=== PATIENT | female | born 1940 | race Caucasian/White ===

== ENCOUNTER 2016-08-20 12:11 | Outpatient (CLI) | payer MEDICARE, OTHER | END 2016-08-20 23:59 | DX: I48.2 Chronic atrial fibrillation (principal); E87.6 Hypokalemia ==

== ENCOUNTER 2016-10-07 12:48 | Outpatient (CLI) | payer MEDICARE, OTHER | END 2016-10-07 12:49 | disposition home or self-care (01) | DX: I48.0 Paroxysmal atrial fibrillation (principal); R35.0 Frequency of micturition ==

== ENCOUNTER 2016-10-08 08:00 | Outpatient (CLI) | payer MEDICARE, OTHER | END 2016-10-08 08:01 | DX: R35.0 Frequency of micturition (principal) ==

== ENCOUNTER 2016-11-17 09:58 | Outpatient (CLI) | payer MEDICARE, OTHER | END 2016-11-17 09:59 | disposition home or self-care (01) | LOC: LAB.F 09:58 | PROVIDERS: ATTEND Internal Medicine Cardiovascular Disease | DX: I48.2 Chronic atrial fibrillation (principal) | CPT/HCPCS: 85610 ==

== ENCOUNTER 2016-11-27 10:13 | Outpatient (CLI) | payer MEDICARE, OTHER ==
[2016-11-27 18:07] LABS: INR 1.8 (0.8-1.2); PT - PROTHROMBIN TIME 20.9 secs (9.9-12.6)
== END 2016-11-27 10:14 | disposition home or self-care (01) ==
LOC: LAB.F 10:13
PROVIDERS: ATTEND Internal Medicine Cardiovascular Disease
DX: I48.2 Chronic atrial fibrillation (principal)
CPT/HCPCS: 36415; 85025; 85610

== ENCOUNTER 2017-05-20 08:00 | Outpatient (CLI) | payer MEDICARE, OTHER | END 2017-05-20 23:59 | LOC: LAB.F 08:00 | PROVIDERS: ATTEND Internal Medicine Cardiovascular Disease | DX: I48.2 Chronic atrial fibrillation (principal) | CPT/HCPCS: 85610 ==

== ENCOUNTER 2017-06-18 13:02 | Outpatient (CLI) | payer MEDICARE, OTHER ==
[2017-06-18 17:52] LABS: ALBUMIN 3.6 g/dL (3.2-5.5); ALBUMIN/GLOBULIN RATIO 1.1 (1.0-2.2); ALKALINE PHOSPHATASE 83 IU/L (42-121); ALT ALANINE AMINOTRANSFERASE 15 IU/L (10-60); AST ASPARTATE AMINOTRANSFERASE 19 IU/L (10-42); BILIRUBIN,TOTAL 0.5 mg/dL (0.2-1.0); BUN - BLOOD UREA NITROGEN 29 mg/dL (6-20); CALCIUM 8.3 mg/dL (8.5-10.3); CARBON DIOXIDE - CO2 29 mmol/L (21-32); CHLORIDE 99 mmol/L (101-111); CHOL/HDL RATIO 4.9 (<4.4); CHOLESTEROL 230 mg/dL; CREATININE 1.2 mg/dL (0.4-1.0); GFR - MDRD 43 (>89); GLUCOSE 102 mg/dL (70-100); HDL CHOLESTEROL 47 mg/dL; LDL CHOLESTEROL,CALCULATED 120 mg/dL; LDL/HDL RATIO 2.6 (<4.4); SODIUM 137 mmol/L (135-145); TOTAL PROTEIN 6.9 g/dL (6.7-8.2); VLDL CHOLESTEROL 63 mg/dL
[2017-06-18 17:54] LABS: BASOPHILS % (AUTO) 0.6 %; EOSINOPHILS # (AUTO) 0.1 10^3/uL (0.0-0.7); EOSINOPHILS % (AUTO) 1.9 %; HGB - HEMOGLOBIN 12.5 g/dL (12.0-16.0); LYMPHOCYTES # (AUTO) 1.5 10^3/uL (1.5-3.5); LYMPHOCYTES % (AUTO) 20.5 %; MEAN CORPUSCULAR HEMOGLOBIN 26.6 pg (27.0-31.0); MEAN CORPUSCULAR HGB CONC 31.8 g/dL (32.0-36.0); MEAN CORPUSCULAR VOLUME 83.8 fL (81.0-99.0); MEAN PLATELET VOLUME 8.3 fL (7.9-10.8); MONOCYTES # (AUTO) 0.7 10^3/uL (0.0-1.0); MONOCYTES % (AUTO) 8.7 %; NEUTROPHILS # (AUTO) 5.1 10^3/uL (1.5-6.6); NEUTROPHILS % (AUTO) 68.3 %; PLT - PLATELET COUNT 330 10^3/uL (130-450); RED BLOOD COUNT 4.68 10^6/uL (4.20-5.40); WHITE BLOOD COUNT 7.5 x10^3/uL (4.8-10.8)
[2017-06-18 18:09] LABS: HB2 TOTAL 13.1 g/dL; HEMOGLOBIN A1C 0.56 g/dL; HEMOGLOBIN A1C % 6.1 % (4.6-6.2)
== END 2017-06-18 13:03 | disposition home or self-care (01) ==
LOC: LAB.F 13:02
PROVIDERS: ATTEND Internal Medicine Cardiovascular Disease
DX: E11.9 Type 2 diabetes mellitus without complications (principal); Z79.01 Long term (current) use of anticoagulants; I48.91 Unspecified atrial fibrillation; I10 Essential (primary) hypertension; I48.2 Chronic atrial fibrillation
CPT/HCPCS: 36415; 80053; 80061; 83036; 84443; 85025; 85610

== ENCOUNTER 2017-08-28 19:18 | Outpatient (CLI) | payer MEDICARE, OTHER | END 2017-08-28 19:19 | disposition critical access hospital (66) | LOC: EMS 19:18 | PROVIDERS: ATTEND Surgery | DX: Z03.89 Encounter for observation for other suspected diseases and conditions ruled out (principal); W18.39XA Other fall on same level, initial encounter; Y92.039 Unspecified place in apartment as the place of occurrence of the external cause | CPT/HCPCS: A0425; A0429 ==

== ENCOUNTER 2017-08-28 19:42 | Emergency (ER) | payer MEDICARE, OTHER ==
--- NOTE | 2017-08-28 21:00 | ED Physician Documentation ---
PD HPI FOCAL NEURO - Stated complaint Stated Complaint: WEAKNESS - Chief complaint Chief Complaint: Neuro - History obtained from History obtained from: Patient, Family () - History of Present Illness Timing - onset: Other (This is a modestly demented 76-year-old woman with history of diabetes who the noticed after sitting down after lunch today she was having difficulty with the right side was unable to walk normally. 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 - Present Medications Home Medications: Ambulatory Orders Medication Instructions Recorded Confirmed Cephalexin [Keflex] 500 mg PO QID PRN 08/28/17 Ciprofloxacin [Cipro] 250 mg PO Q12H #5 tablet 08/28/17 Diltiazem HCl [Diltiazem 24Hr Cd] 360 mg PO DAILY 08/28/17 Donepezil HCl [Donepezil HCl Odt] 10 mg PO DAILY 08/28/17 Furosemide [Lasix] 40 mg PO DAILY 08/28/17 Losartan Potassium 100 mg PO DAILY 08/28/17 Metformin HCl [Metformin HCl ER] 500 mg PO 08/28/17 Metoprolol Succinate 50 mg PO DAILY 08/28/17 Nystatin [Nystop] 1 applic TOP TID 14 Days #2 bottle 08/28/17 Sertraline HCl 100 mg PO DAILY 08/28/17 Triamcinolone 0.1% Cream [Kenalog 1 appful PRN 08/28/17 0.1% Cream] Warfarin [Coumadin] 5 - 7.5 mg PO DAILY 08/28/17 - Allergies Allergies/Adverse Reactions: Allergies Allergy/AdvReac Type Severity Reaction Status Date / Time No Known Drug Allergies Allergy Verified 08/28/17 19:49 - Social History Does the pt smoke?: No Smoking Status: Never smoker Does the pt drink ETOH?: No Does the pt have substance abuse?: No - Immunizations Immunizations are current?: Yes PD ED PE NORMAL - Vitals Vital signs reviewed: Yes - General General: Other (She does know the month and the year and is cooperative but a poor historian for short-term events and defers to her for answers on those.) - HEENT HEENT: PERRL, EOMI, Pharynx benign - Neck Neck: Supple, no meningeal sign, No bony TTP - Cardiac Cardiac: No murmur, Other (Frequent extrasystoles) - Respiratory Respiratory: No respiratory distress, Clear bilaterally - Abdomen Abdomen: Non tender, Non distended - Derm Derm: Normal color, Warm and dry, Other (Per Nurse, bad yeast infection under the breasts) - Extremities Extremities: No edema, No calf tenderness / cord - Neuro Neuro: Alert and oriented X 3 Eye Opening: Spontaneous Motor: Obeys Commands Verbal: Oriented GCS Score: 15 - Psych Psych: Normal mood, Normal affect NIHSS - Time Time: 20:50 - Level of Consciousness Level of consciousness: (0) Alert, Keenly responsive LOC Questions: (0) Answers both Q's correct LOC Commands: (0) Performs both correctly - Gaze Best Gaze: (0) Normal - Visual Visual: (0) No loss - Facial Palsy Facial Palsy: (0) Normal, symmetrical movement - Motor Arms (both separate) Motor Arm (right): (0) No drift Motor Arm (left): (0) No drift - Motor Legs (both separate) Motor Leg (right): (0) No drift Motor Leg (left): (0) No drift - Limb Ataxia Limb Ataxia: (0) Absent - Sensory Sensory: (0) Normal - Best Language Best Language: (0) No aphasia - Dysarthria Dysarthria: (0) Normal - Extinction and Inattention (formally neg Extinction and inattention: (0) No abnormality - Total Score/Results Total Score/Result: 0 Results - Vitals Vitals: Vital Signs - 24 hr 08/28/17 08/28/17 19:44 20:53 Temperature 36.9 C Heart Rate 99 78 Respiratory 18 20 Rate Blood Pressure 123/108 H 118/74 O2 Saturation 95 95 Oxygen O2 Source Room air - EKG (time done) 2107 Rate: Rate (enter#) (77) Rhythm: Atrial fibrillation [place]: Normal QRS: Normal Ischemia: Normal ST segments Computer interpretation: Agree with computer - Labs Labs: Laboratory Tests 08/28/17 08/28/17 08/28/17 21:36 21:36 21:36 WBC 11.9 H RBC 4.70 Hgb 12.4 Hct 39.2 MCV 83.4 MCH 26.5 L MCHC 31.7 L RDW 15.6 H Plt Count 371 MPV 7.1 L Neut # 9.3 H Lymph # 1.4 L [place] # 0.9 Eos # 0.2 Baso # 0.1 Absolute Nucleated RBC 0.00 Nucleated RBC % 0.0 PT 28.0 H INR 2.6 H Sodium 137 Potassium 3.8 Chloride 97 L Carbon Dioxide 31 Anion Gap 9.0 BUN 30 H Creatinine 1.1 H Estimated GFR (MDRD) 48 L Glucose 115 H Calcium 8.5 Total Bilirubin 0.4 AST 23 ALT 17 Alkaline Phosphatase 93 Total Protein 7.6 Albumin 3.9 Globulin 3.7 Albumin/Globulin Ratio 1.1 Lipase 31 Urine Color Urine Clarity Urine pH Ur Specific [place] Urine Protein Urine Glucose (UA) Urine Ketones Urine Occult Blood Urine Nitrite Urine Bilirubin Urine Urobilinogen Ur Leukocyte Esterase Urine RBC Urine WBC Ur Squamous Epith Cells Urine Bacteria Urine Casts Urine Mucus Ur Microscopic Review Urine Culture Comments 08/28/17 21:53 WBC RBC Hgb Hct MCV MCH MCHC RDW Plt Count MPV Neut # Lymph # [place] # Eos # Baso # Absolute Nucleated RBC Nucleated RBC % PT INR Sodium Potassium Chloride Carbon Dioxide Anion Gap BUN Creatinine Estimated GFR (MDRD) Glucose Calcium Total Bilirubin AST ALT Alkaline Phosphatase Total Protein Albumin Globulin Albumin/Globulin Ratio Lipase Urine Color YELLOW Urine Clarity CLEAR Urine pH 5.5 Ur Specific [place] 1.020 Urine Protein NEGATIVE Urine Glucose (UA) NEGATIVE Urine Ketones NEGATIVE Urine Occult Blood NEGATIVE Urine Nitrite POSITIVE H Urine Bilirubin NEGATIVE Urine Urobilinogen 0.2 (NORMAL) Ur Leukocyte Esterase SMALL H Urine RBC 0-5 Urine WBC 11-25 H Ur Squamous Epith Cells FEW Squamous Urine Bacteria Moderate H Urine Casts 6-10 Hyaline Casts Urine Mucus Few Strands Ur Microscopic Review INDICATED Urine Culture Comments INDICATED - Rads (name of study) CT Head Radiology: EMP read contemporaneously (NAD) PD MEDICAL DECISION MAKING - ED course ED course: 76-year-old woman with dementia presents after a fall with a head injury. Head CT was negative, workup notable for therapeutic INR with positive urinalysis. She was able to walk fine here with the did vision of a walker and is placed on Cipro for the UTI and her felt comfortable taking her home. Departure - Departure Disposition: 01 Home, Self Care Clinical Impression: Urinary tract infection Qualifiers: Urinary tract infection type: acute cystitis Hematuria presence: without hematuria Qualified Code(s): N30.00 - Acute cystitis without hematuria Fall Qualifiers: Encounter type: initial encounter Qualified Code(s): W19.XXXA - Unspecified fall, initial encounter Head injury Qualifiers: Encounter type: initial encounter Qualified Code(s): S09.90XA - Unspecified injury of head, initial encounter Condition: Good Record reviewed to determine appropriate education?: Yes Instructions: ED UTI Cystitis Female Prescriptions: Ciprofloxacin [Cipro] 250 mg PO Q12H #5 tablet Nystatin [Nystop] 1 applic TOP TID 14 Days #2 bottle Comments: Often times when you start antibiotics while you are taking anticoagulants such as Coumadin or warfarin, your INR will go up. You need to have your INR checked frequently while on the antibiotics. Have it checked in 3 days, again in 6 days, and at least weekly while you are on antibiotics. Dose adjustments of your anticoagulants may be necessary. SKIP YOUR WARFARIN DOSE TOMORROW Call your doctor to arrange a follow-up appointment, make the next available appointment. In the interim, return anytime if worse or if new symptoms develop. We will culture your urine, the results should be done in 48-72 hours. If an antibiotic change is necessary we will call you. Return if worse in the meantime, especially if you develop increasing flank pain, fevers, or cannot keep down the medication.
--- NOTE | 2017-08-28 21:33 | CT Report ---
EXAM: CT HEAD EXAM DATE: 08/28/2017 09:20 PM. CLINICAL HISTORY: Weakness COMPARISON: None. TECHNIQUE: Multiaxial CT images were obtained from the foramen magnum to the vertex. Reformats: Coron al. IV contrast: None. In accordance with CT protocol optimization, one or more of the following dose reduction techniques w ere utilized for this exam: automated exposure control, adjustment of mA and/or KV based on patient s ize, or use of iterative reconstructive technique. FINDINGS: Parenchyma: No intraparenchymal hemorrhage. No evidence of mass, midline shift, or CT findings of acu te infarction. There is scattered periventricular white matter hypodensity which may represent small vessel schema disease. Extraaxial Spaces: Normal for age. No subdural or epidural collections identified. Ventricles: Normal in size and position. Sinuses and Orbits: Imaged paranasal sinuses, orbits, and mastoids show no significant abnormality. Bones: No evidence of fracture or calvarial defect. Other: None. IMPRESSION: No acute intracranial CT abnormality. [facility] Referring Provider Line: [phone] SITE ID: [id number]
[2017-08-28 21:42] LABS: BASOPHILS # (AUTO) 0.1 10^3/uL (0.0-0.1); BASOPHILS % (AUTO) 0.8 %; EOSINOPHILS # (AUTO) 0.2 10^3/uL (0.0-0.7); EOSINOPHILS % (AUTO) 1.5 %; HGB - HEMOGLOBIN 12.4 g/dL (12.0-16.0); LYMPHOCYTES # (AUTO) 1.4 10^3/uL (1.5-3.5); LYMPHOCYTES % (AUTO) 11.8 %; MEAN CORPUSCULAR HEMOGLOBIN 26.5 pg (27.0-31.0); MEAN CORPUSCULAR HGB CONC 31.7 g/dL (32.0-36.0); MEAN CORPUSCULAR VOLUME 83.4 fL (81.0-99.0); MEAN PLATELET VOLUME 7.1 fL (7.9-10.8); MONOCYTES # (AUTO) 0.9 10^3/uL (0.0-1.0); MONOCYTES % (AUTO) 7.7 %; NEUTROPHILS # (AUTO) 9.3 10^3/uL (1.5-6.6); NEUTROPHILS % (AUTO) 78.2 %; PLT - PLATELET COUNT 371 10^3/uL (130-450); RED CELL DISTRIBUTION WIDTH 15.6 % (12.0-15.0); WHITE BLOOD COUNT 11.9 x10^3/uL (4.8-10.8)
[2017-08-28] MEDS ORDERED: NYSTATIN POWDER 15 GM TOP STA (21:47)
[2017-08-28 21:49] LABS: INR 2.6 (0.8-1.2)
[2017-08-28 21:56] LABS: ALBUMIN 3.9 g/dL (3.2-5.5); ALBUMIN/GLOBULIN RATIO 1.1 (1.0-2.2); BILIRUBIN,TOTAL 0.4 mg/dL (0.2-1.0); CALCIUM 8.5 mg/dL (8.5-10.3); CREATININE 1.1 mg/dL (0.4-1.0); TOTAL PROTEIN 7.6 g/dL (6.7-8.2)
[2017-08-28 22:07] LABS: BILIRUBIN,URINE NEGATIVE (NEGATIVE); GLUCOSE, URINE (UA) NEGATIVE (NEGATIVE); KETONES,URINE (UA) NEGATIVE (NEGATIVE); LEUKOCYTE ESTERASE, URINE SMALL (NEGATIVE); NITRITE,URINE POSITIVE (NEGATIVE); OCCULT BLOOD,URINE NEGATIVE (NEGATIVE); PH,URINE 5.5 PH (5.0-7.5); PROTEIN,URINE NEGATIVE (NEGATIVE); UROBILINOGEN,URINE 0.2 (NORMAL) E.U./dL (NORMAL)
[2017-08-28 22:10] LABS: CLARITY,URINE CLEAR (CLEAR)
[2017-08-28 22:20] LABS: BACTERIA,URINE Moderate /HPF (None Seen); RBC,URINE 0-5 /HPF (0-5); SQUAMOUS EPITHELIAL CELL,UR FEW Squamous (<= Few)
[2017-08-28 22:21] LABS: CASTS, URINE 6-10 Hyaline Casts /LPF; MUCUS,URINE Few Strands
[2017-08-28] MEDS ORDERED: CIPROFLOXACIN 250 MG TABLET PO STA (22:43)
[2017-08-28 23:31] VITALS: BP 120/72
== END 2017-08-28 23:00 | disposition home or self-care (01) ==
LOC: EDUNIT# → ED 19:42
DX: N30.00 Acute cystitis without hematuria (principal); S09.90XA Unspecified injury of head, initial encounter; W18.39XA Other fall on same level, initial encounter; Y93.01 Activity, walking, marching and hiking; E11.9 Type 2 diabetes mellitus without complications; I11.0 Hypertensive heart disease with heart failure; I50.9 Heart failure, unspecified; F03.90 Unspecified dementia, unspecified severity, without behavioral disturbance, psychotic disturbance, mood disturbance, and anxiety; F32.9 Major depressive disorder, single episode, unspecified; I48.91 Unspecified atrial fibrillation; Z79.84 Long term (current) use of oral hypoglycemic drugs; Z79.01 Long term (current) use of anticoagulants; Z79.899 Other long term (current) drug therapy
CPT/HCPCS: 36415; 51701; 70450; 80053; 81001; 83690; 85025; 85610; 87086; 87181; 93005; 99283; 99284; A9270; 81003

== ENCOUNTER 2017-09-28 10:39 | Outpatient (CLI) | payer MEDICARE, OTHER ==
[2017-09-28 19:09] LABS: ALBUMIN 3.7 g/dL (3.2-5.5); ALKALINE PHOSPHATASE 91 IU/L (42-121); ALT ALANINE AMINOTRANSFERASE 16 IU/L (10-60); AST ASPARTATE AMINOTRANSFERASE 17 IU/L (10-42); BILIRUBIN,TOTAL 0.6 mg/dL (0.2-1.0); BUN - BLOOD UREA NITROGEN 29 mg/dL (6-20); CALCIUM 8.5 mg/dL (8.5-10.3); CARBON DIOXIDE - CO2 29 mmol/L (21-32); CHLORIDE 98 mmol/L (101-111); CHOLESTEROL 205 mg/dL; CREATININE 1.1 mg/dL (0.4-1.0); GFR - MDRD 48 (>89); GLUCOSE 88 mg/dL (70-100); HDL CHOLESTEROL 41 mg/dL; LDL CHOLESTEROL,CALCULATED 114 mg/dL; LDL/HDL RATIO 2.8 (<4.4); SODIUM 136 mmol/L (135-145); TOTAL PROTEIN 7.3 g/dL (6.7-8.2); VLDL CHOLESTEROL 50 mg/dL
[2017-09-28 19:13] LABS: HB2 TOTAL 12.8 g/dL; HEMOGLOBIN A1C 0.51 g/dL; HEMOGLOBIN A1C % 5.8 % (4.6-6.2)
== END 2017-09-28 10:40 | disposition home or self-care (01) ==
LOC: LAB.F 10:39
PROVIDERS: ATTEND Internal Medicine
DX: E11.9 Type 2 diabetes mellitus without complications (principal)
CPT/HCPCS: 36415; 80053; 80061; 82043; 83036; 83721; 84443

== ENCOUNTER 2018-02-26 13:24 | Outpatient (CLI) | payer MEDICARE, OTHER ==
[2018-02-26 18:17] LABS: BASOPHILS % (AUTO) 0.7 %; EOSINOPHILS # (AUTO) 0.1 10^3/uL (0.0-0.7); EOSINOPHILS % (AUTO) 2.1 %; HGB - HEMOGLOBIN 11.4 g/dL (12.0-16.0); LYMPHOCYTES # (AUTO) 1.2 10^3/uL (1.5-3.5); LYMPHOCYTES % (AUTO) 18.3 %; MEAN CORPUSCULAR HEMOGLOBIN 25.7 pg (27.0-31.0); MEAN CORPUSCULAR HGB CONC 31.7 g/dL (32.0-36.0); MEAN CORPUSCULAR VOLUME 80.9 fL (81.0-99.0); MEAN PLATELET VOLUME 7.6 fL (7.9-10.8); MONOCYTES # (AUTO) 0.5 10^3/uL (0.0-1.0); MONOCYTES % (AUTO) 8.3 %; NEUTROPHILS # (AUTO) 4.5 10^3/uL (1.5-6.6); NEUTROPHILS % (AUTO) 70.6 %; PLT - PLATELET COUNT 402 10^3/uL (130-450); RED BLOOD COUNT 4.46 10^6/uL (4.20-5.40); RED CELL DISTRIBUTION WIDTH 15.9 % (12.0-15.0); WHITE BLOOD COUNT 6.4 x10^3/uL (4.8-10.8)
[2018-02-26 19:54] LABS: ALBUMIN 3.4 g/dL (3.2-5.5); ALBUMIN/GLOBULIN RATIO 0.9 (1.0-2.2); BILIRUBIN,TOTAL 0.3 mg/dL (0.2-1.0); CALCIUM 8.5 mg/dL (8.5-10.3); CREATININE 1.2 mg/dL (0.4-1.0); TOTAL PROTEIN 7.3 g/dL (6.7-8.2)
== END 2018-02-26 13:25 | disposition home or self-care (01) ==
LOC: LAB.F 13:24
DX: L29.9 Pruritus, unspecified (principal)
CPT/HCPCS: 36415; 80053; 83036; 83540; 84443; 84466; 85025

== ENCOUNTER 2018-03-27 11:11 | Outpatient (CLI) | payer MEDICARE, OTHER | END 2018-03-27 11:12 | disposition critical access hospital (66) | LOC: EMS 11:11 | PROVIDERS: ATTEND Surgery | DX: R53.1 Weakness (principal) | CPT/HCPCS: A0425; A0429 ==

== ENCOUNTER 2018-03-27 11:37 | Inpatient (IN) | payer MEDICARE, OTHER ==
[2018-03-27] MEDS ORDERED: SODIUM CHLORIDE 0.9% 1,000 ML IV ONE (11:46)
--- NOTE | 2018-03-27 11:49 | ED Physician Documentation ---
History of Present Illness - Stated complaint Stated Complaint: INCREASED WEAKNESS - Chief complaint Chief Complaint: General - History obtained from History obtained from: Patient, EMS - History of Present Illness Timing: Last night - Additonal information Additional information: 77-year-old female with dementia who is in her usual state of health until about 3 days ago when she began to slow down a bit. The patient herself is unaware of any increased weakness but the patient's has called 911 with a chief complaint of increased weakness and concern about a recurrence of urinary tract infection. Patient has been treated for urinary tract infection previously with similar presenting symptoms. The notes that she is an avid reader and she stopped reading and stopped eating about 3 days ago. She has been weak and required assistance to get in and out of bed. Review of Systems Constitutional: denies: Fever, Chills Eyes: denies: Decreased vision Ears: denies: Ear pain Nose: denies: Rhinorrhea / runny nose, Congestion Throat: denies: Sore throat Cardiac: denies: Chest pain / pressure, Palpitations Respiratory: denies: Dyspnea, Cough GI: denies: Abdominal Pain, Nausea, Vomiting : denies: Dysuria, Frequency Skin: denies: Rash Musculoskeletal: denies: Neck pain, Back pain, Extremity pain, Extremity swelling Neurologic: reports: Generalized weakness. 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 - Present Medications Home Medications: Ambulatory Orders Medication Instructions Recorded Confirmed Furosemide [Lasix] 40 mg PO DAILY 08/28/17 03/27/18 RX: Donepezil HCl [Donepezil HCl 10 mg PO QPM 08/28/17 03/27/18 Odt] RX: Losartan Potassium 100 mg PO DAILY 08/28/17 03/27/18 RX: Metoprolol Succinate 100 mg PO DAILY 08/28/17 03/27/18 RX: Sertraline HCl 100 mg PO QPM 08/28/17 03/27/18 RX: Warfarin [Coumadin] 5 mg PO SUTUTHSA@0900 08/28/17 03/27/18 RX: dilTIAZem HCl [Diltiazem 24Hr 360 mg PO DAILY 08/28/17 03/27/18 Cd] Duloxetine HCl 30 mg PO DAILY 03/27/18 03/27/18 Metformin HCl 500 mg PO BIDWM 03/27/18 03/27/18 RX: Warfarin Sodium 7.5 mg PO MOWEFR@0900 03/27/18 03/27/18 - Allergies Allergies/Adverse Reactions: Allergies Allergy/AdvReac Type Severity Reaction Status Date / Time No Known Drug Allergies Allergy Verified 08/28/17 19:49 - Social History Does the pt smoke?: No Smoking Status: Never smoker Does the pt drink ETOH?: No Does the pt have substance abuse?: No - Immunizations Immunizations are current?: Yes PD ED PE NORMAL - Vitals Vital signs reviewed: Yes (hypertensive ) - General General: No acute distress, Well developed/nourished - HEENT HEENT: Atraumatic, PERRL, EOMI - Neck Neck: Supple, no meningeal sign, No bony TTP - Cardiac Cardiac: No murmur, Other (irregularly irregular with 2/6 holosystolic murmer at LSB) - Respiratory Respiratory: No respiratory distress, Clear bilaterally - Abdomen Abdomen: Soft, Non tender - Back Back: No CVA TTP, No spinal TTP - Derm Derm: Normal color, Warm and dry, No rash - Extremities Extremities: No deformity, No edema - Neuro Neuro: audiovisual tech 2-12 intact, No motor deficit, No sensory deficit, Normal speech Eye Opening: Spontaneous Motor: Obeys Commands Verbal: Confused GCS Score: 14 - Psych Psych: Normal mood, Normal affect Results - Vitals Vitals: Vital Signs - 24 hr 03/27/18 03/27/18 11:39 13:18 Temperature 36.2 C L 36.1 C L Heart Rate 82 78 Respiratory 14 18 Rate Blood Pressure 136/81 H 148/75 H O2 Saturation 95 96 Oxygen O2 Source Room air - EKG (time done) 1440 Rate: Rate (enter#) (87) Rhythm: NSR QRS: LVH, Poor R wave progression Compare to prior EKG: Changed from prior EKG (SPT 08-28-2017 the rhythm has changed to sinus and LVH has developed. ) Computer interpretation: Agree with computer - Labs Labs: Laboratory Tests 03/27/18 03/27/18 03/27/18 12:30 12:30 12:30 WBC 28.1 H RBC 4.91 Hgb 12.4 Hct 38.5 MCV 78.4 L MCH 25.3 L MCHC 32.3 RDW 16.9 H Plt Count 329 MPV 8.2 Neut # (Auto) 26.2 H Lymph # (Auto) 0.7 L [place] # (Auto) 1.2 H Eos # (Auto) 0.0 Baso # (Auto) 0.0 Absolute Nucleated RBC 0.01 Band Neuts % (Manual) Not Reportable Abnorm Lymph % (Manual) Not Reportable Nucleated RBC % 0.0 Neutrophils # (Manual) Not Reportable Lymphocytes # (Manual) Not Reportable Monocytes # (Manual) Not Reportable Eosinophils # (Manual) Not Reportable Basophils # (Manual) Not Reportable Differential Comment MANUAL=AUTO DIFF Manual Slide Review Indicated Platelet Estimate NORMAL (130-450,000) Platelet Morphology NORMAL APPEARANCE RBC Morph Micro Appear NORMAL APPEARANCE PT INR Sodium 136 Potassium 4.1 Chloride 98 L Carbon Dioxide 23 Anion Gap 15.0 H BUN 74 H Creatinine 3.8 H Estimated GFR (MDRD) 11 L Glucose 133 H Lactic Acid Uric Acid Calcium 8.5 Magnesium Total Bilirubin 1.5 H AST 53 H ALT 59 Alkaline Phosphatase 94 Total Creatine Kinase Troponin I 0.23 B-Natriuretic Peptide Total Protein 7.4 Albumin 3.1 L Globulin 4.3 H Albumin/Globulin Ratio 0.7 L Lipase 20 L 03/27/18 03/27/18 03/27/18 12:30 12:30 12:30 WBC RBC Hgb Hct MCV MCH MCHC RDW Plt Count MPV Neut # (Auto) Lymph # (Auto) [place] # (Auto) Eos # (Auto) Baso # (Auto) Absolute Nucleated RBC Band Neuts % (Manual) Abnorm Lymph % (Manual) Nucleated RBC % Neutrophils # (Manual) Lymphocytes # (Manual) Monocytes # (Manual) Eosinophils # (Manual) Basophils # (Manual) Differential Comment Manual Slide Review Platelet Estimate Platelet Morphology RBC Morph Micro Appear PT 23.9 H INR 2.2 H Sodium Potassium Chloride Carbon Dioxide Anion Gap BUN Creatinine Estimated GFR (MDRD) Glucose Lactic Acid Uric Acid 9.9 H Calcium Magnesium 1.9 Total Bilirubin AST ALT Alkaline Phosphatase Total Creatine Kinase 342 H Troponin I B-Natriuretic Peptide Total Protein Albumin Globulin Albumin/Globulin Ratio Lipase 03/27/18 03/27/18 12:30 12:45 WBC RBC Hgb Hct MCV MCH MCHC RDW Plt Count MPV Neut # (Auto) Lymph # (Auto) [place] # (Auto) Eos # (Auto) Baso # (Auto) Absolute Nucleated RBC Band Neuts % (Manual) Abnorm Lymph % (Manual) Nucleated RBC % Neutrophils # (Manual) Lymphocytes # (Manual) Monocytes # (Manual) Eosinophils # (Manual) Basophils # (Manual) Differential Comment Manual Slide Review Platelet Estimate Platelet Morphology RBC Morph Micro Appear PT INR Sodium Potassium Chloride Carbon Dioxide Anion Gap BUN Creatinine Estimated GFR (MDRD) Glucose Lactic Acid 2.2 Uric Acid Calcium Magnesium Total Bilirubin AST ALT Alkaline Phosphatase Total Creatine Kinase Troponin I B-Natriuretic Peptide 4606 H Total Protein Albumin Globulin Albumin/Globulin Ratio Lipase - Rads (name of study) 2 veiw chest Radiology: Prelim report reviewed (Impression: 1. Bilateral basilar streaky atelectasis or infiltrate, right greater than left.2 Small bilateral pleural effusions, right greater than left. 3 Stable mild cardiomegaly.), EMP read indepedently, See rad report Procedures - IVC sono (time) 1145 Bedside IVC sono: IVC measures (cm) (1.22), IVC collapsed c insp (cm) (complete), Dehydration (est 1 liter deficit) PD MEDICAL DECISION MAKING - ED course Complexity details: reviewed results, re-evaluated patient, considered differential, d/w patient, d/w family ED course: 77-year-old female with decreased activity decreased appetite and weakness over the past 3 days appears to have acute kidney injury and evidence of pneumonia on chest x-ray. She is found to be dehydrated on interrogation the inferior vena cava and IV saline is started as well as IV Rocephin. Departure - Departure Disposition: 66 [facility] DC/Xfer Clinical Impression: Pneumonia Qualifiers: Pneumonia type: due to unspecified organism Laterality: bilateral Lung location: lower lobe of lung Qualified Code(s): J18.1 - Lobar pneumonia, unspecified organism Condition: Fair
[2018-03-27 12:46] LABS: INR 2.2 (0.8-1.2); PT - PROTHROMBIN TIME 23.9 secs (9.9-12.6)
[2018-03-27 12:51] LABS: ALBUMIN 3.1 g/dL (3.2-5.5); ALBUMIN/GLOBULIN RATIO 0.7 (1.0-2.2); BILIRUBIN,TOTAL 1.5 mg/dL (0.2-1.0); CALCIUM 8.5 mg/dL (8.5-10.3); CREATININE 3.8 mg/dL (0.4-1.0); TOTAL PROTEIN 7.4 g/dL (6.7-8.2)
[2018-03-27 12:55] LABS: EOSINOPHILS % (AUTO) 0.1 %; HGB - HEMOGLOBIN 12.4 g/dL (12.0-16.0); LYMPHOCYTES # (AUTO) 0.7 10^3/uL (1.5-3.5); LYMPHOCYTES % (AUTO) 2.5 %; MEAN CORPUSCULAR HEMOGLOBIN 25.3 pg (27.0-31.0); MEAN CORPUSCULAR HGB CONC 32.3 g/dL (32.0-36.0); MEAN CORPUSCULAR VOLUME 78.4 fL (81.0-99.0); MEAN PLATELET VOLUME 8.2 fL (7.9-10.8); MONOCYTES # (AUTO) 1.2 10^3/uL (0.0-1.0); MONOCYTES % (AUTO) 4.3 %; NEUTROPHILS # (AUTO) 26.2 10^3/uL (1.5-6.6); NEUTROPHILS % (AUTO) 93.1 %; PLT - PLATELET COUNT 329 10^3/uL (130-450); RED BLOOD COUNT 4.91 10^6/uL (4.20-5.40); RED CELL DISTRIBUTION WIDTH 16.9 % (12.0-15.0); WHITE BLOOD COUNT 28.1 x10^3/uL (4.8-10.8)
--- NOTE | 2018-03-27 12:57 | XRAY Report ---
Reason: weakness/diminished breath sounds. Procedure Date: 03/27/2018 Accession Number: [id number] / [id number] Procedure: XR - Chest 2 View X-Ray CPT Code: 98435 FULL RESULT: EXAM: CHEST RADIOGRAPHY EXAM DATE: 03/27/2018 12:17 PM. CLINICAL HISTORY: Weakness/diminished breath sounds. COMPARISON: XR CHEST PA AND LAT 09/10/2012 9:26 AM. TECHNIQUE: 2 views. FINDINGS: Lungs/Pleura: There are mild streaky bilateral basilar pulmonary opacities, right greater than left. Small bilateral pleural effusions are present, right greater than left. No pneumothorax. Mediastinum: There is stable mild enlargement of the cardiac silhouette. Other: No acute osseous normality. There are mild degenerative changes of the thoracic spine. IMPRESSION: 1. Bilateral basilar streaky atelectasis or infiltrate, right greater than left. 2. Small bilateral pleural effusions, right greater than left. 3. Stable mild cardiomegaly. [facility]
[2018-03-27 13:04] LABS: DIFFERENTIAL COMMENT MANUAL=AUTO DIFF; PLATELET ESTIMATE, MANUAL NORMAL (130-450,000) (NORMAL); PLATELET MORPHOLOGY NORMAL APPEARANCE (NORMAL); RBC MORPHOLOGY (MULTIPLE) NORMAL APPEARANCE (NORMAL)
[2018-03-27] MEDS ORDERED: cefTRIAXone 1 GM in SODIUM CHLORIDE 0.9% MINIBAG 100 ML IV STA (13:42)
[2018-03-27] MEDS ORDERED: ONDANSETRON ODT 4 MG TABLET TL PRN (13:56)
[2018-03-27] MEDS ORDERED: MORPHINE 2 MG/ML CARPUJECT IVP PRN (13:56)
[2018-03-27] MEDS ORDERED: ONDANSETRON 4 MG/2 ML VIAL IVP PRN (13:56)
[2018-03-27] MEDS ORDERED: PIPERACILLIN/TAZOBACTAM 2.25 GM in SODIUM CHLORIDE 0.9% MINIBAG 100 ML IV SCH (14:00)
[2018-03-27 14:09] LABS: URIC ACID 9.9 mg/dL (2.6-7.2)
--- NOTE | 2018-03-27 14:31 | ADVANCE CARE PLANNING NOTE ---
Advance Care Planning - Date/Time Date: 03/27/18 Time: 14:00 - Purpose of encounter Text: Goals of care - Parties in attendance Parties in attendance: [place]--Spouse - Decisional capacity Decisional capacity of: Patient lacks mental capacity to make decisions on her behalf - Subjective/Patient's story Subjective/Patient's story: 77 y/o demented patient with mod-severe alzheimers, dm-2, HTN, hyperlipidemia, prior UTI's, chronic afib being anticoagulant on coumadin presents to ED with failure to thrive, decreased oral intake, and severe weakness for which she was unable to get up. Patient typically ambulates via cane and spouse stated today shge was not ambulatory and essentially "stopped eating". In the ED patient was found to be in acute renal failure with a cr 3.8, trop was elevated 0.23 although she was not in RVR afib, but CXR did reveal bilateral pneumonia R>L worse with associated bilateral pleural effusions. Patient was not afebrile but WBC was at 28.1, with normal electrolytes, and plts as well as glucose were not abnormal. Patient was therapeutic with INR 2.2 and lactic acid was only 2.2, uric acid was elevated as well as Tbili to indicate dehydrate status. Patient is a DNR with limited interventions with IV meds, Bipap and reversal causes which was explained to spouse and POLST was signed by him as surrogate due to patient's mod-severe Alzheimer dementia with lack of decisional making capacity. - Objective/Medical story Objective/Medical Story: On exam patient had variable RVR afib and was non-hypoxemic and afebril, no UA or ECG were done. Patient receive IV rocephin, fluids in ED and orders placed for ICU placement due to her sepsis secondary to bilateral pneumonia which appears to be an early parapneumonic effusion sec to possible or suspected aspiration that would be related to her oropharyngeal dysphagia attributed to her alzheimers dementia with the lack of appetite and failure to thrive with anorexia, although on exam lacks evidence of cachexia. She was placed on zoloft by her PCP for depression, however spouse states she has no depression. Compulsive scratching noted by spouse as well and PCP had started her on 2 antibiotics for her bilateral leg excoriations with dried blood to anterior tibial regions. Patient was brought apple sauce at bedside and displayed poor oral intake. - Goals of Care Goals of care determinations: Patient's spuse who is the surrogate medical decision maker has expressed wishes on medical management for her "reversal" causes of illness whcih would include IVF's, IV abx's, parenteral nutrition (not artificial enteral feeds) with no desire for hemodialysis in the event her kidneys would shut down and a DNR with limited IV meds only. In addition, if medical management has been exhausted spouse would want a QOL and consider palliative and or comfort care measures if needed or recommended. - Plan Plan: Currently patient is verbal and can only verbalize a "yes" or "no" answer with no explanation or details to her symptomotology or presentation of illness making her a very poor historian due to her Alzheimer's dementia that appears to be advances at this point. We will attempt to treat her suspected bilateral pneumonia that has a strong component of aspiration as the Right middle and lower lobes bilaterally are involved with associated early parapneumic effusions in the setting of ZANA which will require aggressive IVF resuscitation. Would assess her swallowing capacity at bedside to determine food consistency for textures. ST and RT to be consulted for ancillary services. Duonebs, IV zosyn, pulm toileting, verito, ISS for her dm-2, glycemic control, o2 tx prn, IV lopressor for RVR afib with a CHADS>3, harry continue on coumadin and maintain therapeutic INR. If passes swallow eval would resume all home meds with the exception of Lasix/Losartan due to her ZANA. Pharmacy to consult for titration of coumadin with renal adjustments. Would apply SCD's and avoid heparin for now since already anticoagulated. - Code Status Code Status: Do Not Attempt Resuscitation - Time Spent on Advance Care Planning Time spent on advance care plannin min
--- NOTE | 2018-03-27 14:56 | HISTORY & PHYSICAL EXAMINATION ---
Chief Complaint - Chief Complaint Chief Complaint: Alzheimers demented patient with weakness, decreased PO intake, malaiase History of Present Illness - Admitted From Admitted From:: ED - History Obtained From Records Reviewed: yes History obtained from: Spouse and ED physician Exam Limitations: Patient with advanced alzheimers disease - History of Present Illness HPI Comment/Other: 77 y/o demented patient with mod-severe alzheimers, dm-2, HTN, hyperlipidemia, prior UTI's, chronic afib being anticoagulant on coumadin presents to ED with failure to thrive, decreased oral intake, and severe weakness for which she was unable to get up. Patient typically ambulates via cane and spouse stated today shge was not ambulatory and essentially "stopped eating". In the ED patient was found to be in acute renal failure with a cr 3.8, trop was elevated 0.23 although she was not in RVR afib, but CXR did reveal bilateral pneumonia R>L worse with associated bilateral pleural effusions. Patient was not afebrile but WBC was at 28.1, with normal electrolytes, and plts as well as glucose were not abnormal. Patient was therapeutic with INR 2.2 and lactic acid was only 2.2, uric acid was elevated as well as Tbili to indicate dehydrate status. Patient is a DNR with limited interventions with IV meds, Bipap and reversal causes which was explained to spouse and POLST was signed by him as surrogate due to patient's mod-severe Alzheimer dementia with lack of decisional making capacity. History - Past Medical History Cardiovascular: reports: Congestive heart failure, Hypertension Neuro: reports: Alzhiemer's, Dementia Endocrine/Autoimmune: reports: Type 2 diabetes [employer]: reports: Other (post-SARA) : reports: Renal insuffiency, Other HEENT: reports: None (Per hx on Zoloft ) Psych: reports: Depression, Other Musculoskeletal: reports: Fatigue, Other (weakness ) Derm: reports: Other (Dermatitis with pruritus and excoriations ) MRSA Hx?: No Other Past Medical History: Hyperlipidema, Prior hx e. coli UTI, afib, iron def anemia - Past Surgical History /[employer]: reports: Hysterectomy - Family & Social History Family History: Mother: Alzheimer's Disease () Living arrangement: At home (with spouse primary caregiver ) Living Situation: With spouse/s.o. - Substance History Use: Uses substance without health or social issues: NONE Abuse: Recurrent use of substance despite neg consequences: NONE Dependence: Experiences withdrawal or developed tolerances: NONE - POLST Patient has POLST: Yes POLST Status: DNR (with limited intervention. IV meds only.) Meds/Allgy - Home Medications Home Medications: Ambulatory Orders Medication Instructions Recorded Confirmed Donepezil HCl [Donepezil HCl Odt] 10 mg PO QPM 08/28/17 03/27/18 Furosemide [Lasix] 40 mg PO DAILY 08/28/17 03/27/18 Losartan Potassium 100 mg PO DAILY 08/28/17 03/27/18 Metoprolol Succinate 100 mg PO DAILY 08/28/17 03/27/18 Sertraline HCl 100 mg PO QPM 08/28/17 03/27/18 Warfarin [Coumadin] 5 mg PO SUTUTHSA@0900 08/28/17 03/27/18 dilTIAZem HCl [Diltiazem 24Hr Cd] 360 mg PO DAILY 08/28/17 03/27/18 Duloxetine HCl 30 mg PO DAILY 03/27/18 03/27/18 Metformin HCl 500 mg PO BIDWM 03/27/18 03/27/18 Warfarin Sodium 7.5 mg PO MOWEFR@0900 03/27/18 03/27/18 - Allergies Allergies/Adverse Reactions: Allergies Allergy/AdvReac Type Severity Reaction Status Date / Time No Known Drug Allergies Allergy Verified 08/28/17 19:49 Review of Systems - Constitutional Constitutional: reports: Fatigue, Malaise, Weakness, Poor appetite - Cardiovascular Cariovascular: reports: Irregular heart rate, Decr. exercise tolerance - Respiratory Respiratory: reports: SOB with exertion, Apnea - Musculoskeletal Musculoskeletal: reports: Muscle weakness - Integumentary Integumentary: reports: Rash, Pruritis - Neurological Neurological: reports: General weakness - Psychiatric Psychiatric: reports: Depression - All Other Systems All Other Systems: reports: Reviewed and negative Prior Level of Functionality: Per spouse was walking with cane Exam - Vital Signs Reviewed Vital Signs: Yes Vital Signs: Vital Signs x48h Temp Pulse Resp BP Pulse Ox 03/27/18 14:20 95 16 142/74 H 94 03/27/18 13:18 36.1 C L 78 18 148/75 H 96 03/27/18 11:39 36.2 C L 82 14 136/81 H 95 - Physical Exam General Appearance: positive: No acute distress, Other (pleasantly demented) Eyes Bilateral: positive: Normal inspection, PERRL, EOMI ENT: positive: ENT inspection nml Neck: positive: Nml inspection, Thyroid nml, No JVD, Trachea midline. negative: Thyromegaly, Carotid bruit, Swelling/bruising, Tracheal deviation Respiratory: positive: Chest non-tender, No respiratory distress, Rhonchi (to bases). negative: Wheezes, Rales Cardiovascular: positive: No murmur, No gallop, Irregularly irregular, Systolic murmur, Gallop/S3. negative: Gallop/S4 Peripheral Pulses: positive: 2+ Abdomen: positive: Non-tender, No organomegaly, Nml bowel sounds, No distention. negative: Tenderness, Hepatomegaly, Splenomegaly, Abnml bowel sounds Skin: positive: Warm, Skin rash, Other (excoriations to BLLE) Extremities: positive: Non-tender, Full ROM, Nml appearance, No pedal edema. negative: Calf tenderness, Joint swelling Neurologic/Psychiatric: positive: Motor nml, Sensation nml, Disoriented to place, Depressed mood/affect, Other (Demented) Babinski Reflex: Right: Absent, Left: Absent Conclusion/Plan - Problem List (1) Sepsis Conclusion/Plan: Will be admitted to ICU not requiring pressor support. WBC markedly elevated due to PNA with high suspicion for aspiration type since right lobes affected more than left lobes. LA only 2.2, would monitor wbc trends, initiate "early goal directed" medical tx. Qualifiers: Sepsis type: sepsis due to unspecified organism Qualified Code(s): A41.9 - Sepsis, unspecified organism (2) Pneumonia Conclusion/Plan: PORT/PI score of 139 points which places patient at a risk class 5 with a 27- 29.2% mortality. Would start on renal adjusted IV zosyn anaerobic coverage and broad spectrum coverage in the setting of suspested aspiration with possible OP- dysphagia from advanced Alzheimers dementia. Duonebs, pulmicort, verito, agg pulm toileting, o2tx. Early parapneumonic effusion seen with complicated PNA. In the event patient becomes more hypoxemic then would place on Bipap which spouse ok with NIPPV. Qualifiers: Pneumonia type: aspiration pneumonia Aspiration pneumonia type: unspecified Laterality: bilateral Lung location: lower lobe of lung Qualified Code(s): J69.0 - Pneumonitis due to inhalation of food and vomit (3) ZANA (acute kidney injury) Conclusion/Plan: Multifactorial cause as she was on Lasix/Losartan and was probably taking this with decreased PO fluid intake and a pre-renal azotemia present. Would continue with IVF's to perfuse kidneys, correcting lytes, avoiding nephrotoxic agents, obtaining MARY to eval for stones or hydronephrosis as well as seeing if she has intrinsic causes such as causes for ATN. Patient's baseline cr from [employer] recods are 0.8-1.1. 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 Uric acid elevated and would tx with allopurinol renal adjusted. (4) Failure to thrive in adult Conclusion/Plan: Likely sec to advanced Alzheimers dementia. Would start megace plus remeron and hold zoloft for now as this was being dispensed with a dx of depression per PCP, but spouse states she has NO depression. (5) Demand ischemia of myocardium Conclusion/Plan: Likely sec to RVR afib, Markedly elevated BNP to indicate renal insufficiency and afib with possible underlying left ventricular systolic dysfunction. Do not no patients EF. ECHO to follow. Currently AC with coumadin with a therapeutic INR. Increased circulating tropoinins due to decreased renal clearance which would explain Type 2 LA w/o typical angina symptoms however due to patient's advanced dementia this would be hard to ascertain. NTG prn for chest pain, start ASA, statin. (6) Alzheimer's dementia without behavioral disturbance Conclusion/Plan: Advanced dementia w/o behavioral d/o. Suspected OP-dysphagia and aspiration. ST to follow. Would augment cognitive med mgmt with the addition of namenda. Resume aricept. Qualifiers: Alzheimer's disease onset: unspecified onset Qualified Code(s): G30.9 - Alzheimer's disease, unspecified; F02.80 - Dementia in other diseases classified elsewhere without behavioral disturbance (7) Anorexia Conclusion/Plan: Optimize med mgmt and stimulate appetite with megace+remeron. Dietitian consult, Glucerna cans TID. (8) Oropharyngeal dysphagia Conclusion/Plan: Speech therapy consult to eval for aspiration and recommend food consistency diet. (9) Chronic a-fib Conclusion/Plan: Would continue with AC with coumadin as patient has a CHADVasc of 6 which is 9.7% stroke risk per year. The addition of ASA for antiplatelet benefit in the setting of possible CAD. Unkown EF, ECHO to follow. ECG shows SR @[address]-T wave abnormalities, poor R-wave progression, LVH with sec repol, shor R-R interval. Patient likely not a good candidate for long-term AC either with coumadin or a NOAC as the risk of GI/ICH would be high especially in the setting of an advanced dementia patient. (10) Dehydration, severe Conclusion/Plan: Aggressive IVF resuscitation, correct underlying electrolyte d/o. (11) Diabetes mellitus type 2 in nonobese Conclusion/Plan: HgbA1c to follow although prior was 5.8% on 09/28/17. Place on ISS for glycemic control and avoid IV oe systemic steroids for now. (12) Systolic dysfunction, left ventricle Conclusion/Plan: Patient with a hx of left sided CHF with unknown EF, although I suspect with afib this will be diminished and hard to quantify. Was taking lasix and losartan and now on hold due to severe dehydration and pre-renal azotemia and ZANA. ECHO to follow, BNP markedly elevated at >4K. Contraindication for aggressive diuresis due to acute renal insufficiency. - Lab Results Fish Bones: 03/27/18 12:30 03/27/18 12:30 - Diagnostic Imaging Results Diagnostic Imaging Results: positive: Final report reviewed (CXR) - Other Other Results/Comments: Total Critical care time: 30 minutes Core Measures - Anticipated LOS I expect patient to be DC'd or transferred within 96 hours.: No - Issues Hospital Issues and Management Plan: Patient will require palliative care consult and may have prolonged hospitalization due to ZANA, sepsis with early parapneumic effusion. - DVT/VTE - Prophylaxis VTE/DVT Device ordered at admit?: Yes VTE/DVT Prophylaxis med ordered at admit?: No Not Ordered - Medical Reason: Not indicated (Already on coumadin)
[2018-03-27] MEDS ORDERED: ASPIRIN CHEW 81 MG TABLET PO SCH (15:36)
[2018-03-27] MEDS ORDERED: METOPROLOL 5 MG/5 ML VIAL IVP PRN (15:37)
[2018-03-27] MEDS ORDERED: NITROGLYCERIN SL 0.4 MG TABLET SL PRN (15:38)
--- NOTE | 2018-03-27 16:09 | Ultrasound Report ---
Reason: ZANA eval for hydro/stones Procedure Date: 03/27/2018 Accession Number: [id number] / [id number] Procedure: US - Retroperitoneal CPT Code: FULL RESULT: EXAM: RENAL ULTRASOUND EXAM DATE: 03/27/2018 03:15 PM. CLINICAL HISTORY: ZANA eval for hydro/stones. COMPARISON: None. TECHNIQUE: Real-time scanning was performed with static images obtained. FINDINGS: Right Kidney: 9.5 cm. Normal echotexture with no stones, contour-deforming masses, or hydronephrosis. There is a simple appearing cyst in the inferior pole of the right kidney measuring up to 1.4 cm. Left Kidney: 9.8 cm. Normal echotexture with no stones, contour-deforming masses, or hydronephrosis. There is a simple appearing cyst in the inferior pole of left kidney measuring up to 3.9 cm. Bladder: The right bladder jet is not visualized. The left bladder jet is present. The prevoid bladder volume was 94 cc. Other: None. IMPRESSION: No hydronephrosis or renal calculus. RADIA
[2018-03-27 16:19] LABS: HB2 TOTAL 15.1 g/dL; HEMOGLOBIN A1C 0.68 g/dL; HEMOGLOBIN A1C % 6.3 % (4.6-6.2)
[2018-03-27] MEDS: DEXTROSE 5%-0.9% NACL 1,000 ML IV SCH (16:30)
[2018-03-27] MEDS: IPRATROPIUM/ALBUTEROL 3 ML NEB INH PRN ×2 (16:45→19:15)
[2018-03-27] MEDS: INSULIN ASPART 300 UNIT/3 ML PEN SUBQ SCH ×2 (17:00→20:30)
[2018-03-27] MEDS: SODIUM CHLORIDE FLUSH 0.9% 10 ML SYRINGE IVP SCH (17:10)
[2018-03-27] MEDS: NYSTATIN POWDER 15 GM TOP SCH ×2 (17:30→20:31)
[2018-03-27] MEDS: BUDESONIDE 0.5 MG/2 ML NEB INH SCH (19:15)
[2018-03-27] MEDS: ATORVASTATIN 40 MG TABLET PO SCH (20:30)
[2018-03-27] MEDS: MEMANTINE 5 MG TABLET PO SCH (20:30)
[2018-03-27] MEDS: DONEPEZIL 5 MG TABLET PO SCH (20:31)
[2018-03-27] MEDS: TRIAMCINOLONE 0.1% CREAM 15 GM TUBE TOP SCH (20:31)
[2018-03-27] MEDS ORDERED: HEPARIN 5,000 UNIT/ML VIAL SUBQ SCH (21:00)
[2018-03-27] MEDS: PIPERACILLIN/TAZOBACTAM 2.25 GM in SODIUM CHLORIDE 0.9% MINIBAG 100 ML IV SCH (21:36)
[2018-03-27] MEDS: MIRTAZAPINE 15 MG TABLET PO SCH (21:36)
[2018-03-28] MEDS: DEXTROSE 5%-0.9% NACL 1,000 ML IV SCH ×3 (00:10→10:00)
[2018-03-28] MEDS: ZINC OXIDE 20% OINT 28.35 GM TUBE TOP PRN (00:31)
[2018-03-28] MEDS: SODIUM CHLORIDE FLUSH 0.9% 10 ML SYRINGE IVP SCH ×3 (01:40→17:46)
[2018-03-28] MEDS: PIPERACILLIN/TAZOBACTAM 2.25 GM in SODIUM CHLORIDE 0.9% MINIBAG 100 ML IV SCH ×4 (03:33→21:49)
[2018-03-28 04:06] LABS: ALBUMIN 2.4 g/dL (3.2-5.5); ALBUMIN/GLOBULIN RATIO 0.7 (1.0-2.2); BILIRUBIN,TOTAL 0.9 mg/dL (0.2-1.0); CALCIUM 7.4 mg/dL (8.5-10.3); CREATININE 3.6 mg/dL (0.4-1.0); TOTAL PROTEIN 5.7 g/dL (6.7-8.2)
[2018-03-28] MEDS: PANTOPRAZOLE 40 MG VIAL IVP SCH (06:17)
[2018-03-28] MEDS: SODIUM CHLORIDE FLUSH 0.9% 10 ML SYRINGE IVP PRN (06:17)
[2018-03-28 07:01] LABS: BASOPHILS % (AUTO) 0.3 %; EOSINOPHILS % (AUTO) 0.1 %; HGB - HEMOGLOBIN 10.8 g/dL (12.0-16.0); LYMPHOCYTES # (AUTO) 0.7 10^3/uL (1.5-3.5); LYMPHOCYTES % (AUTO) 4.4 %; MEAN CORPUSCULAR HEMOGLOBIN 26.2 pg (27.0-31.0); MEAN CORPUSCULAR HGB CONC 33.2 g/dL (32.0-36.0); MEAN CORPUSCULAR VOLUME 78.9 fL (81.0-99.0); MEAN PLATELET VOLUME 8.7 fL (7.9-10.8); MONOCYTES # (AUTO) 0.9 10^3/uL (0.0-1.0); MONOCYTES % (AUTO) 5.7 %; NEUTROPHILS # (AUTO) 14.3 10^3/uL (1.5-6.6); NEUTROPHILS % (AUTO) 89.5 %; PLT - PLATELET COUNT 298 10^3/uL (130-450); RED BLOOD COUNT 4.12 10^6/uL (4.20-5.40); RED CELL DISTRIBUTION WIDTH 17.2 % (12.0-15.0)
[2018-03-28] MEDS: INSULIN ASPART 300 UNIT/3 ML PEN SUBQ SCH ×4 (07:45→21:04)
[2018-03-28] MEDS: TRIAMCINOLONE 0.1% CREAM 15 GM TUBE TOP SCH ×2 (08:09→21:22)
[2018-03-28] MEDS: NYSTATIN POWDER 15 GM TOP SCH ×2 (08:09→21:22)
[2018-03-28] MEDS: METOPROLOL SUCCINATE 50 MG TABLET PO SCH (08:30)
[2018-03-28] MEDS: diltiaZEM CD 120 MG CAPSULE PO SCH (08:33)
[2018-03-28] MEDS: MEMANTINE 5 MG TABLET PO SCH ×2 (08:35→21:03)
[2018-03-28] MEDS: POLYETHYLENE GLYCOL 3350 17 GM PACKET PO SCH (08:36)
[2018-03-28] MEDS: MEGESTROL 400 MG/10 ML UDC PO SCH (08:44)
[2018-03-28] MEDS ORDERED: ALLOPURINOL 100 MG TABLET PO SCH (09:00)
[2018-03-28] MEDS: WARFARIN 5 MG TABLET PO SCH (10:00)
[2018-03-28 11:10] LABS: BILIRUBIN,URINE NEGATIVE (NEGATIVE); GLUCOSE, URINE (UA) NEGATIVE (NEGATIVE); KETONES,URINE (UA) NEGATIVE (NEGATIVE); LEUKOCYTE ESTERASE, URINE MODERATE (NEGATIVE); NITRITE,URINE NEGATIVE (NEGATIVE); OCCULT BLOOD,URINE LARGE (NEGATIVE); PROTEIN,URINE NEGATIVE (NEGATIVE); UROBILINOGEN,URINE 0.2 (NORMAL) E.U./dL (NORMAL)
[2018-03-28 11:12] LABS: CLARITY,URINE SL. CLOUDY (CLEAR)
[2018-03-28 11:21] LABS: BACTERIA,URINE Few /HPF (None Seen); SQUAMOUS EPITHELIAL CELL,UR MOD Squamous (<= Few)
--- NOTE | 2018-03-28 11:32 | PROVIDER PROGRESS NOTE ---
Subjective - Prog Note Date Prog Note Date: 03/28/18 Prog Note Time: 11:30 - Subjective Pt reports feeling: Improved (Pt states she feels better. Appetite is improved. Denies pain, denies sob.) Current Medications - Current Medications Current Medications: Active Medications Albuterol/Ipratropium (Duoneb) 3 ml INH RTQ4H PRN PRN Reason: Wheezing Last Admin: 03/27/18 19:15 Dose: 3 ml Allopurinol (Zyloprim) 100 mg PO DAILY [facility] Last Admin: 03/28/18 08:33 Dose: 100 mg Atorvastatin Calcium (Lipitor) 20 mg PO QPM [facility] Last Admin: 03/27/18 20:30 Dose: 20 mg Budesonide (Pulmicort) 0.5 mg INH RTBID [facility] Last Admin: 03/27/18 19:15 Dose: 0.5 mg Diltiazem HCl (Cardizem Cd) 360 mg PO DAILY [facility] Last Admin: 03/28/18 08:33 Dose: 360 mg Donepezil HCl (Aricept) 10 mg PO QPM [facility] Last Admin: 03/27/18 20:31 Dose: 10 mg Dextrose/Sodium Chloride (D5ns) 1,000 mls @ 125 mls/hr IV .Q8H [facility] Last Infusion: 03/28/18 11:00 Dose: 0 mls/hr Piperacillin Sod/Tazobactam (Sod 2.25 gm/ Sodium Chloride) 100 mls @ 200 mls/hr IV Q6H [facility] Last Infusion: 03/28/18 10:45 Dose: Infused Insulin Aspart (Novolog) 1 - 5 unit SUBQ 0800,1200,1700,2100 [facility]; Protocol Last Admin: 03/28/18 07:45 Dose: Not Given Megestrol Acetate (Megace) 800 mg PO DAILY [facility] Last Admin: 03/28/18 08:44 Dose: 800 mg Memantine (Namenda) 5 mg PO BID [facility] Last Admin: 03/28/18 08:35 Dose: 5 mg Metoprolol Succinate (Toprol Xl) 100 mg PO DAILY [facility] Last Admin: 03/28/18 08:30 Dose: 100 mg Metoprolol Tartrate (Lopressor Inj) 5 mg IVP Q4HR PRN PRN Reason: HR>120 or SBP>160 Mirtazapine (Remeron) 7.5 mg PO QPM [facility] Last Admin: 03/27/18 21:36 Dose: 7.5 mg Morphine Sulfate (Morphine (Carpuject)) 1 mg IVP Q2HR PRN PRN Reason: Pain 8 to 10 Multi-Ingredient Ointment (Zinc Oxide) 1 applic TOP PRN PRN PRN Reason: Skin Care Last Admin: 03/28/18 00:31 Dose: 1 applic Nitroglycerin (Nitrostat) 0 mg SL PRN PRN PRN Reason: Chest Pain Nystatin (Nystop) 1 applic TOP BID [facility] Last Admin: 03/28/18 08:09 Dose: 1 applic Ondansetron HCl (Zofran Inj) 4 mg IVP Q6HR PRN PRN Reason: Nausea / Vomiting Ondansetron HCl (Zofran Odt) 4 mg TL Q6HR PRN PRN Reason: Nausea / Vomiting Pantoprazole Sodium (Protonix) 40 mg IVP QDAC [facility] Last Admin: 03/28/18 06:17 Dose: 40 mg Polyethylene Glycol (Miralax) 17 gm PO DAILY [facility] Last Admin: 03/28/18 08:36 Dose: Not Given Sodium Chloride (Normal Saline Flush 0.9%) 10 ml IVP PRN PRN PRN Reason: NEEDED PER PROVIDER ORDERS Last Admin: 03/28/18 06:17 Dose: 10 ml Sodium Chloride (Normal Saline Flush 0.9%) 10 ml IVP 0100,0900,1700 [facility] Last Admin: 03/28/18 08:37 Dose: 10 ml Triamcinolone Acetonide (Kenalog 0.1% Cream) 1 applic TOP BID [facility] Last Admin: 03/28/18 08:09 Dose: 1 applic Warfarin Sodium (Coumadin) 5 mg PO SUTUTHSA@0900 [facility] Last Admin: 03/28/18 10:00 Dose: 5 mg Warfarin Sodium (Coumadin) 7.5 mg PO MOWEFR@0900 [facility] Donepezil HCl [Donepezil HCl Odt] 10 mg PO QPM 08/28/17 Furosemide [Lasix] 40 mg PO DAILY 08/28/17 Losartan Potassium 100 mg PO DAILY 08/28/17 Metoprolol Succinate 100 mg PO DAILY 08/28/17 Sertraline HCl 100 mg PO QPM 08/28/17 Warfarin [Coumadin] 5 mg PO SUTUTHSA@0900 08/28/17 dilTIAZem HCl [Diltiazem 24Hr Cd] 360 mg PO DAILY 08/28/17 Duloxetine HCl 30 mg PO DAILY 03/27/18 Metformin HCl 500 mg PO BIDWM 03/27/18 Warfarin Sodium 7.5 mg PO MOWEFR@0900 03/27/18 Objective - Vital Signs/Intake & Output Reviewed Vital Signs: Yes Vital Signs: Vital Signs x48h Temp Pulse Pulse Resp BP Pulse Ox 03/28/18 11:00 79 21 125/68 96 03/28/18 10:40 88 24 03/28/18 07:46 36.7 C 91 25 H 162/74 H 96 03/28/18 07:00 91 22 142/79 H 95 03/28/18 06:00 94 24 154/83 H 94 03/28/18 05:00 92 20 164/75 H 95 03/28/18 04:00 37.1 C 88 23 150/83 H 97 Intake & Output: Intake & Output 03/25/18 03/26/18 03/27/18 03/28/18 23:59 23:59 23:59 23:59 Intake Total 2362.5 2800.000 Balance 2362.5 2800.000 - Objective General Appearance: positive: No acute distress, Alert Eyes Bilateral: positive: Normal inspection, EOMI, Conjunctivae nml ENT: positive: ENT inspection nml Neck: positive: Thyroid nml Respiratory: positive: No respiratory distress, Breath sounds nml (No wheezes, rhonhi or rales.) Cardiovascular: positive: Regular rate & rhythm, No murmur, No gallop Abdomen: positive: Non-tender, No organomegaly, Nml bowel sounds, No distention Skin: positive: Other (Bilateral LE with mild erythem and few exocoriations and ulcerations, c/w venous stasis and vascular insuffeciency changes) Extremities: positive: Non-tender, No pedal edema Neurologic/Psychiatric: positive: Motor nml, Sensation nml, Mood/affect nml, Disoriented to time - Lab Results Fish Bones: 03/28/18 03:45 03/28/18 03:45 Other Labs: Lab Results x24hrs 03/28/18 03/28/18 03/28/18 Range/Units 10:45 03:45 03:45 WBC 16.0 H (4.8-10.8) x10^3/uL RBC 4.12 L (4.20-5.40) 10^6/uL Hgb 10.8 L (12.0-16.0) g/dL Hct 32.5 L (37.0-47.0) % MCV 78.9 L (81.0-99.0) fL MCH 26.2 L (27.0-31.0) pg MCHC 33.2 (32.0-36.0) g/dL RDW 17.2 H (12.0-15.0) % Plt Count 298 (130-450) 10^3/uL MPV 8.7 (7.9-10.8) fL Neut # (Auto) 14.3 H (1.5-6.6) 10^3/uL Lymph # (Auto) 0.7 L (1.5-3.5) 10^3/uL [place] # (Auto) 0.9 (0.0-1.0) 10^3/uL Eos # (Auto) 0.0 (0.0-0.7) 10^3/uL Baso # (Auto) 0.0 (0.0-0.1) 10^3/uL Absolute Nucleated RBC 0.02 x10^3/uL Band Neuts % (Manual) Abnorm Lymph % (Manual) Nucleated RBC % 0.1 /100WBC Neutrophils # (Manual) Lymphocytes # (Manual) Monocytes # (Manual) Eosinophils # (Manual) Basophils # (Manual) Differential Comment Manual Slide Review Platelet Estimate (NORMAL) Platelet Morphology (NORMAL) RBC Morph Micro Appear (NORMAL) PT (9.9-12.6) secs INR (0.8-1.2) Sodium 137 (135-145) mmol/L Potassium 3.6 (3.5-5.0) mmol/L Chloride 103 (101-111) mmol/L Carbon Dioxide 21 (21-32) mmol/L Anion Gap 13.0 (6-13) BUN 70 H (6-20) mg/dL Creatinine 3.6 H (0.4-1.0) mg/dL Estimated GFR (MDRD) 12 L (>89) Glucose 117 H (70-100) mg/dL Glycated Hemoglobin (4.6-6.2) % Estim Average Glucose (70-100) Lactic Acid (0.5-2.2) mmol/L Uric Acid (2.6-7.2) mg/dL Calcium 7.4 L (8.5-10.3) mg/dL Magnesium (1.7-2.8) mg/dL Total Bilirubin 0.9 (0.2-1.0) mg/dL AST 43 H (10-42) IU/L ALT 44 (10-60) IU/L Alkaline Phosphatase 71 (42-121) IU/L Total Creatine Kinase (22-269) IU/L Troponin I (<0.49) ng/mL B-Natriuretic Peptide (5-100) pg/mL Total Protein 5.7 L (6.7-8.2) g/dL Albumin 2.4 L (3.2-5.5) g/dL Globulin 3.3 (2.1-4.2) g/dL Albumin/Globulin Ratio 0.7 L (1.0-2.2) Lipase (22-51) U/L Urine Color YELLOW Urine Clarity SL. CLOUDY (CLEAR) Urine pH 6.0 (5.0-7.5) PH Ur Specific [place] 1.015 (1.002-1.030) Urine Protein NEGATIVE (NEGATIVE) mg/dL Urine Glucose (UA) NEGATIVE (NEGATIVE) mg/dL Urine Ketones NEGATIVE (NEGATIVE) mg/dL Urine Occult Blood LARGE H (NEGATIVE) Urine Nitrite NEGATIVE (NEGATIVE) Urine Bilirubin NEGATIVE (NEGATIVE) Urine Urobilinogen 0.2 (NORMAL) (NORMAL) E.U./dL Ur Leukocyte Esterase MODERATE H (NEGATIVE) Urine RBC 6-10 H (0-5) /HPF Urine WBC 11-25 H (0-5) /HPF Ur Squamous Epith Cells MOD Squamous H (<= Few) Urine Bacteria Few (None Seen) /HPF Ur Microscopic Review INDICATED Urine Culture Comments NOT INDICATED 03/27/18 03/27/18 03/27/18 Range/Units 16:03 12:45 12:30 WBC (4.8-10.8) x10^3/uL RBC (4.20-5.40) 10^6/uL Hgb (12.0-16.0) g/dL Hct (37.0-47.0) % MCV (81.0-99.0) fL MCH (27.0-31.0) pg MCHC (32.0-36.0) g/dL RDW (12.0-15.0) % Plt Count (130-450) 10^3/uL MPV (7.9-10.8) fL Neut # (Auto) (1.5-6.6) 10^3/uL Lymph # (Auto) (1.5-3.5) 10^3/uL [place] # (Auto) (0.0-1.0) 10^3/uL Eos # (Auto) (0.0-0.7) 10^3/uL Baso # (Auto) (0.0-0.1) 10^3/uL Absolute Nucleated RBC x10^3/uL Band Neuts % (Manual) Abnorm Lymph % (Manual) Nucleated RBC % /100WBC Neutrophils # (Manual) Lymphocytes # (Manual) Monocytes # (Manual) Eosinophils # (Manual) Basophils # (Manual) Differential Comment Manual Slide Review Platelet Estimate (NORMAL) Platelet Morphology (NORMAL) RBC Morph Micro Appear (NORMAL) PT (9.9-12.6) secs INR (0.8-1.2) Sodium (135-145) mmol/L Potassium (3.5-5.0) mmol/L Chloride (101-111) mmol/L Carbon Dioxide (21-32) mmol/L Anion Gap (6-13) BUN (6-20) mg/dL Creatinine (0.4-1.0) mg/dL Estimated GFR (MDRD) (>89) Glucose (70-100) mg/dL Glycated Hemoglobin 6.3 H (4.6-6.2) % Estim Average Glucose 134 H (70-100) Lactic Acid 1.5 2.2 (0.5-2.2) mmol/L Uric Acid (2.6-7.2) mg/dL Calcium (8.5-10.3) mg/dL Magnesium (1.7-2.8) mg/dL Total Bilirubin (0.2-1.0) mg/dL AST (10-42) IU/L ALT (10-60) IU/L Alkaline Phosphatase (42-121) IU/L Total Creatine Kinase (22-269) IU/L Troponin I (<0.49) ng/mL B-Natriuretic Peptide (5-100) pg/mL Total Protein (6.7-8.2) g/dL Albumin (3.2-5.5) g/dL Globulin (2.1-4.2) g/dL Albumin/Globulin Ratio (1.0-2.2) Lipase (22-51) U/L Urine Color Urine Clarity (CLEAR) Urine pH (5.0-7.5) PH Ur Specific [place] (1.002-1.030) Urine Protein (NEGATIVE) mg/dL Urine Glucose (UA) (NEGATIVE) mg/dL Urine Ketones (NEGATIVE) mg/dL Urine Occult Blood (NEGATIVE) Urine Nitrite (NEGATIVE) Urine Bilirubin (NEGATIVE) Urine Urobilinogen (NORMAL) E.U./dL Ur Leukocyte Esterase (NEGATIVE) Urine RBC (0-5) /HPF Urine WBC (0-5) /HPF Ur Squamous Epith Cells (<= Few) Urine Bacteria (None Seen) /HPF Ur Microscopic Review Urine Culture Comments 03/27/18 03/27/18 03/27/18 Range/Units 12:30 12:30 12:30 WBC (4.8-10.8) x10^3/uL RBC (4.20-5.40) 10^6/uL Hgb (12.0-16.0) g/dL Hct (37.0-47.0) % MCV (81.0-99.0) fL MCH (27.0-31.0) pg MCHC (32.0-36.0) g/dL RDW (12.0-15.0) % Plt Count (130-450) 10^3/uL MPV (7.9-10.8) fL Neut # (Auto) (1.5-6.6) 10^3/uL Lymph # (Auto) (1.5-3.5) 10^3/uL [place] # (Auto) (0.0-1.0) 10^3/uL Eos # (Auto) (0.0-0.7) 10^3/uL Baso # (Auto) (0.0-0.1) 10^3/uL Absolute Nucleated RBC x10^3/uL Band Neuts % (Manual) Abnorm Lymph % (Manual) Nucleated RBC % /100WBC Neutrophils # (Manual) Lymphocytes # (Manual) Monocytes # (Manual) Eosinophils # (Manual) Basophils # (Manual) Differential Comment Manual Slide Review Platelet Estimate (NORMAL) Platelet Morphology (NORMAL) RBC Morph Micro Appear (NORMAL) PT (9.9-12.6) secs INR (0.8-1.2) Sodium (135-145) mmol/L Potassium (3.5-5.0) mmol/L Chloride (101-111) mmol/L Carbon Dioxide (21-32) mmol/L Anion Gap (6-13) BUN (6-20) mg/dL Creatinine (0.4-1.0) mg/dL Estimated GFR (MDRD) (>89) Glucose (70-100) mg/dL Glycated Hemoglobin (4.6-6.2) % Estim Average Glucose (70-100) Lactic Acid (0.5-2.2) mmol/L Uric Acid 9.9 H (2.6-7.2) mg/dL Calcium (8.5-10.3) mg/dL Magnesium 1.9 (1.7-2.8) mg/dL Total Bilirubin (0.2-1.0) mg/dL AST (10-42) IU/L ALT (10-60) IU/L Alkaline Phosphatase (42-121) IU/L Total Creatine Kinase 342 H (22-269) IU/L Troponin I (<0.49) ng/mL B-Natriuretic Peptide 4606 H (5-100) pg/mL Total Protein (6.7-8.2) g/dL Albumin (3.2-5.5) g/dL Globulin (2.1-4.2) g/dL Albumin/Globulin Ratio (1.0-2.2) Lipase (22-51) U/L Urine Color Urine Clarity (CLEAR) Urine pH (5.0-7.5) PH Ur Specific [place] (1.002-1.030) Urine Protein (NEGATIVE) mg/dL Urine Glucose (UA) (NEGATIVE) mg/dL Urine Ketones (NEGATIVE) mg/dL Urine Occult Blood (NEGATIVE) Urine Nitrite (NEGATIVE) Urine Bilirubin (NEGATIVE) Urine Urobilinogen (NORMAL) E.U./dL Ur Leukocyte Esterase (NEGATIVE) Urine RBC (0-5) /HPF Urine WBC (0-5) /HPF Ur Squamous Epith Cells (<= Few) Urine Bacteria (None Seen) /HPF Ur Microscopic Review Urine Culture Comments 03/27/18 03/27/18 03/27/18 Range/Units 12:30 12:30 12:30 WBC (4.8-10.8) x10^3/uL RBC (4.20-5.40) 10^6/uL Hgb (12.0-16.0) g/dL Hct (37.0-47.0) % MCV (81.0-99.0) fL MCH (27.0-31.0) pg MCHC (32.0-36.0) g/dL RDW (12.0-15.0) % Plt Count (130-450) 10^3/uL MPV (7.9-10.8) fL Neut # (Auto) (1.5-6.6) 10^3/uL Lymph # (Auto) (1.5-3.5) 10^3/uL [place] # (Auto) (0.0-1.0) 10^3/uL Eos # (Auto) (0.0-0.7) 10^3/uL Baso # (Auto) (0.0-0.1) 10^3/uL Absolute Nucleated RBC x10^3/uL Band Neuts % (Manual) Abnorm Lymph % (Manual) Nucleated RBC % /100WBC Neutrophils # (Manual) Lymphocytes # (Manual) Monocytes # (Manual) Eosinophils # (Manual) Basophils # (Manual) Differential Comment Manual Slide Review Platelet Estimate (NORMAL) Platelet Morphology (NORMAL) RBC Morph Micro Appear (NORMAL) PT 23.9 H (9.9-12.6) secs INR 2.2 H (0.8-1.2) Sodium 136 (135-145) mmol/L Potassium 4.1 (3.5-5.0) mmol/L Chloride 98 L (101-111) mmol/L Carbon Dioxide 23 (21-32) mmol/L Anion Gap 15.0 H (6-13) BUN 74 H (6-20) mg/dL Creatinine 3.8 H (0.4-1.0) mg/dL Estimated GFR (MDRD) 11 L (>89) Glucose 133 H (70-100) mg/dL Glycated Hemoglobin (4.6-6.2) % Estim Average Glucose (70-100) Lactic Acid (0.5-2.2) mmol/L Uric Acid (2.6-7.2) mg/dL Calcium 8.5 (8.5-10.3) mg/dL Magnesium (1.7-2.8) mg/dL Total Bilirubin 1.5 H (0.2-1.0) mg/dL AST 53 H (10-42) IU/L ALT 59 (10-60) IU/L Alkaline Phosphatase 94 (42-121) IU/L Total Creatine Kinase (22-269) IU/L Troponin I 0.23 (<0.49) ng/mL B-Natriuretic Peptide (5-100) pg/mL Total Protein 7.4 (6.7-8.2) g/dL Albumin 3.1 L (3.2-5.5) g/dL Globulin 4.3 H (2.1-4.2) g/dL Albumin/Globulin Ratio 0.7 L (1.0-2.2) Lipase 20 L (22-51) U/L Urine Color Urine Clarity (CLEAR) Urine pH (5.0-7.5) PH Ur Specific [place] (1.002-1.030) Urine Protein (NEGATIVE) mg/dL Urine Glucose (UA) (NEGATIVE) mg/dL Urine Ketones (NEGATIVE) mg/dL Urine Occult Blood (NEGATIVE) Urine Nitrite (NEGATIVE) Urine Bilirubin (NEGATIVE) Urine Urobilinogen (NORMAL) E.U./dL Ur Leukocyte Esterase (NEGATIVE) Urine RBC (0-5) /HPF Urine WBC (0-5) /HPF Ur Squamous Epith Cells (<= Few) Urine Bacteria (None Seen) /HPF Ur Microscopic Review Urine Culture Comments 03/27/18 Range/Units 12:30 WBC 28.1 H (4.8-10.8) x10^3/uL RBC 4.91 (4.20-5.40) 10^6/uL Hgb 12.4 (12.0-16.0) g/dL Hct 38.5 (37.0-47.0) % MCV 78.4 L (81.0-99.0) fL MCH 25.3 L (27.0-31.0) pg MCHC 32.3 (32.0-36.0) g/dL RDW 16.9 H (12.0-15.0) % Plt Count 329 (130-450) 10^3/uL MPV 8.2 (7.9-10.8) fL Neut # (Auto) 26.2 H (1.5-6.6) 10^3/uL Lymph # (Auto) 0.7 L (1.5-3.5) 10^3/uL [place] # (Auto) 1.2 H (0.0-1.0) 10^3/uL Eos # (Auto) 0.0 (0.0-0.7) 10^3/uL Baso # (Auto) 0.0 (0.0-0.1) 10^3/uL Absolute Nucleated RBC 0.01 x10^3/uL Band Neuts % (Manual) Not Reportable Abnorm Lymph % (Manual) Not Reportable Nucleated RBC % 0.0 /100WBC Neutrophils # (Manual) Not Reportable Lymphocytes # (Manual) Not Reportable Monocytes # (Manual) Not Reportable Eosinophils # (Manual) Not Reportable Basophils # (Manual) Not Reportable Differential Comment MANUAL=AUTO DIFF Manual Slide Review Indicated Platelet Estimate NORMAL (130-450,000) (NORMAL) Platelet Morphology NORMAL APPEARANCE (NORMAL) RBC Morph Micro Appear NORMAL APPEARANCE (NORMAL) PT (9.9-12.6) secs INR (0.8-1.2) Sodium (135-145) mmol/L Potassium (3.5-5.0) mmol/L Chloride (101-111) mmol/L Carbon Dioxide (21-32) mmol/L Anion Gap (6-13) BUN (6-20) mg/dL Creatinine (0.4-1.0) mg/dL Estimated GFR (MDRD) (>89) Glucose (70-100) mg/dL Glycated Hemoglobin (4.6-6.2) % Estim Average Glucose (70-100) Lactic Acid (0.5-2.2) mmol/L Uric Acid (2.6-7.2) mg/dL Calcium (8.5-10.3) mg/dL Magnesium (1.7-2.8) mg/dL Total Bilirubin (0.2-1.0) mg/dL AST (10-42) IU/L ALT (10-60) IU/L Alkaline Phosphatase (42-121) IU/L Total Creatine Kinase (22-269) IU/L Troponin I (<0.49) ng/mL B-Natriuretic Peptide (5-100) pg/mL Total Protein (6.7-8.2) g/dL Albumin (3.2-5.5) g/dL Globulin (2.1-4.2) g/dL Albumin/Globulin Ratio (1.0-2.2) Lipase (22-51) U/L Urine Color Urine Clarity (CLEAR) Urine pH (5.0-7.5) PH Ur Specific [place] (1.002-1.030) Urine Protein (NEGATIVE) mg/dL Urine Glucose (UA) (NEGATIVE) mg/dL Urine Ketones (NEGATIVE) mg/dL Urine Occult Blood (NEGATIVE) Urine Nitrite (NEGATIVE) Urine Bilirubin (NEGATIVE) Urine Urobilinogen (NORMAL) E.U./dL Ur Leukocyte Esterase (NEGATIVE) Urine RBC (0-5) /HPF Urine WBC (0-5) /HPF Ur Squamous Epith Cells (<= Few) Urine Bacteria (None Seen) /HPF Ur Microscopic Review Urine Culture Comments Abnormal Lab Results 03/27/18 03/27/18 03/27/18 12:30 12:30 12:30 WBC 28.1 x10^3/uL H x10^3/uL (4.8-10.8) RBC Hgb Hct MCV 78.4 fL L fL (81.0-99.0) MCH 25.3 pg L pg (27.0-31.0) RDW 16.9 % H % (12.0-15.0) Neut # (Auto) 26.2 10^3/uL H 10^3/uL (1.5-6.6) Lymph # (Auto) 0.7 10^3/uL L 10^3/uL (1.5-3.5) [place] # (Auto) 1.2 10^3/uL H 10^3/uL (0.0-1.0) PT 23.9 secs H secs (9.9-12.6) INR 2.2 H (0.8-1.2) Chloride 98 mmol/L L mmol/L (101-111) Anion Gap 15.0 H (6-13) BUN 74 mg/dL H mg/dL (6-20) Creatinine 3.8 mg/dL H mg/dL (0.4-1.0) Estimated GFR (MDRD) 11 L (>89) Glucose 133 mg/dL H mg/dL (70-100) Glycated Hemoglobin Estim Average Glucose Uric Acid Calcium Total Bilirubin 1.5 mg/dL H mg/dL (0.2-1.0) AST 53 IU/L H IU/L (10-42) Total Creatine Kinase B-Natriuretic Peptide Total Protein Albumin 3.1 g/dL L g/dL (3.2-5.5) Globulin 4.3 g/dL H g/dL (2.1-4.2) Albumin/Globulin Ratio 0.7 L (1.0-2.2) Lipase 20 U/L L U/L (22-51) Urine Occult Blood Ur Leukocyte Esterase Urine RBC Urine WBC Ur Squamous Epith Cells 03/27/18 03/27/18 03/27/18 12:30 12:30 12:30 WBC RBC Hgb Hct MCV MCH RDW Neut # (Auto) Lymph # (Auto) [place] # (Auto) PT INR Chloride Anion Gap BUN Creatinine Estimated GFR (MDRD) Glucose Glycated Hemoglobin 6.3 % H % (4.6-6.2) Estim Average Glucose 134 H (70-100) Uric Acid 9.9 mg/dL H mg/dL (2.6-7.2) Calcium Total Bilirubin AST Total Creatine Kinase 342 IU/L H IU/L (22-269) B-Natriuretic Peptide 4606 pg/mL H pg/mL (5-100) Total Protein Albumin Globulin Albumin/Globulin Ratio Lipase Urine Occult Blood Ur Leukocyte Esterase Urine RBC Urine WBC Ur Squamous Epith Cells 03/28/18 03/28/18 03/28/18 03:45 03:45 10:45 WBC 16.0 x10^3/uL H x10^3/uL (4.8-10.8) RBC 4.12 10^6/uL L 10^6/uL (4.20-5.40) Hgb 10.8 g/dL L g/dL (12.0-16.0) Hct 32.5 % L % (37.0-47.0) MCV 78.9 fL L fL (81.0-99.0) MCH 26.2 pg L pg (27.0-31.0) RDW 17.2 % H % (12.0-15.0) Neut # (Auto) 14.3 10^3/uL H 10^3/uL (1.5-6.6) Lymph # (Auto) 0.7 10^3/uL L 10^3/uL (1.5-3.5) [place] # (Auto) PT INR Chloride Anion Gap BUN 70 mg/dL H mg/dL (6-20) Creatinine 3.6 mg/dL H mg/dL (0.4-1.0) Estimated GFR (MDRD) 12 L (>89) Glucose 117 mg/dL H mg/dL (70-100) Glycated Hemoglobin Estim Average Glucose Uric Acid Calcium 7.4 mg/dL L mg/dL (8.5-10.3) Total Bilirubin AST 43 IU/L H IU/L (10-42) Total Creatine Kinase B-Natriuretic Peptide Total Protein 5.7 g/dL L g/dL (6.7-8.2) Albumin 2.4 g/dL L g/dL (3.2-5.5) Globulin Albumin/Globulin Ratio 0.7 L (1.0-2.2) Lipase Urine Occult Blood LARGE H (NEGATIVE) Ur Leukocyte Esterase MODERATE H (NEGATIVE) Urine RBC 6-10 /HPF H /HPF (0-5) Urine WBC 11-25 /HPF H /HPF (0-5) Ur Squamous Epith Cells MOD Squamous H (<= Few) - Diagnostic Imaging Diagnostic Imaging Results: positive: Prelim report reviewed (Echocardio gram suggesitve of diminshed EF, systolic CHF), Final report reviewed (Normal Renal U/S) ABX Reporting Has patient been on IV antibiotics over the past 48 hours?: Yes Assessment/Plan - Problem List (1) ZANA (acute kidney injury) Impression: ZANA Likely ATN 2/2 dehydration, 2/2 Alzheimer's causing decreased PO intake for past few days, as reported by reliable historian . Has been on IVF 125 ml/hr for nearly 24 hr since admit, but given CHF, and elevated BNP, with now improved PO intake, will try to d/c IVF and watch closely, as Cr still above 3. Urine output still minimal and will follow UA results - I suspect a UTI, and pt is on empiric Zosyn. Check Cr with labs daily, if not improved, consider gentle IVF hydration in setting of CHF. Hole nephrotoxic meds (2) Anorexia Impression: Improved Cont Remeron & Megace (3) Chronic a-fib Impression: Rate controlled. Cont coumadin, Diltiazem, Metoprolol (4) Pneumonia Impression: CXR equivocal Pt on RA now, w/ normal lungs on exam and no respiratory distress or increased work of breathing Cont emperic abx, but given but maintain on meds per UTI treatment pending C&S Qualifiers: Pneumonia type: aspiration pneumonia Aspiration pneumonia type: unspecified Laterality: bilateral Lung location: lower lobe of lung Qualified Code(s): J69.0 - Pneumonitis due to inhalation of food and vomit (5) Diabetes mellitus type 2 in nonobese Impression: Controlled Cont insulin sliding scale (6) Sepsis Impression: Resolved, likely 2/2 UTI, pending UA results. Qualifiers: Sepsis type: sepsis due to unspecified organism Qualified Code(s): A41.9 - Sepsis, unspecified organism
[2018-03-28] MEDS ORDERED: DEXTROSE 5%-0.9% NACL 1,000 ML IV SCH (12:00)
[2018-03-28] MEDS: BUDESONIDE 0.5 MG/2 ML NEB INH SCH ×2 (20:37→20:38)
[2018-03-28] MEDS: MIRTAZAPINE 15 MG TABLET PO SCH (21:03)
[2018-03-28] MEDS: DONEPEZIL 5 MG TABLET PO SCH (21:04)
[2018-03-28] MEDS: ATORVASTATIN 40 MG TABLET PO SCH (21:07)
[2018-03-29] MEDS: SODIUM CHLORIDE FLUSH 0.9% 10 ML SYRINGE IVP SCH ×3 (03:20→17:18)
[2018-03-29] MEDS: PIPERACILLIN/TAZOBACTAM 2.25 GM in SODIUM CHLORIDE 0.9% MINIBAG 100 ML IV SCH ×4 (03:50→22:30)
[2018-03-29] MEDS: ZINC OXIDE 20% OINT 28.35 GM TUBE TOP PRN (03:50)
[2018-03-29 04:42] LABS: BASOPHILS # (AUTO) 0.1 10^3/uL (0.0-0.1); BASOPHILS % (AUTO) 0.9 %; EOSINOPHILS # (AUTO) 0.1 10^3/uL (0.0-0.7); EOSINOPHILS % (AUTO) 1.1 %; HGB - HEMOGLOBIN 9.9 g/dL (12.0-16.0); LYMPHOCYTES % (AUTO) 7.9 %; MEAN CORPUSCULAR HEMOGLOBIN 26.6 pg (27.0-31.0); MEAN CORPUSCULAR HGB CONC 34.3 g/dL (32.0-36.0); MEAN CORPUSCULAR VOLUME 77.6 fL (81.0-99.0); MEAN PLATELET VOLUME 7.5 fL (7.9-10.8); MONOCYTES # (AUTO) 0.8 10^3/uL (0.0-1.0); MONOCYTES % (AUTO) 6.8 %; NEUTROPHILS # (AUTO) 10.3 10^3/uL (1.5-6.6); NEUTROPHILS % (AUTO) 83.3 %; PLT - PLATELET COUNT 292 10^3/uL (130-450); RED BLOOD COUNT 3.73 10^6/uL (4.20-5.40); RED CELL DISTRIBUTION WIDTH 16.6 % (12.0-15.0); WHITE BLOOD COUNT 12.4 x10^3/uL (4.8-10.8)
[2018-03-29 04:53] LABS: ALBUMIN 2.3 g/dL (3.2-5.5); ALBUMIN/GLOBULIN RATIO 0.7 (1.0-2.2); BILIRUBIN,TOTAL 0.4 mg/dL (0.2-1.0); CALCIUM 7.2 mg/dL (8.5-10.3); CREATININE 3.7 mg/dL (0.4-1.0); TOTAL PROTEIN 5.5 g/dL (6.7-8.2)
[2018-03-29] MEDS: PANTOPRAZOLE 40 MG VIAL IVP SCH (07:16)
[2018-03-29] MEDS: INSULIN ASPART 300 UNIT/3 ML PEN SUBQ SCH ×4 (07:55→21:00)
[2018-03-29] MEDS: METOPROLOL SUCCINATE 50 MG TABLET PO SCH (08:18)
[2018-03-29] MEDS: MEMANTINE 5 MG TABLET PO SCH ×2 (08:18→20:29)
[2018-03-29] MEDS: diltiaZEM CD 120 MG CAPSULE PO SCH (08:18)
[2018-03-29] MEDS: MEGESTROL 400 MG/10 ML UDC PO SCH (08:18)
[2018-03-29] MEDS: NYSTATIN POWDER 15 GM TOP SCH ×2 (08:18→20:30)
[2018-03-29] MEDS: TRIAMCINOLONE 0.1% CREAM 15 GM TUBE TOP SCH ×2 (08:19→20:29)
[2018-03-29] MEDS: POLYETHYLENE GLYCOL 3350 17 GM PACKET PO SCH (08:19)
[2018-03-29] MEDS: SODIUM CHLORIDE 0.9% 1,000 ML IV SCH ×2 (08:29→20:27)
[2018-03-29] MEDS ORDERED: WARFARIN 2.5 MG TABLET PO SCH (09:00)
[2018-03-29] MEDS: MULTIVITAMIN W/MINERALS TABLET PO SCH (11:41)
--- NOTE | 2018-03-29 12:05 | PROVIDER PROGRESS NOTE ---
Subjective - Prog Note Date Prog Note Date: 03/29/18 Prog Note Time: 12:02 - Subjective Pt reports feeling: Improved Subjective: Pt denies any complaints Current Medications - Current Medications Current Medications: Medications Summary Albuterol/Ipratropium (Duoneb) 3 ml INH RTQ4H PRN PRN Reason: Wheezing Last Admin: 03/27/18 19:15 Dose: 3 ml Atorvastatin Calcium (Lipitor) 20 mg PO QPM [facility] Last Admin: 03/28/18 21:07 Dose: 20 mg Diltiazem HCl (Cardizem Cd) 360 mg PO DAILY [facility] Last Admin: 03/29/18 08:18 Dose: 360 mg Donepezil HCl (Aricept) 10 mg PO QPM [facility] Last Admin: 03/28/18 21:04 Dose: 10 mg Piperacillin Sod/Tazobactam (Sod 2.25 gm/ Sodium Chloride) 100 mls @ 200 mls/hr IV Q6H [facility] Last Infusion: 03/29/18 10:01 Dose: 0 mls/hr Medication Titration Document 03/29/18 10:01 METOTG (Rec: 03/29/18 10:01 METOTG [id number]) Titration Intake Titration Intake 100 Cumulative Intake 100 Container Volume 0 Elapsed Time 3h 47m Titration Dosing IV Rate 0 Increase/Decrease Infused Cumulative Dose 0 Total Intake (Rx) 700 Volume Adjustment/Waste 0 Sodium Chloride (Normal Saline 0.9%) 1,000 mls @ 100 mls/hr IV .Q10H [facility] Last Admin: 03/29/18 08:29 Dose: 100 mls/hr Medication Titration Document 03/29/18 08:29 METOTG (Rec: 03/29/18 08:29 METOTG [id number]) Titration Intake Container Volume 1,000 Elapsed Time 0m Titration Dosing IV Rate 100 Increase/Decrease Started Cumulative Dose Not Applicable Volume Adjustment/Waste 0 Insulin Aspart (Novolog) 1 - 5 unit SUBQ 0800,1200,1700,2100 [facility]; Protocol Last Admin: 03/29/18 11:39 Dose: Not Given Non-Admin Reason: Physiologically Contraindicated Blood Glucose Document 03/29/18 11:39 METOTG (Rec: 03/29/18 11:39 METOTG [id number]) Blood Glucose Result (mg/dL) 111 Megestrol Acetate (Megace) 800 mg PO DAILY [facility] Last Admin: 10/29/18 08:18 Dose: 800 mg Memantine (Namenda) 5 mg PO BID [facility] Last Admin: 03/29/18 08:18 Dose: 5 mg Metoprolol Succinate (Toprol Xl) 100 mg PO DAILY [facility] Last Admin: 03/29/18 08:18 Dose: 100 mg Mirtazapine (Remeron) 7.5 mg PO QPM [facility] Last Admin: 03/28/18 21:03 Dose: 7.5 mg Multi-Ingredient Ointment (Zinc Oxide) 1 applic TOP PRN PRN PRN Reason: Skin Care Last Admin: 03/29/18 03:50 Dose: 1 applic Multivitamins/Minerals (Theragran M) 1 tab PO DAILYWM [facility] Last Admin: 03/29/18 11:41 Dose: 1 tab Nystatin (Nystop) 1 applic TOP BID [facility] Last Admin: 03/29/18 08:18 Dose: 1 applic Pantoprazole Sodium (Protonix) 40 mg IVP QDAC [facility] Last Admin: 03/29/18 07:16 Dose: 40 mg Polyethylene Glycol (Miralax) 17 gm PO DAILY [facility] Last Admin: 03/29/18 08:19 Dose: 17 gm Bowel - Constipation Care Document 03/29/18 08:19 METOTG (Rec: 03/29/18 08:19 METOTG [id number]) Constipation Defined As: Current Step Protocol: PCS.BPI Protocol Protocol A Last BM (If unknown, assume 3 days ago) 03/26/18 Sodium Chloride (Normal Saline Flush 0.9%) 10 ml IVP PRN PRN PRN Reason: NEEDED PER PROVIDER ORDERS Last Admin: 03/28/18 06:17 Dose: 10 ml Sodium Chloride (Normal Saline Flush 0.9%) 10 ml IVP 0100,0900,1700 [facility] Last Admin: 03/29/18 08:19 Dose: 10 ml Triamcinolone Acetonide (Kenalog 0.1% Cream) 1 applic TOP BID [facility] Last Admin: 03/29/18 08:19 Dose: 1 applic Warfarin Sodium (Coumadin) 5 mg PO SUTUTHSA@0900 [facility] Last Admin: 03/28/18 10:00 Dose: 5 mg Warfarin Sodium (Coumadin) 7.5 mg PO MOWEFR@0900 [facility] Last Admin: 03/29/18 08:19 Dose: 7.5 mg Discontinued Medications Allopurinol (Zyloprim) 100 mg PO DAILY [facility] Last Admin: 03/28/18 08:33 Dose: 100 mg Aspirin ([place] Aspirin) 81 mg PO ONCE ESTHER Stop: 03/27/18 16:48 Last Admin: 03/27/18 17:00 Dose: 81 mg Budesonide (Pulmicort) 0.5 mg INH RTBID [facility] Last Admin: 03/28/18 20:38 Dose: Not Given Non-Admin Reason: given at 2036 Sodium Chloride (Normal Saline 0.9%) 1,000 mls @ 0 mls/hr IV .Q0M ONE Stop: 03/27/18 11:47 Last Infusion: 03/27/18 13:44 Dose: 0 mls/hr Medication Titration Document 03/27/18 13:44 CP (Rec: 03/27/18 13:44 CP [id number]) Titration Intake Titration Intake 1,000 Cumulative Intake 1,000 Container Volume 0 Elapsed Time 1h 3m Titration Dosing IV Rate 0 Increase/Decrease Infused Cumulative Dose Not Applicable Total Intake (Rx) 1,000 Volume Adjustment/Waste 0 Ceftriaxone Sodium 1 gm/ (Sodium Chloride) 100 mls @ 200 mls/hr IV ONCE STA Stop: 03/27/18 14:11 Last Infusion: 03/27/18 14:37 Dose: 0 mls/hr Medication Titration Document 03/27/18 14:37 CP (Rec: 03/27/18 14:37 CP [id number]) Titration Intake Titration Intake 100 Cumulative Intake 100 Container Volume 0 Elapsed Time 38m Titration Dosing IV Rate 0 Increase/Decrease Infused Cumulative Dose 0 Total Intake (Rx) 100 Volume Adjustment/Waste 0 Piperacillin Sod/Tazobactam (Sod 2.25 gm/ Sodium Chloride) 100 mls @ 200 mls/hr IV Q6H [facility] Last Infusion: 03/27/18 16:30 Dose: 0 mls/hr Medication Titration Document 03/27/18 16:30 RDR (Rec: 03/27/18 17:02 RDR [id number]) Titration Intake Titration Intake 100 Cumulative Intake 100 Container Volume 0 Elapsed Time 30m Titration Dosing IV Rate 0 Increase/Decrease Infused Cumulative Dose 0 Total Intake (Rx) 100 Volume Adjustment/Waste 0 Dextrose/Sodium Chloride (D5ns) 1,000 mls @ 125 mls/hr IV .Q8H [facility] Last Infusion: 03/28/18 12:00 Dose: 0 mls/hr Medication Titration Document 03/28/18 12:00 RDR (Rec: 03/28/18 12:57 RDR [id number]) Titration Intake Titration Intake 0.5 Cumulative Intake 63 Container Volume 0 Elapsed Time 18h 0m Titration Dosing IV Rate 0 Increase/Decrease Infused Cumulative Dose Not Applicable Total Intake (Rx) 2,063 Volume Adjustment/Waste 937 Dextrose/Sodium Chloride (D5ns) 1,000 mls @ 0 mls/hr IV .Q0M [facility] Last Infusion: 03/29/18 08:29 Dose: 0 mls/hr Medication Titration Document 03/29/18 08:29 METOTG (Rec: 03/29/18 08:29 METOTG [id number]) Titration Intake Titration Intake 434.5 Cumulative Intake 509.5 Container Volume 0 Elapsed Time 16h 59m Titration Dosing IV Rate 0 Increase/Decrease Infused Cumulative Dose Not Applicable Total Intake (Rx) 509.5 Volume Adjustment/Waste 490.5 Objective - Vital Signs/Intake & Output Reviewed Vital Signs: Yes Vital Signs: Vital Signs x48h Temp Pulse Resp BP Pulse Ox 03/29/18 08:45 36.9 C 79 21 142/58 H 96 Intake & Output: Intake & Output 03/26/18 03/27/18 03/28/18 03/29/18 23:59 23:59 23:59 23:59 Intake Total 2362.5 3925.500 1454.5 Output Total 550 Balance 2362.5 3925.500 904.5 - Objective General Appearance: positive: No acute distress Eyes Bilateral: positive: Normal inspection Neck: positive: Nml inspection Respiratory: positive: Chest non-tender, No respiratory distress, Breath sounds nml Cardiovascular: positive: No murmur, No gallop, Irregularly irregular Abdomen: positive: Non-tender, No organomegaly, Nml bowel sounds Skin: positive: Warm, Other (lower leg excoriations with mild eythema bilat erally) Extremities: positive: No pedal edema Neurologic/Psychiatric: positive: CN's nml (2-12), Motor nml, Disoriented to person, Disoriented to place - Lab Results Fish Bones: 03/29/18 04:31 03/29/18 04:31 Other Labs: Lab Results x24hrs 03/29/18 03/29/18 03/29/18 Range/Units 11:36 07:50 04:31 WBC (4.8-10.8) x10^3/uL RBC (4.20-5.40) 10^6/uL Hgb (12.0-16.0) g/dL Hct (37.0-47.0) % MCV (81.0-99.0) fL MCH (27.0-31.0) pg MCHC (32.0-36.0) g/dL RDW (12.0-15.0) % Plt Count (130-450) 10^3/uL MPV (7.9-10.8) fL Neut # (Auto) (1.5-6.6) 10^3/uL Lymph # (Auto) (1.5-3.5) 10^3/uL [place] # (Auto) (0.0-1.0) 10^3/uL Eos # (Auto) (0.0-0.7) 10^3/uL Baso # (Auto) (0.0-0.1) 10^3/uL Absolute Nucleated RBC x10^3/uL Nucleated RBC % /100WBC Sodium (135-145) mmol/L Potassium (3.5-5.0) mmol/L Chloride (101-111) mmol/L Carbon Dioxide (21-32) mmol/L Anion Gap (6-13) BUN (6-20) mg/dL Creatinine (0.4-1.0) mg/dL Estimated GFR (MDRD) (>89) Glucose (70-100) mg/dL POC Whole Bld Glucose 111 H 91 (70 - 100) mg/dL Calcium (8.5-10.3) mg/dL Phosphorus 2.6 (2.5-4.6) mg/dL Total Bilirubin (0.2-1.0) mg/dL AST (10-42) IU/L ALT (10-60) IU/L Alkaline Phosphatase (42-121) IU/L Total Protein (6.7-8.2) g/dL Albumin (3.2-5.5) g/dL Globulin (2.1-4.2) g/dL Albumin/Globulin Ratio (1.0-2.2) 03/29/18 03/29/18 03/28/18 Range/Units 04:31 04:31 21:01 WBC 12.4 H (4.8-10.8) x10^3/uL RBC 3.73 L (4.20-5.40) 10^6/uL Hgb 9.9 L (12.0-16.0) g/dL Hct 28.9 L (37.0-47.0) % MCV 77.6 L (81.0-99.0) fL MCH 26.6 L (27.0-31.0) pg MCHC 34.3 (32.0-36.0) g/dL RDW 16.6 H (12.0-15.0) % Plt Count 292 (130-450) 10^3/uL MPV 7.5 L (7.9-10.8) fL Neut # (Auto) 10.3 H (1.5-6.6) 10^3/uL Lymph # (Auto) 1.0 L (1.5-3.5) 10^3/uL [place] # (Auto) 0.8 (0.0-1.0) 10^3/uL Eos # (Auto) 0.1 (0.0-0.7) 10^3/uL Baso # (Auto) 0.1 (0.0-0.1) 10^3/uL Absolute Nucleated RBC 0.00 x10^3/uL Nucleated RBC % 0.0 /100WBC Sodium 136 (135-145) mmol/L Potassium 3.4 L (3.5-5.0) mmol/L Chloride 104 (101-111) mmol/L Carbon Dioxide 20 L (21-32) mmol/L Anion Gap 12.0 (6-13) BUN 66 H (6-20) mg/dL Creatinine 3.7 H (0.4-1.0) mg/dL Estimated GFR (MDRD) 12 L (>89) Glucose 106 H (70-100) mg/dL POC Whole Bld Glucose 113 H (70 - 100) mg/dL Calcium 7.2 L (8.5-10.3) mg/dL Phosphorus (2.5-4.6) mg/dL Total Bilirubin 0.4 (0.2-1.0) mg/dL AST 36 (10-42) IU/L ALT 38 (10-60) IU/L Alkaline Phosphatase 68 (42-121) IU/L Total Protein 5.5 L (6.7-8.2) g/dL Albumin 2.3 L (3.2-5.5) g/dL Globulin 3.2 (2.1-4.2) g/dL Albumin/Globulin Ratio 0.7 L (1.0-2.2) 03/28/18 03/28/18 03/28/18 Range/Units 16:54 11:56 07:44 WBC (4.8-10.8) x10^3/uL RBC (4.20-5.40) 10^6/uL Hgb (12.0-16.0) g/dL Hct (37.0-47.0) % MCV (81.0-99.0) fL MCH (27.0-31.0) pg MCHC (32.0-36.0) g/dL RDW (12.0-15.0) % Plt Count (130-450) 10^3/uL MPV (7.9-10.8) fL Neut # (Auto) (1.5-6.6) 10^3/uL Lymph # (Auto) (1.5-3.5) 10^3/uL [place] # (Auto) (0.0-1.0) 10^3/uL Eos # (Auto) (0.0-0.7) 10^3/uL Baso # (Auto) (0.0-0.1) 10^3/uL Absolute Nucleated RBC x10^3/uL Nucleated RBC % /100WBC Sodium (135-145) mmol/L Potassium (3.5-5.0) mmol/L Chloride (101-111) mmol/L Carbon Dioxide (21-32) mmol/L Anion Gap (6-13) BUN (6-20) mg/dL Creatinine (0.4-1.0) mg/dL Estimated GFR (MDRD) (>89) Glucose (70-100) mg/dL POC Whole Bld Glucose 132 H 104 H 118 H (70 - 100) mg/dL Calcium (8.5-10.3) mg/dL Phosphorus (2.5-4.6) mg/dL Total Bilirubin (0.2-1.0) mg/dL AST (10-42) IU/L ALT (10-60) IU/L Alkaline Phosphatase (42-121) IU/L Total Protein (6.7-8.2) g/dL Albumin (3.2-5.5) g/dL Globulin (2.1-4.2) g/dL Albumin/Globulin Ratio (1.0-2.2) 03/27/18 03/27/18 Range/Units 20:36 16:58 WBC (4.8-10.8) x10^3/uL RBC (4.20-5.40) 10^6/uL Hgb (12.0-16.0) g/dL Hct (37.0-47.0) % MCV (81.0-99.0) fL MCH (27.0-31.0) pg MCHC (32.0-36.0) g/dL RDW (12.0-15.0) % Plt Count (130-450) 10^3/uL MPV (7.9-10.8) fL Neut # (Auto) (1.5-6.6) 10^3/uL Lymph # (Auto) (1.5-3.5) 10^3/uL [place] # (Auto) (0.0-1.0) 10^3/uL Eos # (Auto) (0.0-0.7) 10^3/uL Baso # (Auto) (0.0-0.1) 10^3/uL Absolute Nucleated RBC x10^3/uL Nucleated RBC % /100WBC Sodium (135-145) mmol/L Potassium (3.5-5.0) mmol/L Chloride (101-111) mmol/L Carbon Dioxide (21-32) mmol/L Anion Gap (6-13) BUN (6-20) mg/dL Creatinine (0.4-1.0) mg/dL Estimated GFR (MDRD) (>89) Glucose (70-100) mg/dL POC Whole Bld Glucose 160 H 97 (70 - 100) mg/dL Calcium (8.5-10.3) mg/dL Phosphorus (2.5-4.6) mg/dL Total Bilirubin (0.2-1.0) mg/dL AST (10-42) IU/L ALT (10-60) IU/L Alkaline Phosphatase (42-121) IU/L Total Protein (6.7-8.2) g/dL Albumin (3.2-5.5) g/dL Globulin (2.1-4.2) g/dL Albumin/Globulin Ratio (1.0-2.2) ABX Reporting Has patient been on IV antibiotics over the past 48 hours?: Yes Assessment/Plan - Problem List (1) ZANA (acute kidney injury) Impression: Unfortunately, pt did not improve o/n. This is likely due to dehydration in setting of CHF treated with Lasix. After improved oral intake, IVF were held yesterday due to concern of CHF (EF of 30%). This was not enough fluid apparently, as Cr is up to 3.7 from 3.6 in patient with baseline < 2. I have increased IVF back to 125 ml/hr, cont to hold nephrotoxic meds (she is on Zosyn, but is on renal dosing and can probably d/c this at 5 days or sooner if no si of infection). (2) Anorexia Impression: Improving. Cont Remeron and Megace. Likely a consequence of Alzheimer's. Will also check Mg and Ph in am. Also palliative care consult pending. (3) Chronic a-fib Impression: Rate controlled. Cont coumadin, Diltiazem, Metoprolol (4) Pneumonia Impression: CXR equivocal Pt on RA now, w/ normal lungs on exam and no respiratory distress or increased work of breathing. Ok to d/c Zosyn at 5 days given good clinical response and elevated Cr (Zosyn is being renally dose but will still be worth stopping if not needed). Qualifiers: Pneumonia type: aspiration pneumonia Aspiration pneumonia type: unspecified Laterality: bilateral Lung location: lower lobe of lung Qualified Code(s): J69.0 - Pneumonitis due to inhalation of food and vomit (5) Diabetes mellitus type 2 in nonobese Impression: Controlled Cont insulin sliding scale (6) Sepsis Impression: Present on admit. Resolved. Can transfer to medical floor. Qualifiers: Sepsis type: sepsis due to unspecified organism Qualified Code(s): A41.9 - Sepsis, unspecified organism
--- NOTE | 2018-03-29 12:44 | CONSULTATION NOTE ---
Palliative Care Consultation - Referral Referring Provider: Dr. Mike Pierce Time of Visit: [id number] Referral Reason: Alzheimers/Goals of Care - Information Sources Records reviewed: Previous records reviewed History/Review of Systems obtained from: Patient, Family ( Santo provided history) Exam limitations: Clinical condition (patient with STM issues; verbal and with s ome recall FAST 6D) - History of Present Illness Brief History of Present Illness: This is a 77-year-old woman with moderate to severe Alzheimer's, acutely admi tted with acute renal failure with a creatinine of 3.8, and bilateral pneumonia right greater than left, associated bilateral pleural effusions. Patient presented with a WBC of 28.1, and history of significant decline over the last couple days. Has been reports patient was not eating, was sleeping about 20 hours, And is having significantly more weakness and confusion. Has been did reach out to friend, who encouraged him to call 911, does appear somewhat over whelmed as far as recognizing her decline. Patient has had increasing difficulty with memory per report, reports she has a fluctuating status as far as awareness and ability to participate in day-to-day activities, she had last acute UTI 07/2017 been referred to outpatient physical therapy. This had continued, working on balance, but was found to have increasing shortness of breath at times, last session was about two weeks ago. Reports patient is able to self-feed, they have Meals on Wheels, he has not noticed any choking or concerns with swallowing. She has needed some assistance with dressing, he does set her clothes out, reports she does wear depends but is managing to change those independently. She is continent of bowels. She reports she has not been eating for the last 2 days, patient does not present with understanding why she is in the hospital, her biggest complaint is they have not let her sleep. Patient denies any distress, shortness of breath, or pain. She does have some insight into the context that she is weak, and is able to engage socially, but no accurate history. 's goals are for patient to get stronger, to be able to after a [place] [facility] facility stay, return home. He reports he has been managing up to this point, they do not have any caregiving, feels if she were to be further incontinent or increased dependence this may be of concerned as far as of threshold for being able to be at home. He has upcoming hernia surgery planned on 04/09, had plan to stay at [facility] and arrange for assisted living in [facility]. Rosa's mother did have Alzheimer's, he does see some parallel patterns developing, and expresses concern regarding financial stressors if patient were to be needing placement. Medical/Surgical History - Past Medical History Cardiovascular: reports: Congestive heart failure, Hypertension, Atrial fibrillation Respiratory: reports: Shortness of breath Neuro: Alzhiemer's, Dementia Endocrine/Autoimmune: reports: Type 2 diabetes TAPE LIBRARIAN: reports: Other (post-SARA) : reports: Incontinence, Renal insuffiency HEENT: reports: None (Per hx on Zoloft ) Psych: reports: Depression Musculoskeletal: reports: Fatigue Derm: reports: Other (Dermatitis with pruritus and excoriations ) MRSA Hx?: No Other Past Medical History: Hyperlipidema, Prior hx e. coli UTI, afib, iron def anemia - Past Surgical History /TAPE LIBRARIAN: reports: Hysterectomy - Substance History Use: Uses substance without health or social issues: NONE Abuse: Recurrent use of substance despite neg consequences: NONE Dependence: Experiences withdrawal or developed tolerances: NONE Social History - Living Situation Living arrangement: At home Living Situation: With spouse/s.o. Support System: Patient and have been for 50 years, they have been on [facility] for 7 years. Currently live in [facility] that is on one main level, but steep walk into entrance. 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 been health is been compromised with recent broken right ankle, and now pending hernia surgery. They have a daughter Lisbet who works at [employer], does help them negotiate the medical system and referrals, as well as a granddaughter Kassandra who works at [facility] assisted living/SNF for which they are hoping to be placed. They have 1 son in [place], who is coming this weekend for support as well as they have lost his son to cancer 12 years ago to lung cancer, but are connected to his family. [place] Meals on Wheels, reports financial limitations as far as being able to hire help or further placement Family History - Family History Family History: Mother: (son of lung cancer), Alzheimer's Disease, Father: , Other family: Medications/Allergies - Medications Active Medication List: Active Medications Albuterol/Ipratropium (Duoneb) 3 ml INH RTQ4H PRN PRN Reason: Wheezing Last Admin: 03/27/18 19:15 Dose: 3 ml Atorvastatin Calcium (Lipitor) 20 mg PO QPM [facility] Last Admin: 03/28/18 21:07 Dose: 20 mg Diltiazem HCl (Cardizem Cd) 360 mg PO DAILY [facility] Last Admin: 03/29/18 08:18 Dose: 360 mg Donepezil HCl (Aricept) 10 mg PO QPM [facility] Last Admin: 03/28/18 21:04 Dose: 10 mg Piperacillin Sod/Tazobactam (Sod 2.25 gm/ Sodium Chloride) 100 mls @ 200 mls/hr IV Q6H [facility] Last Infusion: 03/29/18 10:01 Dose: Infused Sodium Chloride (Normal Saline 0.9%) 1,000 mls @ 100 mls/hr IV .Q10H [facility] Last Admin: 03/29/18 08:29 Dose: 100 mls/hr Insulin Aspart (Novolog) 1 - 5 unit SUBQ 0800,1200,1700,2100 [facility]; Protocol Last Admin: 03/29/18 11:39 Dose: Not Given Megestrol Acetate (Megace) 800 mg PO DAILY [facility] Last Admin: 03/29/18 08:18 Dose: 800 mg Memantine (Namenda) 5 mg PO BID [facility] Last Admin: 03/29/18 08:18 Dose: 5 mg Metoprolol Succinate (Toprol Xl) 100 mg PO DAILY [facility] Last Admin: 03/29/18 08:18 Dose: 100 mg Metoprolol Tartrate (Lopressor Inj) 5 mg IVP Q4HR PRN PRN Reason: HR>120 or SBP>160 Mirtazapine (Remeron) 7.5 mg PO QPM [facility] Last Admin: 03/28/18 21:03 Dose: 7.5 mg Morphine Sulfate (Morphine (Carpuject)) 1 mg IVP Q2HR PRN PRN Reason: Pain 8 to 10 Multi-Ingredient Ointment (Zinc Oxide) 1 applic TOP PRN PRN PRN Reason: Skin Care Last Admin: 03/29/18 03:50 Dose: 1 applic Multivitamins/Minerals (Theragran M) 1 tab PO DAILYWM [facility] Last Admin: 03/29/18 11:41 Dose: 1 tab Nitroglycerin (Nitrostat) 0 mg SL PRN PRN PRN Reason: Chest Pain Nystatin (Nystop) 1 applic TOP BID [facility] Last Admin: 03/29/18 08:18 Dose: 1 applic Ondansetron HCl (Zofran Inj) 4 mg IVP Q6HR PRN PRN Reason: Nausea / Vomiting Ondansetron HCl (Zofran Odt) 4 mg TL Q6HR PRN PRN Reason: Nausea / Vomiting Pantoprazole Sodium (Protonix) 40 mg IVP QDAC [facility] Last Admin: 03/29/18 07:16 Dose: 40 mg Polyethylene Glycol (Miralax) 17 gm PO DAILY [facility] Last Admin: 03/29/18 08:19 Dose: 17 gm Sodium Chloride (Normal Saline Flush 0.9%) 10 ml IVP PRN PRN PRN Reason: NEEDED PER PROVIDER ORDERS Last Admin: 03/28/18 06:17 Dose: 10 ml Sodium Chloride (Normal Saline Flush 0.9%) 10 ml IVP 0100,0900,1700 [facility] Last Admin: 03/29/18 08:19 Dose: 10 ml Triamcinolone Acetonide (Kenalog 0.1% Cream) 1 applic TOP BID [facility] Last Admin: 03/29/18 08:19 Dose: 1 applic Warfarin Sodium (Coumadin) 5 mg PO SUTUTHSA@0900 [facility] Last Admin: 03/28/18 10:00 Dose: 5 mg Warfarin Sodium (Coumadin) 7.5 mg PO MOWEFR@0900 [facility] Last Admin: 03/29/18 08:19 Dose: 7.5 mg Donepezil HCl [Donepezil HCl Odt] 10 mg PO QPM 08/28/17 Furosemide [Lasix] 40 mg PO DAILY 08/28/17 Losartan Potassium 100 mg PO DAILY 08/28/17 Metoprolol Succinate 100 mg PO DAILY 08/28/17 Sertraline HCl 100 mg PO QPM 08/28/17 Warfarin [Coumadin] 5 mg PO SUTUTHSA@0900 08/28/17 dilTIAZem HCl [Diltiazem 24Hr Cd] 360 mg PO DAILY 08/28/17 Duloxetine HCl 30 mg PO DAILY 03/27/18 Metformin HCl 500 mg PO BIDWM 03/27/18 Warfarin Sodium 7.5 mg PO MOWEFR@0900 03/27/18 - Allergies Allergies/Adverse Reactions: Allergies Allergy/AdvReac Type Severity Reaction Status Date / Time No Known Drug Allergies Allergy Verified 08/28/17 19:49 Review of Systems - Constitutional Constitutional: reports: Fatigue, Weakness, Weight loss (power and recovery shift engineer reports 9% weight loss in 7 months). denies: Fever - Cardiovascular Cardiovascular: reports: Exertional dyspnea, Decr. exercise tolerance. denies: Chest pain - Respiratory Respiratory: reports: SOB with exertion. denies: Cough - Gastrointestinal Gastrointestinal: reports: Good appetite (improved today). 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 denies: Behavior disturbances (no wandering/agitation) - Endocrine Endocrine: reports: Diabetes type 2 Physical Exam - Vital Signs Vital Signs: Vital Signs x48h Temp Pulse Resp BP Pulse Ox 03/29/18 08:45 36.9 C 79 21 142/58 H 96 - Physical Exam General Appearance: positive: No acute distress, Alert Eyes Bilateral: positive: Normal inspection ENT: positive: No signs of dehydration Neck: positive: No JVD, Trachea midline Cardiovascular: positive: Regular rate & rhythm Respiratory: positive: Diminished in bases. negative: Wheezes, Rales, Rhonchi Abdomen: positive: Non-tender, Soft, Nml bowel sounds, Obese Skin: positive: Pallor, Dryness, Pruritis, Rash (bilateral LE with scrathes/dressing on right fields; scrathes across back) Extremities: positive: No pedal edema Neurologic/Psychiatric: positive: Mood/affect nml, Disoriented to time Palliative Care - POLST Patient has POLST: Yes POLST Status: DNR, Selective Treatment (completed with Dr. Pierce and 03/27) Pain: No pain Tiredness/Fatigue: Severe (7-10) (reports not letting her sleep; reports patient sleeps 8-10 hours at night; and again 5-6 hours in recliner during day) - Palliative Care Discussion: Patient with little insight or understanding to why she is in the hospital, her understanding of her disease. Seemed quite surprised when told she had pneumonia and they were treating her kidneys and heart. She does not present with any distress regarding this, other than were not letting her sleep. Met with separately, reviewed patient's ongoing decline, he does have concerns about being able to manage long-term. Short-term goals are to hopefully take get her to [place] [facility], to be able to get stronger has to be able to maintain some independence and return home. He is scheduled himself to have hernia surgery, is hoping that this will coincide as far as recovery for both of them to be able to manage again independently. He did share his concerns and journey regarding patient's mother and her experience with Alzheimer's. She did have an acute fall and broke a hip, continued to have complications and ended up dying of a heart attack at the long-term. He is concerned about being able to manage and recognize, as patient was quite ill before he accessed help. Did review on transition back home, we support services in the community including Alzheimer's support group. May also benefit from "time together" Alzheimer's daycare that is offered in the community. We did talk about long-term planning, expected and anticipatory guidance regarding decline with dementia, worried about financial resources and how they would manage at that point. Has completed [facility], with Dr. Pierce on admit, does recognize the seriousness of her illness, but is hoping for some improvement in her quality of life. Results - Lab Results Lab results reviewed: Yes Fish Bones: 03/29/18 04:31 03/29/18 04:31 Lab and Imaging Results: Lab Results x24hrs 03/29/18 03/29/18 03/29/18 Range/Units 11:36 07:50 04:31 WBC (4.8-10.8) x10^3/uL RBC (4.20-5.40) 10^6/uL Hgb (12.0-16.0) g/dL Hct (37.0-47.0) % MCV (81.0-99.0) fL MCH (27.0-31.0) pg MCHC (32.0-36.0) g/dL RDW (12.0-15.0) % Plt Count (130-450) 10^3/uL MPV (7.9-10.8) fL Neut # (Auto) (1.5-6.6) 10^3/uL Lymph # (Auto) (1.5-3.5) 10^3/uL [place] # (Auto) (0.0-1.0) 10^3/uL Eos # (Auto) (0.0-0.7) 10^3/uL Baso # (Auto) (0.0-0.1) 10^3/uL Absolute Nucleated RBC x10^3/uL Nucleated RBC % /100WBC Sodium (135-145) mmol/L Potassium (3.5-5.0) mmol/L Chloride (101-111) mmol/L Carbon Dioxide (21-32) mmol/L Anion Gap (6-13) BUN (6-20) mg/dL Creatinine (0.4-1.0) mg/dL Estimated GFR (MDRD) (>89) Glucose (70-100) mg/dL POC Whole Bld Glucose 111 H 91 (70 - 100) mg/dL Calcium (8.5-10.3) mg/dL Phosphorus 2.6 (2.5-4.6) mg/dL Total Bilirubin (0.2-1.0) mg/dL AST (10-42) IU/L ALT (10-60) IU/L Alkaline Phosphatase (42-121) IU/L Total Protein (6.7-8.2) g/dL Albumin (3.2-5.5) g/dL Globulin (2.1-4.2) g/dL Albumin/Globulin Ratio (1.0-2.2) 03/29/18 03/29/18 03/28/18 Range/Units 04:31 04:31 21:01 WBC 12.4 H (4.8-10.8) x10^3/uL RBC 3.73 L (4.20-5.40) 10^6/uL Hgb 9.9 L (12.0-16.0) g/dL Hct 28.9 L (37.0-47.0) % MCV 77.6 L (81.0-99.0) fL MCH 26.6 L (27.0-31.0) pg MCHC 34.3 (32.0-36.0) g/dL RDW 16.6 H (12.0-15.0) % Plt Count 292 (130-450) 10^3/uL MPV 7.5 L (7.9-10.8) fL Neut # (Auto) 10.3 H (1.5-6.6) 10^3/uL Lymph # (Auto) 1.0 L (1.5-3.5) 10^3/uL [place] # (Auto) 0.8 (0.0-1.0) 10^3/uL Eos # (Auto) 0.1 (0.0-0.7) 10^3/uL Baso # (Auto) 0.1 (0.0-0.1) 10^3/uL Absolute Nucleated RBC 0.00 x10^3/uL Nucleated RBC % 0.0 /100WBC Sodium 136 (135-145) mmol/L Potassium 3.4 L (3.5-5.0) mmol/L Chloride 104 (101-111) mmol/L Carbon Dioxide 20 L (21-32) mmol/L Anion Gap 12.0 (6-13) BUN 66 H (6-20) mg/dL Creatinine 3.7 H (0.4-1.0) mg/dL Estimated GFR (MDRD) 12 L (>89) Glucose 106 H (70-100) mg/dL POC Whole Bld Glucose 113 H (70 - 100) mg/dL Calcium 7.2 L (8.5-10.3) mg/dL Phosphorus (2.5-4.6) mg/dL Total Bilirubin 0.4 (0.2-1.0) mg/dL AST 36 (10-42) IU/L ALT 38 (10-60) IU/L Alkaline Phosphatase 68 (42-121) IU/L Total Protein 5.5 L (6.7-8.2) g/dL Albumin 2.3 L (3.2-5.5) g/dL Globulin 3.2 (2.1-4.2) g/dL Albumin/Globulin Ratio 0.7 L (1.0-2.2) 03/28/18 03/28/18 03/28/18 Range/Units 16:54 11:56 07:44 WBC (4.8-10.8) x10^3/uL RBC (4.20-5.40) 10^6/uL Hgb (12.0-16.0) g/dL Hct (37.0-47.0) % MCV (81.0-99.0) fL MCH (27.0-31.0) pg MCHC (32.0-36.0) g/dL RDW (12.0-15.0) % Plt Count (130-450) 10^3/uL MPV (7.9-10.8) fL Neut # (Auto) (1.5-6.6) 10^3/uL Lymph # (Auto) (1.5-3.5) 10^3/uL [place] # (Auto) (0.0-1.0) 10^3/uL Eos # (Auto) (0.0-0.7) 10^3/uL Baso # (Auto) (0.0-0.1) 10^3/uL Absolute Nucleated RBC x10^3/uL Nucleated RBC % /100WBC Sodium (135-145) mmol/L Potassium (3.5-5.0) mmol/L Chloride (101-111) mmol/L Carbon Dioxide (21-32) mmol/L Anion Gap (6-13) BUN (6-20) mg/dL Creatinine (0.4-1.0) mg/dL Estimated GFR (MDRD) (>89) Glucose (70-100) mg/dL POC Whole Bld Glucose 132 H 104 H 118 H (70 - 100) mg/dL Calcium (8.5-10.3) mg/dL Phosphorus (2.5-4.6) mg/dL Total Bilirubin (0.2-1.0) mg/dL AST (10-42) IU/L ALT (10-60) IU/L Alkaline Phosphatase (42-121) IU/L Total Protein (6.7-8.2) g/dL Albumin (3.2-5.5) g/dL Globulin (2.1-4.2) g/dL Albumin/Globulin Ratio (1.0-2.2) 03/27/18 03/27/18 Range/Units 20:36 16:58 WBC (4.8-10.8) x10^3/uL RBC (4.20-5.40) 10^6/uL Hgb (12.0-16.0) g/dL Hct (37.0-47.0) % MCV (81.0-99.0) fL MCH (27.0-31.0) pg MCHC (32.0-36.0) g/dL RDW (12.0-15.0) % Plt Count (130-450) 10^3/uL MPV (7.9-10.8) fL Neut # (Auto) (1.5-6.6) 10^3/uL Lymph # (Auto) (1.5-3.5) 10^3/uL [place] # (Auto) (0.0-1.0) 10^3/uL Eos # (Auto) (0.0-0.7) 10^3/uL Baso # (Auto) (0.0-0.1) 10^3/uL Absolute Nucleated RBC x10^3/uL Nucleated RBC % /100WBC Sodium (135-145) mmol/L Potassium (3.5-5.0) mmol/L Chloride (101-111) mmol/L Carbon Dioxide (21-32) mmol/L Anion Gap (6-13) BUN (6-20) mg/dL Creatinine (0.4-1.0) mg/dL Estimated GFR (MDRD) (>89) Glucose (70-100) mg/dL POC Whole Bld Glucose 160 H 97 (70 - 100) mg/dL Calcium (8.5-10.3) mg/dL Phosphorus (2.5-4.6) mg/dL Total Bilirubin (0.2-1.0) mg/dL AST (10-42) IU/L ALT (10-60) IU/L Alkaline Phosphatase (42-121) IU/L Total Protein (6.7-8.2) g/dL Albumin (3.2-5.5) g/dL Globulin (2.1-4.2) g/dL Albumin/Globulin Ratio (1.0-2.2) Impression and Recommendations - Palliative Care Impression: This is a 77-year-old woman with Alzheimer dementia presenting as at FAST6D, with acute pneumonia and AK I, and multiple comorbidities including CHF with an ejection fraction of 30-35%, atrial fib, diabetes type 2, and functional and cognitive decline. Palliative care to review goals of care, establish rapport, and provide anticipatory guidance Recommendations/Counseling Done: 1. Dementia with out behavioral disturbances. Patient admitted acutely, Has had acute functional decline. Patient at baseline has balance issues, ambulatory with a cane, and sedentary. with some understanding regarding dementia, recognizing patient's decline, but with minimal support or anticipatory guidance. Recommended on transition home, to consider Alzheimer's support group, as well as possibly "time together" daycare. 2. Muscle weakness. Has been is needing patient to be more independent, ambulatory and independent in transfers. He himself is pending hernia surgery, is somewhat frail, and is hoping for [place] [facility] where granddaughter/daughter will be available to oversee care. This is Patricia zimmer's, contact information is [phone]. Consult with physical therapist does feel patient would be appropriate candidate, and would benefit from support and therapy. This was communicated to the TELECOMMUNICATION ENGINEER and hospitalist for goals and choice of placement 3. Advanced care planning. [facility] in place, copy to HIM for transfer. Counseling provided regarding the continuum of care, anticipatory guidance regarding dementia, as well as review of current coping and resources for the future. Patient actually presents with concern for prognosis. On the Jasen index that looks at hospitalized adults 70 and older and all because 1 year mortality, risk calculators her total score is a 7. Risk calculators cannot predict the future for any one individual that can give an estimate of how many people with similar risk factors will live and but they cannot identify who will live in who will her risk factors of 1 year mortality actually fall into 64%. Time Spent: 60 minutes with greater than 50% of this done in counseling regarding goals of care, establishing palliative care rapport, anticipatory guidance.
[2018-03-29] MEDS: ATORVASTATIN 40 MG TABLET PO SCH (20:28)
[2018-03-29] MEDS: DONEPEZIL 5 MG TABLET PO SCH (20:28)
[2018-03-29] MEDS: MIRTAZAPINE 15 MG TABLET PO SCH (20:29)
[2018-03-30] MEDS: PIPERACILLIN/TAZOBACTAM 2.25 GM in SODIUM CHLORIDE 0.9% MINIBAG 100 ML IV SCH (04:45)
[2018-03-30] MEDS: SODIUM CHLORIDE FLUSH 0.9% 10 ML SYRINGE IVP SCH ×2 (04:45→10:10)
[2018-03-30 04:58] LABS: BASOPHILS % (AUTO) 0.4 %; EOSINOPHILS # (AUTO) 0.1 10^3/uL (0.0-0.7); EOSINOPHILS % (AUTO) 1.2 %; HGB - HEMOGLOBIN 9.6 g/dL (12.0-16.0); LYMPHOCYTES # (AUTO) 0.9 10^3/uL (1.5-3.5); LYMPHOCYTES % (AUTO) 9.2 %; MEAN CORPUSCULAR HEMOGLOBIN 25.5 pg (27.0-31.0); MEAN CORPUSCULAR HGB CONC 32.1 g/dL (32.0-36.0); MEAN CORPUSCULAR VOLUME 79.3 fL (81.0-99.0); MEAN PLATELET VOLUME 7.5 fL (7.9-10.8); MONOCYTES # (AUTO) 0.6 10^3/uL (0.0-1.0); MONOCYTES % (AUTO) 6.2 %; NEUTROPHILS # (AUTO) 8.4 10^3/uL (1.5-6.6); PLT - PLATELET COUNT 298 10^3/uL (130-450); RED BLOOD COUNT 3.77 10^6/uL (4.20-5.40); RED CELL DISTRIBUTION WIDTH 16.9 % (12.0-15.0); WHITE BLOOD COUNT 10.1 x10^3/uL (4.8-10.8)
[2018-03-30] MEDS: PANTOPRAZOLE 40 MG VIAL IVP SCH (06:34)
[2018-03-30] MEDS: SODIUM CHLORIDE 0.9% 1,000 ML IV SCH ×2 (06:40→08:05)
[2018-03-30] MEDS: MULTIVITAMIN W/MINERALS TABLET PO SCH (08:40)
[2018-03-30] MEDS: INSULIN ASPART 300 UNIT/3 ML PEN SUBQ SCH (08:40)
[2018-03-30] MEDS: POLYETHYLENE GLYCOL 3350 17 GM PACKET PO SCH (08:41)
[2018-03-30] MEDS: METOPROLOL SUCCINATE 50 MG TABLET PO SCH (08:41)
[2018-03-30] MEDS: diltiaZEM CD 120 MG CAPSULE PO SCH (08:41)
[2018-03-30] MEDS: NYSTATIN POWDER 15 GM TOP SCH (08:42)
[2018-03-30] MEDS: WARFARIN 5 MG TABLET PO SCH (08:43)
--- NOTE | 2018-03-30 09:19 | PROVIDER PROGRESS NOTE ---
Subjective - Prog Note Date Prog Note Date: 03/30/18 Prog Note Time: 09:21 - Subjective Subjective: Quiet, sleepy. No incidences overnight. Vitals are stable. Eating 75-100% of her food. Current Medications - Current Medications Current Medications: Active Medications Albuterol/Ipratropium (Duoneb) 3 ml INH RTQ4H PRN PRN Reason: Wheezing Last Admin: 03/27/18 19:15 Dose: 3 ml Atorvastatin Calcium (Lipitor) 20 mg PO QPM [facility] Last Admin: 03/29/18 20:28 Dose: 20 mg Diltiazem HCl (Cardizem Cd) 360 mg PO DAILY [facility] Last Admin: 03/30/18 08:41 Dose: 360 mg Donepezil HCl (Aricept) 10 mg PO QPM [facility] Last Admin: 03/29/18 20:28 Dose: 10 mg Piperacillin Sod/Tazobactam (Sod 2.25 gm/ Sodium Chloride) 100 mls @ 200 mls/hr IV Q6H [facility] Last Infusion: 03/30/18 05:15 Dose: Infused Sodium Chloride (Normal Saline 0.9%) 1,000 mls @ 100 mls/hr IV .Q10H [facility] Last Admin: 03/30/18 08:05 Dose: 100 mls/hr Insulin Aspart (Novolog) 1 - 5 unit SUBQ 0800,1200,1700,2100 [facility]; Protocol Last Admin: 03/30/18 08:40 Dose: Not Given Megestrol Acetate (Megace) 800 mg PO DAILY [facility] Last Admin: 03/29/18 08:18 Dose: 800 mg Memantine (Namenda) 5 mg PO BID [facility] Last Admin: 03/29/18 20:29 Dose: 5 mg Metoprolol Succinate (Toprol Xl) 100 mg PO DAILY [facility] Last Admin: 03/30/18 08:41 Dose: 100 mg Metoprolol Tartrate (Lopressor Inj) 5 mg IVP Q4HR PRN PRN Reason: HR>120 or SBP>160 Mirtazapine (Remeron) 7.5 mg PO QPM [facility] Last Admin: 03/29/18 20:29 Dose: 7.5 mg Morphine Sulfate (Morphine (Carpuject)) 1 mg IVP Q2HR PRN PRN Reason: Pain 8 to 10 Multi-Ingredient Ointment (Zinc Oxide) 1 applic TOP PRN PRN PRN Reason: Skin Care Last Admin: 03/29/18 03:50 Dose: 1 applic Multivitamins/Minerals (Theragran M) 1 tab PO DAILYWM [facility] Last Admin: 03/30/18 08:40 Dose: 1 tab Nitroglycerin (Nitrostat) 0 mg SL PRN PRN PRN Reason: Chest Pain Nystatin (Nystop) 1 applic TOP BID [facility] Last Admin: 03/30/18 08:42 Dose: 1 applic Ondansetron HCl (Zofran Inj) 4 mg IVP Q6HR PRN PRN Reason: Nausea / Vomiting Ondansetron HCl (Zofran Odt) 4 mg TL Q6HR PRN PRN Reason: Nausea / Vomiting Pantoprazole Sodium (Protonix) 40 mg IVP QDAC [facility] Last Admin: 03/30/18 06:34 Dose: 40 mg Polyethylene Glycol (Miralax) 17 gm PO DAILY [facility] Last Admin: 03/30/18 08:41 Dose: 17 gm Sodium Chloride (Normal Saline Flush 0.9%) 10 ml IVP PRN PRN PRN Reason: NEEDED PER PROVIDER ORDERS Last Admin: 03/28/18 06:17 Dose: 10 ml Sodium Chloride (Normal Saline Flush 0.9%) 10 ml IVP 0100,0900,1700 [facility] Last Admin: 03/30/18 04:45 Dose: Not Given Triamcinolone Acetonide (Kenalog 0.1% Cream) 1 applic TOP BID [facility] Last Admin: 03/29/18 20:29 Dose: 1 applic Warfarin Sodium (Coumadin) 5 mg PO SUTUTHSA@0900 [facility] Last Admin: 03/30/18 08:43 Dose: 5 mg Warfarin Sodium (Coumadin) 7.5 mg PO MOWEFR@0900 [facility] Last Admin: 03/29/18 08:19 Dose: 7.5 mg Donepezil HCl [Donepezil HCl Odt] 10 mg PO QPM 08/28/17 Furosemide [Lasix] 40 mg PO DAILY 08/28/17 Losartan Potassium 100 mg PO DAILY 08/28/17 Metoprolol Succinate 100 mg PO DAILY 08/28/17 Sertraline HCl 100 mg PO QPM 08/28/17 Warfarin [Coumadin] 5 mg PO SUTUTHSA@0900 08/28/17 dilTIAZem HCl [Diltiazem 24Hr Cd] 360 mg PO DAILY 08/28/17 Duloxetine HCl 30 mg PO DAILY 03/27/18 Metformin HCl 500 mg PO BIDWM 03/27/18 Warfarin Sodium 7.5 mg PO MOWEFR@0900 03/27/18 Objective - Vital Signs/Intake & Output Reviewed Vital Signs: Yes Vital Signs: Vital Signs x48h Temp Pulse Resp BP Pulse Ox 03/30/18 08:15 36.7 C 68 21 168/73 H 98 03/30/18 04:48 36.5 C 66 24 142/73 H 96 Intake & Output: Intake & Output 03/27/18 03/28/18 03/29/18 03/30/18 23:59 23:59 23:59 23:59 Intake Total 2362.5 3925.500 3259.5 1150 Output Total 740 400 Balance 2362.5 3925.500 2519.5 750 - Objective General Appearance: positive: No acute distress, Other (Sleeping and is lying on her back, snoring, but wakes easily.) Eyes Bilateral: positive: PERRL, EOMI ENT: positive: Dry mucous membranes (From open mouth breathing on her back). negative: Pharyngeal erythema Neck: positive: No JVD. negative: Stiff neck, Carotid bruit Respiratory: positive: Chest non-tender, Rales (At the bases. They clear with an occasional deep cough.). negative: No respiratory distress, Wheezes, Rhonchi Cardiovascular: positive: Regular rate & rhythm, Systolic murmur. negative: Gallop/S4, Friction rub Abdomen: positive: Non-tender, No organomegaly, Nml bowel sounds, No distention Skin: positive: Warm, Dry Extremities: positive: Pedal edema (Trace edema around her ankles, nonpitting). negative: Joint swelling, Priscilla's sign/cords Neurologic/Psychiatric: positive: CN's nml (2-12), Motor nml (But with generalized weakness), Disoriented to place (She does not know why she is here), Disoriented to time - Lab Results Fish Bones: 03/30/18 04:44 03/30/18 04:44 Other Labs: Lab Results x24hrs 03/30/18 03/30/18 03/30/18 Range/Units 08:10 04:44 04:44 WBC 10.1 (4.8-10.8) x10^3/uL RBC 3.77 L (4.20-5.40) 10^6/uL Hgb 9.6 L (12.0-16.0) g/dL Hct 29.9 L (37.0-47.0) % MCV 79.3 L (81.0-99.0) fL MCH 25.5 L (27.0-31.0) pg MCHC 32.1 (32.0-36.0) g/dL RDW 16.9 H (12.0-15.0) % Plt Count 298 (130-450) 10^3/uL MPV 7.5 L (7.9-10.8) fL Neut # (Auto) 8.4 H (1.5-6.6) 10^3/uL Lymph # (Auto) 0.9 L (1.5-3.5) 10^3/uL [place] # (Auto) 0.6 (0.0-1.0) 10^3/uL Eos # (Auto) 0.1 (0.0-0.7) 10^3/uL Baso # (Auto) 0.0 (0.0-0.1) 10^3/uL Absolute Nucleated RBC 0.00 x10^3/uL Nucleated RBC % 0.0 /100WBC POC Whole Bld Glucose 94 (70 - 100) mg/dL Phosphorus (2.5-4.6) mg/dL Magnesium 1.7 (1.7-2.8) mg/dL 03/29/18 03/29/18 03/29/18 Range/Units 16:42 11:36 04:31 WBC (4.8-10.8) x10^3/uL RBC (4.20-5.40) 10^6/uL Hgb (12.0-16.0) g/dL Hct (37.0-47.0) % MCV (81.0-99.0) fL MCH (27.0-31.0) pg MCHC (32.0-36.0) g/dL RDW (12.0-15.0) % Plt Count (130-450) 10^3/uL MPV (7.9-10.8) fL Neut # (Auto) (1.5-6.6) 10^3/uL Lymph # (Auto) (1.5-3.5) 10^3/uL [place] # (Auto) (0.0-1.0) 10^3/uL Eos # (Auto) (0.0-0.7) 10^3/uL Baso # (Auto) (0.0-0.1) 10^3/uL Absolute Nucleated RBC x10^3/uL Nucleated RBC % /100WBC POC Whole Bld Glucose 141 H 111 H (70 - 100) mg/dL Phosphorus 2.6 (2.5-4.6) mg/dL Magnesium (1.7-2.8) mg/dL ABX Reporting Has patient been on IV antibiotics over the past 48 hours?: Yes Assessment/Plan - Problem List (1) ZANA (acute kidney injury) Impression: Unfortunately, pt did not improve o/n. This is likely due to dehydration in setting of CHF treated with Lasix. After improved oral intake, IVF were held 03/28 due to concern of CHF (EF of 30%). This was not enough fluid apparently, as Cr came up to 3.7 from 3.6 in patient with baseline < 2. Increased IVF back to 125 ml/hr on 03/29, cont to hold nephrotoxic meds (she is on Zosyn, but is on renal dosing and can probably d/c this at 5 days or sooner if no of infection). Her creatinine is now 4 today. C02 is also low so getting acidotic on BMP. Renal ultrasound done this admission shows no hydronephrosis. The only reason no toxic drugs she is on is the Zosyn. We will stop today. (2) Chronic systolic congestive heart failure. Echo on March 28 shows moderate to severe left ventricular enlargement with overall left ventricular systolic function moderately impaired, EF is 35-40%. Hypokinesis basal apical anteroseptal and septal wall segments. Right ventricle normal in size and function. Mild to moderate tricuspid regurgitation. Moderately abnormal right heart pressures. RVSP at rest is 55 mmHg. With her renal failure, and IV fluids being given, we need to play that delicate balancing game of hydrating her enough versus putting her into acute congestive heart failure. Lung exam does have crackles but no worse than usual. Oxygen requirement stable. Check BNP (3) Anorexia Impression: Improving. Cont Remeron and Megace. Likely a consequence of Alzheimer's. Mg and Ph are nml. Also palliative care consult pending. She was on Cymbalta and Z oloft prior to admission and those were stopped. (4) Chronic a-fib Impression: Rate controlled. Cont coumadin, Diltiazem, Metoprolol (5) Pneumonia Impression: CXR equivocal. Blood cultures have been negative Pt on RA now, w/ normal lungs on exam and no respiratory distress or increased work of breathing. Ok to d/c Zosyn at 5 days given good clinical response and elevated Cr (Zosyn is being renally dose but will still be worth stopping if not needed). Today is day #3 of Zosyn going into Day #4. 04/01/18 will be 5 days. Will change to oral medication in the form of Levaquin today. Qualifiers: Pneumonia type: aspiration pneumonia Aspiration pneumonia type: unspecified Laterality: bilateral Lung location: lower lobe of lung Qualified Code(s): J69.0 - Pneumonitis due to inhalation of food and vomit (6) Diabetes mellitus type 2 in nonobese Impression: Controlled. She has been controlled since admission. Yesterday she was 91, 111, 141, 115. This morning she is 94. Cont insulin sliding scale (7) Sepsis Impression: Present on admit. Resolved. Can transfer to medical floor from ICU today. She has been stable for for 48 hours. Qualifiers: Sepsis type: sepsis due to unspecified organism Qualified Code(s): A41.9 - Sepsis, unspecified organism (8) Hypokalemia Supplement po.
[2018-03-30 09:45] LABS: CALCIUM 7.3 mg/dL (8.5-10.3)
[2018-03-30] MEDS: MEMANTINE 5 MG TABLET PO SCH (10:04)
[2018-03-30] MEDS: SODIUM CHLORIDE FLUSH 0.9% 10 ML SYRINGE IVP PRN (10:04)
[2018-03-30] MEDS: MEGESTROL 400 MG/10 ML UDC PO SCH (10:04)
[2018-03-30] MEDS ORDERED: levoFLOXacin 250 MG TABLET PO SCH (11:00)
[2018-03-30] MEDS: TRIAMCINOLONE 0.1% CREAM 15 GM TUBE TOP SCH (11:33)
[2018-03-30] MEDS ORDERED: MIN OIL/DIMETHICON/COCONUT OIL 92 GM TUBE TOP PRN (14:47)
--- NOTE | 2018-03-30 15:01 | Discharge Plan ---
Discharge Plan for SNF / [facility] - Discharge Plan And Transition Orders Disposition: 03 SNF DC/Xfer Condition: Fair Allergies and Adverse Reactions: Allergies Allergy/AdvReac Type Severity Reaction Status Date / Time No Known Drug Allergies Allergy Verified 08/28/17 19:49 - SNF / [facility]ENTION Transition Orders Admit to (Facility): [facility] Under the care of (Name): Khadar Fernández MD (PCP is Maco Gottlieb) Discharge Diagnosis: 1. Chronic systolic congestive heart failure 2. Acute renal failure 3. Abnormal troponins 4. Bilateral basilar streaky infiltrates with pleural effusions 5. Alzheimer's dementia 6. Passive liver congestion with abnormal liver enzymes, total bili 1.5 AST 53, ALT 59 7. Microcytic anemia 8. Palliative care patient 9. Generalized weakness and failure to thrive Medicare Certification Statement: I certify that [facility] Hospital half-way care is medically necessary on a continuing basis for any of the conditions for which she/he is receiving care during hospitalization. Notify PCP of admission and forward orders to primary provider for signature. Weight on admission and: Weekly Call PCP immediately if weight increases by: 2.2 kg Other Notification Orders: Call PCP immediately if patient develops dyspnea, chest pain/tightness or edema. House Bowel Program: Yes Additional Bowel Program Orders: If no BM after 2 days, nurse may give M.O.M. 30ml PO PRN and/or ducolax Supp 1 CO and/or LILLIANA 250mg P.O., and/or senna 1-2 tabs PO. On day 3 nurse may give repeat above order until residents constipation is resolved. Annual Influenza Vaccine (between Jan 30 and August 29): Yes Two-step PPD per [facility] [id number] or approved exception documents: Yes Oxygen Orders: Oxygen by nasal cannula PRN to keep O2 sats greater than or equal to 92% Lab Tests or X-ray Orders: BMP on March 31, April 02, April 05 Medication Orders: PLEASE REFER TO THE DISCHARGE MEDICATION LIST. Insulin Orders?: Yes - Medications New Prescriptions: Zinc Oxide [Perishield] 100 gm TP DAILY #1 oint...g. - Diet Type: No added salt Texture: Regular Liquids: Thin May have monthly special meal: Yes - Therapies | Activity Therapy: Evaluation | Treat if indicated: Speech, PT, OT, Swallowing / ST Rehabilitation Potential: Return to independent living Activity: Activity as Tolerated Assistance Devices: Walker Additional Instructions: She is a 77-year-old elderly female who has moderate to severe Alzheimer's dementia, type 2 diabetes mellitus, hypertension, hyperlipidemia, chronic UTIs, and chronic atrial fibrillation who presented to our emergency room with failure to thrive. She lives in her own home. Her takes care of the bills, cleaning the house, getting food on the table and she is completely dependent on him. She has had decreasing p.o. intake, weakness, and more and more time in bed for several weeks. On the day of admission she finally "stopped eating and getting out of bed" so the brought her to the hospital. She had an acute creatinine of 3.8, troponins elevated at 0.23, chronic atrial fibrillation that was rate control, chest x-rays with bilateral scattered infiltrates in the bases, small bilateral pleural effusions, a white cell count at 28,000 and a glucose of 133. Her echocardiogram shows both left and right-sided heart failure. Her ejection fraction is 30-35% with regional wall motion abnormalitie s. Right ventricle is normal with mildly impaired systolic function. She was diuresed, but that resulted in a rise in her creatinine and she has been given IV fluids back. She was treated for her pneumonia with Zosyn. That was stopped and she was changed to Levaquin because of the creatinine. However Levaquin is every other day for 2 more doses only. She is on high-dose diltiazem to control her heart rate for her atrial fibrillation as well as metoprolol. This may be impacting her ejection fraction as well. You may have to reduce that dose. She was not given metformin while in the hospital for fears of metabolic acidosis. While here she was controlled with NovoLog insulin and she was only given 1 unit on March 27 and 1 unit on March 29 to control her glucose. Right now she is not being discharged on metformin. She did receive Megace while here to improve her appetite. She received it on March 28, , and . Her appetite did improve in the short time she was on it. But it may not have had anything to do with the Megace. She is not being discharged on it, we will leave it to your discretion if she should be resumed on it. She is already in the palliative care service. When she is discharged please have her follow-up with Freida Nevarez, and Maco garrison.She is being transitioned to your facility to improve her endurance, strength. It is her 's hope that he will take her back home as long as she is able to transfer from laying to sitting position, and sitting to standing position. Insulin Orders - SNF Basal | Correction | Custom Orders: Diagnosis: Diabetes Initiate hypo and hyperglycemia protocols for BG <70 and BG >375. May check BG PRN for signs/symptoms of dysglycemia. Frequency of BG checks: [AC/Meal/HS] Basal Insulin: [] Lantus 100 units / ml inject subq as follows: [] [] Other: [] Correction Insulin: - Select the type of insulin below [Choose: Novolog/Humalog]100 units /ml insulin inject subq per orders indicate below [X] LOW DOSE [] MODERATE DOSE [] MODERATE/HIGH DOSE [] HIGH DOSE GB UNITS GB UNITS GB UNITS GB UNITS 61-140 0 UNITS 61-140 0 UNITS 61-140 0 UNITS 61-140 0 UNITS 141-175 1 UNITS 141-175 1 UNITS 141-175 2 UNITS 141-175 3 UNITS 176-225 2 UNITS 176-225 3 UNITS 176-225 4 UNITS 176-225 5 UNITS 226-275 3 UNITS 226-275 5 UNITS 226-275 6 UNITS 226-275 7 UNITS 276-325 4 UNITS 276-325 7 UNITS 276-325 8 UNITS 276-325 9 UNITS 326-375 5 UNITS 326-375 9 UNITS 326-375 10 UNITS 326-375 11 UNITS >375 CONTACT MD >375 CONTACT MD >375 CONTACT MD >375 CONTACT MD Custom Dosing: [Choose: Novolog/Humalog] 100 units/ml Insulin inject subq as follows: GB Units 61-140 [] Units 141-175 [] Units 176-225 [] Units 226-275 [] Units 276-325 []Units 326-375 [] Units >375 Contact MD
[2018-03-30 15:48] VITALS: BP 127/61
[2018-03-31] MEDS ORDERED: diltiaZEM CD 180 MG CAPSULE PO SCH (09:00)
--- NOTE | 2018-04-04 16:21 | DISCHARGE SUMMARY ---
Physician: Martha Zhang MD DATE OF ADMISSION: 03/27/2018 DATE OF DISCHARGE: 03/30/2018 DISCHARGE DIAGNOSES 1. Sepsis. 2. Pneumonia. 3. Acute chronic systolic congestive heart failure. 4. Atrial fibrillation. 5. Demand ischemia. 6. Abnormal troponins. 7. Acute kidney injury. 8. Dehydration. 9. Generalized weakness. 10. Adult failure to thrive. 11. Type 2 diabetes mellitus, controlled, with complications, not on long-term use of insulin. 12. Alzheimer dementia with behavioral disorder. DISCHARGE MEDICATIONS To group home facility: 1. Lasix 40 mg p.o. daily. 2. Losartan 100 mg p.o. daily. 3. Metoprolol succinate 100 mg p.o. daily. 4. Coumadin 7.5 mg on Thursday, Thursday, Thursday; and 5 mg on Thursday, Thursday, , Thursday. 5. Lipitor 20 mg p.o. q.p.m. 6. Diltiazem CD 360 mg p.o. daily. 7. Donepezil ODT 10 mg p.o. q.p.m. 8. DuoNeb via nebulizer q.4 hours p.r.n. 9. Levaquin 500 mg p.o. q.48 hours, 4 doses on 04/02/2018 and 04/04/2018 10. Namenda 5 mg p.o. b.i.d. 11. Remeron 7.5 mg p.o. q.p.m. 12. Multivitamin one p.o. daily. 13. Nystatin application to Diane intertrigo b.i.d. 14. Zinc oxide to perineum topically daily for barrier protection. PRINCIPAL PROCEDURES 1. Chest x-ray with bibasilar streaky atelectasis or infiltrate, right greater than left; small bilateral pleural effusions, right greater than left. 2. Stable mild cardiomegaly. 3. Retroperitoneal ultrasound with no hydronephrosis or renal calculi. 4. Echocardiogram showing [id number] left ventricular enlargement. Overall left ventricular systolic function moderately impaired with an ejection fraction of 35% to 40%. Hypokinesis in the basal, apical, anteroseptal and septal wall segments. Right ventricle normal. [id number] tricuspid regurgitation. Mildly abnormal right heart pressures. Right ventricular systolic pressure at rest 55 mmHg. 5. Blood cultures, no growth after 5 days. HOSPITAL COURSE: The patient is a 77-year-old female who lives with her . She has [id number] Alzheimer disease and is completely dependent on him with regard to activities of daily living to get food to her, prompts her to bathe, prompt her to dress. She typically ambulates with a cane. Over the last several weeks, if not months, she has been getting less and less cooperative, sleeping more and more during the day. No specific complaints of coughing, wheezing. No complaints of abdominal pain. In addition to her Alzheimer's, she has type 2 diabetes, hypertension, hyperlipidemia, chronic UTIs and chronic atrial fibrillation for which she is anticoagulated. Over the last couple of days, she has essentially "stopped eating" and has stopped getting out of bed. brought her into the emergency room, where we found her to have an acute renal failure with creatinine 3.8. Troponin elevated to 0.23. Atrial fibrillation was rate controlled, not in RVR. Chest x-ray had bilateral streaky pneumonia, right worse than left. She was not febrile but had a white cell count of 28.1 with normal electrolytes. Her INR was 2.2, lactic acid 2.2, uric acid elevated as well as total bilirubin. She is a DNR with limited intervention. We are allowed to use IV medications, BiPAP, and then make an attempt at reversing illness, but not to do life support. POLST was signed by her as her power of tax associate attorney with her lack of ability to have decision-making capability. As her hydration and IV antibiotic therapy continued, she began becoming more alert. She was also placed on Megace for poor p.o. intake. BUN started at 74, and by discharge she was 66. Creatinine started at 3.8 and unfortunately stayed stable and was 4.0 at discharge. Even though she does not have retroperitoneal evidence of obstruction, it is felt that this patient may have suffered irreversible kidney damage over the course of time with dehydration and decreasing p.o. intake. Her elevated bili was 1.5 and was 0.4 by the time of discharge. BNP was 4606 on admission and down to 2562 at discharge. It was a balancing treatment plan, in that we had to take into account her acute renal failure and hydrate her but at the same time take into account her congestive heart failure that we saw on echocardiogram. Because we feared nephrotoxicity adding to her creatinine rise, her Zosyn was stopped. Her anorexia appeared to improve with Remeron and Megace, and as such, those were continued. In the outpatient setting, she had been on Cymbalta and Zoloft, and those were stopped. Chronic AFib remained rate controlled through her stay with diltiazem, metoprolol, and she continued to be anticoagulated with Coumadin. There was no further rise in her troponin that we felt was due more to demand ischemia than true NSTEMI. Her pneumonia therapy was completed with Levaquin as opposed to Zosyn. She had already received 5 days of Zosyn and only needed 2 more doses of Levaquin every 48 hours. Diabetes was controlled during her stay. She was in the 90s-100s. Glycosylated hemoglobin was 6.3. Overall, we felt that criteria for sepsis that was present on admission had resolved within 24 hours. Electrolyte imbalance with hypokalemia resolved with supplementation as well. She was evaluated by Physical Therapy. When she ambulated in the room on room air, she had respiratory effort, fatigue. She felt mildly winded, and sitting in a chair after her walk, she was 98% with a heart rate of 89. She needed prompting to make sure she continued her exercise to improve strength in her legs and to regain some of the functional mobility she has lost. She was cooperating very nicely with physical therapy to do repetitions of leg lifts and arm lifts. She was felt that she should continue to get physical therapy in a group home facility rehab facility. She was able to be transported via wheelchair van. Although it was reported that she has problems with her Alzheimer's and can get quite agitated, especially with her , she was cooperative during her stay at this hospital. As such, she was transferred to the group home facility. DISCHARGE PHYSICAL EXAMINATION VITAL SIGNS: Temperature of 36.6, pulse 62, blood pressure 127/61, respirations 22, and she is 98% on room air. Weight on admission was 99.79 kg, and weight at discharge was 94 kg. GENERAL: She was a 2-person assist and needing help to get to the bathroom, cardiac chair, and needed a gait belt and a walker. She was in no pain, exhibiting forgetfulness, short-term memory loss. Needed gentle prompting to remind her where she was and why she was here on a daily basis and every shift. Last bowel movement was 03/29/2018. LUNGS: She had coarse upper bronchial breath sounds, but no crackles, rhonchi, wheezing. BREASTS: She had some resolving Diane underneath her breast pannus. ABDOMEN: Benign with normal bowel sounds. She had some erythema and evidence of hyperpigmentation or pigment changes of chronic venous stasis over the anterior shins of both legs. The skin texture was rough and scaly. The perineum was also pink, but no skin breakdown. Greater than 30 minutes was spent in coordinating discharge. TD: 04/04/2018 10:53 NATHANAEL
== END 2018-03-30 16:19 | DRG 871 ==
LOC: EDUNIT# → ED 11:37 → UNDOADMIN 13:56 → ICU 13:56 → MS2 03-30 09:14 → UNDOADMIN 03-30 09:14 → ICU 03-30 09:14 → UNDODISIN 03-30 16:19
PROVIDERS: ADMIT Family Medicine; ATTEND Specialist
DX: J18.1 Lobar pneumonia, unspecified organism (principal); A41.9 Sepsis, unspecified organism; J69.0 Pneumonitis due to inhalation of food and vomit; I50.9 Heart failure, unspecified; E11.9 Type 2 diabetes mellitus without complications; I50.23 Acute on chronic systolic (congestive) heart failure; R40.2412 Glasgow coma scale score 13-15, at arrival to emergency department; N17.9 Acute kidney failure, unspecified; N39.0 Urinary tract infection, site not specified; I11.0 Hypertensive heart disease with heart failure; I25.9 Chronic ischemic heart disease, unspecified; E86.0 Dehydration; E87.6 Hypokalemia; G30.9 Alzheimer's disease, unspecified; F02.80 Dementia in other diseases classified elsewhere, unspecified severity, without behavioral disturbance, psychotic disturbance, mood disturbance, and anxiety; E78.5 Hyperlipidemia, unspecified; I48.2 Chronic atrial fibrillation; E11.21 Type 2 diabetes mellitus with diabetic nephropathy; R62.7 Adult failure to thrive; R63.0 Anorexia; Z68.35 Body mass index [BMI] 35.0-35.9, adult; F32.9 Major depressive disorder, single episode, unspecified; L30.9 Dermatitis, unspecified; L29.9 Pruritus, unspecified; R13.12 Dysphagia, oropharyngeal phase; Z66 Do not resuscitate; Z51.5 Encounter for palliative care; R79.89 Other specified abnormal findings of blood chemistry; Z79.01 Long term (current) use of anticoagulants; Z79.84 Long term (current) use of oral hypoglycemic drugs; Z87.440 Personal history of urinary (tract) infections
CPT/HCPCS: 36415; 71046; 76770; 80048; 80053; 81001; 81003; 82550; 83036; 83605; 83690; 83735; 83880; 84100; 84484; 84550; 85025; 85610; 87040; 87086; 87150; 93005; 93306; 94640; 96361; 96365; 99222; 99284; 99285

== ENCOUNTER 2018-03-31 16:37 | Outpatient (CLI) | payer MEDICARE, OTHER ==
[2018-03-31 20:02] LABS: CALCIUM 7.8 mg/dL (8.5-10.3)
== END 2018-03-31 16:38 | disposition home or self-care (01) ==
LOC: LAB.R 16:37
DX: J18.9 Pneumonia, unspecified organism (principal)
CPT/HCPCS: 80048

== ENCOUNTER 2018-04-02 13:45 | Outpatient (CLI) | payer MEDICARE, OTHER ==
[2018-04-02 14:33] LABS: BASOPHILS # (AUTO) 0.1 10^3/uL (0.0-0.1); BASOPHILS % (AUTO) 0.7 %; EOSINOPHILS # (AUTO) 0.2 10^3/uL (0.0-0.7); EOSINOPHILS % (AUTO) 1.5 %; HGB - HEMOGLOBIN 10.3 g/dL (12.0-16.0); LYMPHOCYTES % (AUTO) 8.3 %; MEAN CORPUSCULAR HEMOGLOBIN 25.1 pg (27.0-31.0); MEAN CORPUSCULAR HGB CONC 32.3 g/dL (32.0-36.0); MEAN CORPUSCULAR VOLUME 77.8 fL (81.0-99.0); MEAN PLATELET VOLUME 7.3 fL (7.9-10.8); MONOCYTES # (AUTO) 0.6 10^3/uL (0.0-1.0); MONOCYTES % (AUTO) 4.7 %; NEUTROPHILS % (AUTO) 84.8 %; PLT - PLATELET COUNT 515 10^3/uL (130-450); RED BLOOD COUNT 4.12 10^6/uL (4.20-5.40); RED CELL DISTRIBUTION WIDTH 17.3 % (12.0-15.0); WHITE BLOOD COUNT 11.8 x10^3/uL (4.8-10.8)
[2018-04-02 14:39] LABS: INR 3.2 (0.8-1.2); PT - PROTHROMBIN TIME 35.6 secs (9.9-12.6)
[2018-04-02 14:42] LABS: CALCIUM 7.9 mg/dL (8.5-10.3); CREATININE 3.9 mg/dL (0.4-1.0)
== END 2018-04-02 13:46 | disposition home or self-care (01) ==
LOC: LAB.R 13:45
DX: N18.9 Chronic kidney disease, unspecified (principal); D64.9 Anemia, unspecified; R79.1 Abnormal coagulation profile
CPT/HCPCS: 80048; 85025; 85610; 85730

== ENCOUNTER 2018-04-05 11:45 | Outpatient (CLI) | payer MEDICARE, OTHER ==
[2018-04-05 13:10] LABS: CALCIUM 8.1 mg/dL (8.5-10.3); CREATININE 3.7 mg/dL (0.4-1.0)
== END 2018-04-05 11:46 ==
LOC: LAB.R 11:45
DX: E11.9 Type 2 diabetes mellitus without complications (principal)
CPT/HCPCS: 80048

== ENCOUNTER 2018-04-15 11:50 | Outpatient (CLI) | payer MEDICARE, OTHER ==
[2018-04-15 13:04] LABS: BASOPHILS # (AUTO) 0.1 10^3/uL (0.0-0.1); BASOPHILS % (AUTO) 0.7 %; EOSINOPHILS # (AUTO) 0.2 10^3/uL (0.0-0.7); EOSINOPHILS % (AUTO) 2.6 %; HGB - HEMOGLOBIN 10.9 g/dL (12.0-16.0); LYMPHOCYTES % (AUTO) 12.2 %; MEAN CORPUSCULAR HEMOGLOBIN 25.4 pg (27.0-31.0); MEAN CORPUSCULAR HGB CONC 32.5 g/dL (32.0-36.0); MEAN CORPUSCULAR VOLUME 78.2 fL (81.0-99.0); MEAN PLATELET VOLUME 7.6 fL (7.9-10.8); MONOCYTES # (AUTO) 0.5 10^3/uL (0.0-1.0); NEUTROPHILS # (AUTO) 6.2 10^3/uL (1.5-6.6); NEUTROPHILS % (AUTO) 78.5 %; PLT - PLATELET COUNT 385 10^3/uL (130-450); RED BLOOD COUNT 4.28 10^6/uL (4.20-5.40); RED CELL DISTRIBUTION WIDTH 18.3 % (12.0-15.0)
[2018-04-15 13:09] LABS: CALCIUM 8.4 mg/dL (8.5-10.3); CREATININE 3.4 mg/dL (0.4-1.0)
== END 2018-04-15 11:51 ==
LOC: LAB.R 11:50
DX: I50.9 Heart failure, unspecified (principal); D64.9 Anemia, unspecified
CPT/HCPCS: 80048; 82728; 85025

== ENCOUNTER 2018-04-21 11:41 | Outpatient (CLI) | payer MEDICARE, OTHER | END 2018-04-21 11:42 | disposition home or self-care (01) | LOC: LAB.R 11:41 | DX: A04.72 Enterocolitis due to Clostridium difficile, not specified as recurrent (principal) | CPT/HCPCS: 87493 ==

== ENCOUNTER 2018-04-28 10:12 | Outpatient (CLI) | payer MEDICARE, OTHER ==
[2018-04-28 11:42] LABS: CALCIUM 8.2 mg/dL (8.5-10.3); CREATININE 2.7 mg/dL (0.4-1.0)
== END 2018-04-28 10:13 | disposition home or self-care (01) ==
LOC: LAB.R 10:12
DX: N18.9 Chronic kidney disease, unspecified (principal)
CPT/HCPCS: 80048

== ENCOUNTER 2018-05-23 08:00 | Outpatient (CLI) | payer MEDICARE, OTHER | END 2018-05-23 23:59 | disposition home or self-care (01) | LOC: LAB.R 08:00 | PROVIDERS: ATTEND Family Medicine | DX: A04.72 Enterocolitis due to Clostridium difficile, not specified as recurrent (principal) | CPT/HCPCS: 87493 ==

== ENCOUNTER 2018-06-14 08:00 | Outpatient (CLI) | payer MEDICARE, OTHER ==
[2018-06-14 16:44] LABS: BASOPHILS # (AUTO) 0.1 10^3/uL (0.0-0.1); BASOPHILS % (AUTO) 1.3 %; EOSINOPHILS # (AUTO) 0.3 10^3/uL (0.0-0.7); EOSINOPHILS % (AUTO) 3.6 %; HGB - HEMOGLOBIN 9.9 g/dL (12.0-16.0); LYMPHOCYTES # (AUTO) 2.4 10^3/uL (1.5-3.5); LYMPHOCYTES % (AUTO) 26.6 %; MEAN CORPUSCULAR HEMOGLOBIN 26.2 pg (27.0-31.0); MEAN CORPUSCULAR HGB CONC 32.3 g/dL (32.0-36.0); MEAN PLATELET VOLUME 7.6 fL (7.9-10.8); MONOCYTES # (AUTO) 0.8 10^3/uL (0.0-1.0); MONOCYTES % (AUTO) 9.2 %; NEUTROPHILS # (AUTO) 5.4 10^3/uL (1.5-6.6); NEUTROPHILS % (AUTO) 59.3 %; PLT - PLATELET COUNT 443 10^3/uL (130-450); RED CELL DISTRIBUTION WIDTH 20.6 % (12.0-15.0); WHITE BLOOD COUNT 9.1 x10^3/uL (4.8-10.8)
[2018-06-14 16:51] LABS: ALBUMIN 3.2 g/dL (3.2-5.5); ALBUMIN/GLOBULIN RATIO 0.9 (1.0-2.2); BILIRUBIN,TOTAL 0.5 mg/dL (0.2-1.0); CALCIUM 8.1 mg/dL (8.5-10.3); CREATININE 2.7 mg/dL (0.4-1.0); TOTAL PROTEIN 6.9 g/dL (6.7-8.2)
[2018-06-14 20:28] LABS: PLATELET MORPHOLOGY NORMAL APPEARANCE (NORMAL)
[2018-06-14 20:29] LABS: PLATELET ESTIMATE, MANUAL NORMAL (130-450,000) (NORMAL)
== END 2018-06-14 23:59 | disposition home or self-care (01) ==
LOC: LAB.R 08:00
DX: E11.9 Type 2 diabetes mellitus without complications (principal); R68.89 Other general symptoms and signs
CPT/HCPCS: 80053; 85025

== ENCOUNTER 2018-06-29 08:00 | Outpatient (CLI) | payer MEDICARE, OTHER ==
[2018-06-29 19:43] LABS: CREATININE 2.8 mg/dL (0.4-1.0)
== END 2018-06-29 23:59 | disposition home or self-care (01) ==
LOC: LAB.R 08:00
DX: E87.6 Hypokalemia (principal)
CPT/HCPCS: 80048

== ENCOUNTER 2018-07-29 08:00 | Outpatient (CLI) | payer MEDICARE, OTHER ==
[2018-07-29 14:09] LABS: CALCIUM 8.4 mg/dL (8.5-10.3); CREATININE 2.2 mg/dL (0.4-1.0)
== END 2018-07-29 23:59 | disposition home or self-care (01) ==
LOC: LAB.R 08:00
DX: N18.9 Chronic kidney disease, unspecified (principal)
CPT/HCPCS: 80048

== ENCOUNTER 2018-08-05 08:20 | Outpatient (CLI) | payer MEDICARE, OTHER ==
[2018-08-06 09:20] LABS: CREATININE,URINE 80.5 mg/dL; PROTEIN/CREATININE RATIO,URINE 0.5 (<=0.2)
[2018-08-06 11:11] LABS: CALCIUM 8.1 mg/dL (8.5-10.3); CREATININE 2.2 mg/dL (0.4-1.0)
[2018-08-06 11:17] LABS: HGB - HEMOGLOBIN 9.3 g/dL (12.0-16.0); MEAN CORPUSCULAR HEMOGLOBIN 27.5 pg (27.0-31.0); MEAN CORPUSCULAR HGB CONC 32.5 g/dL (32.0-36.0); MEAN CORPUSCULAR VOLUME 84.8 fL (81.0-99.0); MEAN PLATELET VOLUME 7.9 fL (7.9-10.8); RED BLOOD COUNT 3.36 10^6/uL (4.20-5.40); RED CELL DISTRIBUTION WIDTH 16.1 % (12.0-15.0); WHITE BLOOD COUNT 8.3 x10^3/uL (4.8-10.8)
== END 2018-08-05 23:59 | disposition home or self-care (01) ==
LOC: LAB.R 08:20
DX: N05.9 Unspecified nephritic syndrome with unspecified morphologic changes (principal); D63.1 Anemia in chronic kidney disease; R80.9 Proteinuria, unspecified
CPT/HCPCS: 80048; 82570; 84156; 85027

== ENCOUNTER 2018-08-12 14:07 | Outpatient (CLI) | payer MEDICARE, OTHER ==
[2018-08-12 16:17] LABS: BASOPHILS # (AUTO) 0.1 10^3/uL (0.0-0.1); EOSINOPHILS # (AUTO) 0.5 10^3/uL (0.0-0.7); EOSINOPHILS % (AUTO) 4.9 %; HGB - HEMOGLOBIN 9.6 g/dL (12.0-16.0); LYMPHOCYTES # (AUTO) 1.4 10^3/uL (1.5-3.5); LYMPHOCYTES % (AUTO) 14.2 %; MEAN CORPUSCULAR HEMOGLOBIN 27.5 pg (27.0-31.0); MEAN CORPUSCULAR HGB CONC 32.1 g/dL (32.0-36.0); MEAN CORPUSCULAR VOLUME 85.4 fL (81.0-99.0); MEAN PLATELET VOLUME 7.3 fL (7.9-10.8); MONOCYTES # (AUTO) 0.5 10^3/uL (0.0-1.0); MONOCYTES % (AUTO) 5.2 %; NEUTROPHILS # (AUTO) 7.4 10^3/uL (1.5-6.6); NEUTROPHILS % (AUTO) 74.7 %; PLT - PLATELET COUNT 423 10^3/uL (130-450); RED BLOOD COUNT 3.51 10^6/uL (4.20-5.40); RED CELL DISTRIBUTION WIDTH 15.4 % (12.0-15.0); WHITE BLOOD COUNT 9.9 x10^3/uL (4.8-10.8)
[2018-08-12 16:22] LABS: CALCIUM 8.3 mg/dL (8.5-10.3); CREATININE 2.5 mg/dL (0.4-1.0)
== END 2018-08-12 23:59 ==
LOC: LAB.R 14:07
DX: I50.22 Chronic systolic (congestive) heart failure (principal); D64.9 Anemia, unspecified
CPT/HCPCS: 80048; 82728; 85025

== ENCOUNTER 2018-08-26 07:15 | Outpatient (CLI) | payer MEDICARE, OTHER ==
[2018-08-26 08:11] LABS: CALCIUM 8.4 mg/dL (8.5-10.3); CREATININE 2.1 mg/dL (0.4-1.0)
== END 2018-08-26 23:59 | disposition home or self-care (01) ==
LOC: LAB.R 07:15
DX: N18.9 Chronic kidney disease, unspecified (principal); I48.91 Unspecified atrial fibrillation
CPT/HCPCS: 80048

== ENCOUNTER 2018-09-08 08:00 | Outpatient (CLI) | payer MEDICARE, OTHER ==
[2018-09-08 08:41] LABS: CALCIUM 8.3 mg/dL (8.5-10.3); CREATININE 2.1 mg/dL (0.4-1.0)
== END 2018-09-08 23:59 | disposition home or self-care (01) ==
LOC: LAB.R 08:00
DX: I50.22 Chronic systolic (congestive) heart failure (principal); D64.9 Anemia, unspecified
CPT/HCPCS: 80048; 82728

== ENCOUNTER 2018-10-06 15:30 | Outpatient (CLI) | payer MEDICARE, OTHER ==
[2018-10-06 16:11] LABS: CALCIUM 8.6 mg/dL (8.5-10.3); CREATININE 2.3 mg/dL (0.4-1.0)
== END 2018-10-06 23:59 | disposition home or self-care (01) ==
LOC: LAB.R 15:30
DX: I10 Essential (primary) hypertension (principal)
CPT/HCPCS: 80048

== ENCOUNTER 2018-11-02 15:30 | Outpatient (CLI) | payer MEDICARE, OTHER ==
[2018-11-02 17:14] LABS: CALCIUM 8.7 mg/dL (8.5-10.3); CREATININE 2.3 mg/dL (0.4-1.0)
== END 2018-11-02 23:59 | disposition home or self-care (01) ==
LOC: LAB.R 15:30
DX: I10 Essential (primary) hypertension (principal)
CPT/HCPCS: 80048

== ENCOUNTER 2019-12-19 08:00 | Outpatient (CLI) | payer MEDICARE, OTHER ==
[2019-12-19 15:43] LABS: BASOPHILS % (AUTO) 0.5 %; EOSINOPHILS # (AUTO) 0.3 10^3/uL (0.0-0.7); EOSINOPHILS % (AUTO) 4.3 %; HGB - HEMOGLOBIN 10.3 g/dL (12.0-16.0); LYMPHOCYTES % (AUTO) 13.1 %; MEAN CORPUSCULAR HEMOGLOBIN 28.9 pg (27.0-31.0); MEAN CORPUSCULAR HGB CONC 30.7 g/dL (32.0-36.0); MEAN CORPUSCULAR VOLUME 94.1 fL (81.0-99.0); MEAN PLATELET VOLUME 9.4 fL (7.9-10.8); MONOCYTES # (AUTO) 0.5 10^3/uL (0.0-1.0); MONOCYTES % (AUTO) 6.8 %; NEUTROPHILS # (AUTO) 5.5 10^3/uL (1.5-6.6); NEUTROPHILS % (AUTO) 74.8 %; PLT - PLATELET COUNT 393 10^3/uL (130-450); RED BLOOD COUNT 3.57 10^6/uL (4.20-5.40); RED CELL DISTRIBUTION WIDTH 14.2 % (12.0-15.0); WHITE BLOOD COUNT 7.4 x10^3/uL (4.8-10.8)
[2019-12-19 16:06] LABS: CALCIUM 8.4 mg/dL (8.5-10.3); CREATININE 2.3 mg/dL (0.4-1.0)
== END 2019-12-19 23:59 | disposition home or self-care (01) ==
LOC: LAB.R 08:00
DX: I50.9 Heart failure, unspecified (principal); I48.91 Unspecified atrial fibrillation
CPT/HCPCS: 80048; 82728; 85025

== ENCOUNTER 2020-01-07 08:00 | Outpatient (CLI) | payer MEDICARE, OTHER ==
[2020-01-07 12:43] LABS: CALCIUM 8.4 mg/dL (8.5-10.3); CREATININE 2.5 mg/dL (0.4-1.0)
== END 2020-01-07 23:59 | disposition home or self-care (01) ==
LOC: LAB.R 08:00
DX: D63.1 Anemia in chronic kidney disease (principal)
CPT/HCPCS: 80048

== ENCOUNTER 2020-02-03 17:18 | Outpatient (CLI) | payer MEDICARE, OTHER ==
[2020-02-03 18:12] LABS: BASOPHILS % (AUTO) 0.6 %; EOSINOPHILS # (AUTO) 0.3 10^3/uL (0.0-0.7); EOSINOPHILS % (AUTO) 5.1 %; HGB - HEMOGLOBIN 10.6 g/dL (12.0-16.0); LYMPHOCYTES # (AUTO) 0.8 10^3/uL (1.5-3.5); MEAN CORPUSCULAR HEMOGLOBIN 29.4 pg (27.0-31.0); MEAN CORPUSCULAR HGB CONC 30.4 g/dL (32.0-36.0); MEAN CORPUSCULAR VOLUME 96.7 fL (81.0-99.0); MEAN PLATELET VOLUME 9.6 fL (7.9-10.8); MONOCYTES # (AUTO) 0.7 10^3/uL (0.0-1.0); MONOCYTES % (AUTO) 10.4 %; NEUTROPHILS # (AUTO) 4.7 10^3/uL (1.5-6.6); NEUTROPHILS % (AUTO) 71.4 %; PLT - PLATELET COUNT 344 10^3/uL (130-450); RED BLOOD COUNT 3.61 10^6/uL (4.20-5.40); RED CELL DISTRIBUTION WIDTH 14.8 % (12.0-15.0); WHITE BLOOD COUNT 6.5 x10^3/uL (4.8-10.8)
[2020-02-03 18:27] LABS: ALBUMIN 3.6 g/dL (3.2-5.5); ALBUMIN/GLOBULIN RATIO 1.1 (1.0-2.2); BILIRUBIN,TOTAL 0.5 mg/dL (0.2-1.0); CALCIUM 8.3 mg/dL (8.5-10.3); CREATININE 2.5 mg/dL (0.4-1.0)
== END 2020-02-03 23:59 | disposition home or self-care (01) ==
LOC: LAB.R 17:18
DX: N18.9 Chronic kidney disease, unspecified (principal); D63.1 Anemia in chronic kidney disease; D64.9 Anemia, unspecified
CPT/HCPCS: 80053; 85025

== ENCOUNTER 2020-03-08 08:00 | Outpatient (CLI) | payer MEDICARE, OTHER ==
[2020-03-08 15:26] LABS: CALCIUM 8.3 mg/dL (8.5-10.3); CREATININE 2.9 mg/dL (0.4-1.0)
== END 2020-03-08 23:59 | disposition home or self-care (01) ==
LOC: LAB.R 08:00
DX: N18.4 Chronic kidney disease, stage 4 (severe) (principal); D63.1 Anemia in chronic kidney disease; E78.5 Hyperlipidemia, unspecified
CPT/HCPCS: 80048

== ENCOUNTER 2020-03-13 08:00 | Outpatient (CLI) | payer MEDICARE, OTHER ==
[2020-03-13 17:05] LABS: CALCIUM 8.3 mg/dL (8.5-10.3); CREATININE 2.3 mg/dL (0.4-1.0)
== END 2020-03-13 23:59 | disposition home or self-care (01) ==
LOC: LAB.R 08:00
PROVIDERS: ATTEND Family Medicine
DX: I13.0 Hypertensive heart and chronic kidney disease with heart failure and stage 1 through stage 4 chronic kidney disease, or unspecified chronic kidney disease (principal); I50.84 End stage heart failure; N18.4 Chronic kidney disease, stage 4 (severe); E11.22 Type 2 diabetes mellitus with diabetic chronic kidney disease
CPT/HCPCS: 80048

== ENCOUNTER 2020-03-14 08:00 | Outpatient (CLI) | payer MEDICARE, OTHER ==
[2020-03-14 19:51] LABS: CALCIUM 8.4 mg/dL (8.5-10.3); CREATININE 2.4 mg/dL (0.4-1.0)
== END 2020-03-14 23:59 | disposition home or self-care (01) ==
LOC: LAB.R 08:00
PROVIDERS: ATTEND Family Medicine
DX: E78.5 Hyperlipidemia, unspecified (principal)
CPT/HCPCS: 80048

== ENCOUNTER 2020-03-28 13:45 | Outpatient (CLI) | payer MEDICARE, OTHER ==
--- NOTE | 2020-03-28 17:19 | CONSULTATION NOTE ---
Palliative Care Consultation - Referral Referring Provider: Dr. Luigi Fernández Time of Visit: [id number] Referral setting: Residential Facility Referral Reason: Dementia/Anxiety/CHF - Information Sources Records reviewed: Previous records reviewed History/Review of Systems obtained from: Patient, Family (daughter, Niki), Nursing Exam limitations: Clinical condition (Cognitive impairment due to dementia) - History of Present Illness Brief History of Present Illness: This is an 79-year-old female who was seen and evaluated today for initial palliative care consultation with her in her room at [facility] With her daughter/DPLisbet MARCUS presents for evaluation due to dementia, anxiety and congestive heart failure. The patient has a history of congestive heart failure that has been present for at least the last 5 years per her daughter's report. The daughter reports that in the past providers have attempted to take the patient off diuretic therapy that has resulted in exacerbation. The daughter reports that the patient weighs the most that she has in subsequent years due to her edema. She presently weighs 224 pounds. In the last month she has ranged between 217 -2 24 pounds. She is on daily weights. She has a history of chronic kidney disease stage IV that limits titration of her diuretic therapy. Her torsemide was increased for her lower extremity edema but subsequently was reduced from 40 mg to 20 mg on March 10 due to her worsening renal function. She presently is receiving Tubigrip to her bilateral lower extremities. The daughter reports ports noted weeping at times to her lower extremities. She has also developed venous stasis ulcers to her lower extremities and are presently undergoing routine wound care. The staff also report that the patient has a hearty appetite. She consumes all of her meals and forgets that she has eaten and will request for snacks between meals. At one point small portions were trialed but this was not effective as the patient's was resistant to the smaller portions and was asking for additional food from her family. The patient has not resided at home for approximately the last 2 years. She was in [facility] approximately 2 years ago. She then transition to an adult family home in [place] closer to her daughter but subsequently she fell and sustained a hip fracture. After that hip fracture she stayed at 2 different nursing facilities which subsequently closed and the patient did have coronavirus and then transitioned back to [facility] at [facility]. She does not have a history of anxiety in the past per the daughter's report. However, both the daughter and staff report that the patient has underlying anxiety presently. The patient does not like to be left alone specifically in the evenings. She wishes to have the door to her room open. At times she feels like she is unable to get an adequate breath and is able to be calmed down by methods from her daughter and staff as well as breathing techniques. And then subsequently will be calm. The patient's daughter reports that she has been on lorazepam in the past and has tolerated this well. The patient herself is seen out of bed in her wheelchair, obese, legs in a dependent position and are wrapped. She is easily engaged and able to discuss her various books that are present in her room. During the course of evaluation the patient became anxious reporting that she was and able to breathe. Pulse oximetry demonstrated 94% on room air and assisted the patient with calming breathing techniques with resolution of her underlying anxiety. Medical/Surgical History - Past Medical History Cardiovascular: reports: Congestive heart failure, Hypertension, Atrial fibrillation Respiratory: reports: Shortness of breath Neuro: Alzhiemer's, Dementia Neuro: reports: Dementia Endocrine/Autoimmune: reports: Type 2 diabetes SALT LIFTER: reports: Other (post-SARA) : reports: Incontinence, Renal insuffiency (CKD Stage IV) HEENT: reports: None (Per hx on Zoloft ) Psych: reports: Depression Musculoskeletal: reports: Fatigue Derm: reports: Other (Dermatitis with pruritus and excoriations ) MRSA Hx?: No - Past Surgical History General: reports: Other /SALT LIFTER: reports: Hysterectomy - Substance History Use: Uses substance without health or social issues: NONE Social History - Living Situation Living arrangement: [facility]: The patient is . The patient's lives in [place] in a 2 bedroom condo. The patient's is undergoing a biopsy for his own health later is week. The patient's daughter lives in [facility] and is working remotely and is very involved in her mother's care. The facility despite coronavirus, is allowing for the patient's daughter to have 1 hour visits with the patient 3 times a week at the facility. The patient's daughter, Lisbet is her DPOA with contact number [phone]. The patient also has a son that is not in involved in her care. On Thursday the patient underwent a [facility] evaluation to determine if any caregiving support may be available if the patient's family decided to bring her home and provide her care within that setting. The patient is an avid reader and loves romance novels which are present throughout her room. Family History - Family History Family History: Mother: , Father: Medications/Allergies - Medications Home Medications: Ambulatory Orders Medication Instructions Recorded Confirmed Metoprolol Succinate 200 mg PO DAILY 08/28/17 03/28/20 Acetaminophen [Tylenol] 1,000 mg PO TID 03/28/20 03/28/20 Bisacodyl Supp [Dulcolax Supp] 10 mg RC DAILY PRN 03/28/20 03/28/20 Cholecalciferol (Vitamin D3) 2,000 unit PO DAILY 03/28/20 03/28/20 [Vitamin D3] Ferrous Gluconate 1 tab PO DAILY 03/28/20 03/28/20 Hydralazine HCl 25 mg ORAL TID 03/28/20 03/28/20 Magnesium Hydroxide [Milk of 30 ml PO DAILY PRN 03/28/20 03/28/20 Magnesia] Melatonin 3 mg PO QPM 03/28/20 03/28/20 Miconazole Nitrate 1 applic TP DAILY MDD under 03/28/20 03/28/20 breasts and abdomen Multivitamin 1 tab PO DAILY 03/28/20 03/28/20 Potassium Chloride 10 meq PO DAILY 03/28/20 03/28/20 Senna [Senokot] 2 tab PO DAILY 03/28/20 03/28/20 Senna [Senokot] 2 tab PO DAILY PRN MDD if MOM 03/28/20 03/28/20 ineffective Torsemide 20 mg PO DAILY 03/28/20 03/28/20 Trazodone HCl 25 mg PO QPM 03/28/20 03/28/20 Warfarin [Coumadin] 3.5 mg PO DAILY 03/28/20 03/28/20 dilTIAZem HCl [Diltiazem 24Hr ER 180 mg PO DAILY 03/28/20 03/28/20 (Cd)] polyethylene glycoL 3350 [Miralax] 17 g PO BID 03/28/20 03/28/20 - Allergies Allergies/Adverse Reactions: Allergies Allergy/AdvReac Type Severity Reaction Status Date / Time chocolate flavor Allergy Unknown Verified 03/28/20 18:14 Review of Systems - Constitutional Constitutional: reports: Fatigue, Weight gain - Eyes Eyes: reports: Corrective lenses - Ears, Nose & Throat Ears, Nose & Throat: reports: Dentures. denies: Dry mouth - Cardiovascular Cardiovascular: reports: Edema. denies: Palpitations - Respiratory Respiratory: reports: Other (reported feeling SOB intermittently, possibly due to anxiety). denies: Cough - Gastrointestinal Gastrointestinal: reports: Constipation (controlled), Good appetite. denies: Abdominal pain, Vomiting - Genitourinary Genitourinary: reports: Incontinence. denies: Dysuria - Musculoskeletal Musculoskeletal: reports: Assistive devices, Transfer issues. denies: Joint pain - Integumentary Integumentary: reports: Other (venous stasis ulcers BLE) - Neurological Neurological: reports: General weakness, Memory problems - Psychiatric Psychiatric: reports: Depression, Anxiety - Endocrine Endocrine: reports: Diabetes type 2 - Hematologic/Lymphatic Hematologic/Lymph: Anemia - All Other Systems All Other Systems: reports: Reviewed and negative (ROS limited as patient is a poor historian due to dementia. ROS obtained from nursing and family.) Physical Exam - Vital Signs Temperature: 97.3 C Pulse Rate: 75 Respiratory Rate: 18 O2 Saturation: 94 (on RA at rest) Blood Pressure: 108/61 (left wrist cuff) - Physical Exam General Appearance: positive: No acute distress, Alert, Other (OOB in wheelchair) Eyes Bilateral: positive: Other (+corrective lenses) ENT: positive: No signs of dehydration, Other (upper dentures) Neck: positive: Trachea midline Cardiovascular: positive: Regular rate & rhythm, Other (distant heart sounds due to body habitus) Respiratory: positive: No respiratory distress, Breath sounds nml. negative: Wheezes, Rales Abdomen: positive: Non-tender, Soft, Nml bowel sounds, Obese Skin: positive: Other (compression wraps to BLE with dressings--please see nursing notes for full details regarding wounds; Dressing to left upper forearm C/D/I) Extremities: positive: Pedal edema (+2 pitting pedal to below knee noted) Neurologic/Psychiatric: positive: Oriented x3 (STM deficits noted), Depressed mood/affect, Other (demonstrated anxiety at points during examination). negative: Disoriented to place (aware that she is in a half-way in [place]) Palliative Care - POLST Patient has POLST: Yes POLST Status: DNR, Comfort Measures Pain: No pain Feelings of wellbeing/Perceived Quality of Life: Poor Sleep: Variable sleep pattern Constipation: No, Managed Performance Status: PPS 50% - Palliative Care Discussion: The patient has had a steady decline over the last several years that has resulted in acute worsening of her lower extremity edema on top of her chronic kidney disease stage IV. Her renal function overall has remained stable over the last 2 years but with increase in her diuretic therapy to treat her congestive heart failure this leads to a vicious cycle of walking a fine line with diuresing her for her comfort versus further impacting her kidneys. Her daughter/DPOA, Lisbet is aware of the patient's renal function and if the patient were to have end-stage renal disease she would not wish to pursue hemodialysis for the patient. The patient has been displaying evidence of anxiety which has not been her previous baseline. She has been on lorazepam in the past and has tolerated it well. The patient's daughter is looking to have assistance with improved quality of life for the patient. The patient herself is increasingly expressing that she wishes to leave the facility and is fearful that she will in this place. [facility] is scheduled to evaluate the patient and this may be helpful from a psychological counseling standpoint. The patient's daughter has been working with the facility to optimize the patient's level of care. The patient's daughter is very involved and is a significant advocate for the patient. The patient's daughter recognizes that the patient has declined physically and has not been home in the last 2 years however, they he are exploring options to potentially have the patient come home with caregiving support. The patient has recently been assessed by [facility]. The patient's daughter would assist the patient's as need be for caregiving support. Ideally however, the patient's daughter would wish for the patient to remain within the facility. Results - Lab Results Lab results reviewed: Yes Lab and Imaging Results: 03/14/2020 Sodium 141, potassium 4.2, BUN 63, creatinine 2.4, GFR 19 Impression and Recommendations - Palliative Care Impression: This is a karen 79-year-old female who has had a series of Unfortunate events regarding her living arrangements with congestive heart failure, dementia and anxiety. The patient has had noted weight gain that has recently stabilized. She is presently being managed by her PCP walking a line to ensure that she is comfortable with her volume status but not further impairing her renal function due to her history of chronic kidney disease stage IV. Presently, the patient's greatest symptom burden is in relation to her anxiety. Her daughter and the staff at times are able to alleviate panic however, the patient would benefit from further management. Palliative care to continue to provide support for symptom management, anticipatory guidance and exploration of goals of care and supportive listening for the daughter. Recommendations/Counseling Done: 1. Anxiety. Patient demonstrates evidence of anxiety likely multifactorial due to her body habitus and underlying edema contributing to reported shortness of breath as well as actual underlying anxiety that can work its way up to panic. Discussed at length with the daughter/DPOA initiating SSRI therapy and in agreement to trial sertraline given the patient's cardiac history at 25 mg once daily. Reviewed purpose, dose, and side effects of sertraline and in agreement to proceed. Daughter/DPOA aware that it may take 2 to 4 weeks to see benefit of the medication. In the interim we will also initiate Xanax 0.25 mg 3 times daily as needed for breakthrough anxiety x14 days. We will continue evaluation from [facility] for further supplemental support for the patient's underlying anxiety. Request staff to obtain PHQ9 and GAD7 onsite for baseline and monitoring. We will continue to monitor and adjust medication regimen as needed. 2. Weight gain. Recently stabilized. Multifactorial with the patient's underlying congestive heart failure, Alzheimer's dementia and being unaware that she has eaten and and sedentary lifestyle. Continue to monitor daily weights. Consider reintroducing small portions in the future with the daughter and would continue multivitamin supplementation. 3. Congestive heart failure. Present weight 224 pounds. Continue to miguel to my 20 mg daily with compression with Tubigrip's to the bilateral lower extremities. Continue to encourage elevation to lower extremities when at rest. To continue to be followed by PCP with monitoring of patient's chronic kidney disease stage IV. 4. Chronic kidney disease stage IV. Likely multifactorial due to underlying cardiac history as well as history of diabetes mellitus type 2. Present creatinine 2.4 and GFR 19. Daughter aware of weighing benefits versus burdens of upping the patient's furosemide diuretic therapy and further pushing the patient's kidneys. Ultimately, the patient's daughter wishes for the patient to be comfortable. If the patient were to evolve into end-stage renal disease the patient's daughter/DPOA and family would not wish to pursue hemodialysis therapy and would wish to focus on comfort. Avoid nephrotoxic medications. 5. Alzheimer's dementia. Chronic. Progressive. Patient on no disease mod ifying agents. Patient has a history of falls. Staff report underlying anxiety. Please see diagnosis anxiety for further details. Given the patient's advanced age and chronic comorbidities a gradual decline is expected. 6. Advanced care planning. Patient has POLST in place as DN AR with comfort measures. Patient's daughter/DPOA, Lisbet is a strong advocate for the patient. Ultimately, the patient's daughter wishes to optimize the patient's quality of life and comfort within the facility environment. If this is not feasible then the daughter wishes to pursue taking the patient home with caregiving support. The patient's daughter wishes to avoid hospitalization due to its disruptive affect upon the patient. We will continue to tease out and explore goals of care moving forward the patient's daughter. Supportive listening provided. Time Spent: Total time spent 85 minutes with greater than 50% of this spent in counseling and coordination of care with the patient, daughter Lisbet and nursing staff; review of palliative and hospice philosophies; exploration of goals of care; review of s/s of CHF and UTI; review of pain and symptom management and anticipatory guidance. Updated patient's PCP, Dr. Fernández regarding POC. Disclaimer: The chart note was formulated using voice recognition technology and unfortunately sound alike errors may occur.
== END 2020-03-28 13:46 | disposition home or self-care (01) ==
LOC: PC 13:45
PROVIDERS: ATTEND Nurse Practitioner Family
DX: Z51.5 Encounter for palliative care (principal); F41.9 Anxiety disorder, unspecified; E11.22 Type 2 diabetes mellitus with diabetic chronic kidney disease; I13.0 Hypertensive heart and chronic kidney disease with heart failure and stage 1 through stage 4 chronic kidney disease, or unspecified chronic kidney disease; N18.4 Chronic kidney disease, stage 4 (severe); I50.9 Heart failure, unspecified; R63.4 Abnormal weight loss; G30.9 Alzheimer's disease, unspecified; F02.80 Dementia in other diseases classified elsewhere, unspecified severity, without behavioral disturbance, psychotic disturbance, mood disturbance, and anxiety; I48.91 Unspecified atrial fibrillation; Z79.899 Other long term (current) drug therapy; Z79.01 Long term (current) use of anticoagulants; Z66 Do not resuscitate
CPT/HCPCS: 99306

== ENCOUNTER 2020-04-11 10:10 | Outpatient (CLI) | payer MEDICARE, OTHER ==
--- NOTE | 2020-04-11 16:07 | CONSULTATION NOTE ---
Palliative Care Follow Up - Referral Referring Provider: Dr. Luigi Fernández Time of Visit: Initiated 1015 Referral setting: Nursing Home Facility Referral Reason: Anxiety/LE edema/Dementia - Information Sources Records reviewed: Previous records reviewed History/Review of Systems obtained from: Patient, Nursing Exam limitations: Clinical condition (Cognitive impairment due to dementia) - History of Present Illness Update Brief HPI Update: This is an 79-year-old female who was seen in follow-up today at [facility] in follow-up due to her anxiety, dementia and lower extremity edema. The patient presently weighs 220 pounds last obtained in late March 2020. She is order for weekly weights but last one reported is March 30, 2020 of 220 pounds. She continues on diuretic therapy daily with furosemide 20 mg and Unna boots to her lower extremities. She has developed venous stasis ulcers to her lower extremities due to venous insufficiency and is undergoing routine wound care. The patient's is encouraged to transition to her recliner chair during the daytime for elevation of her lower legs but she often declines opting to stay in her wheelchair where her legs are in a dependent position. However, at the present time the patient is not displaying signs or symptoms of volume overload and much of her present noted weight is due to her hearty appetite in, immobility, and inactivity. Last week, the patient's daughter was reporting that the patient was beginning to pick at her skin more routinely. This is been a process problem of the patient's which had previously been fairly well controlled. The staff today, report that the patient's picking appears to be stable. On last evaluation by this [facility] the patient was initiated on sertraline 25 mg daily with Xanax as needed for the patient's demonstration of underlying anxiety. This has overall improved the patient's underlying anxiety with the initiation of sertraline. The staff report to administration of the as needed Xanax typically once per day. The patient has previously been on lorazepam in the past. The patient today, displays no signs or symptoms of acute anxiety. The patient is seen out of bed in her wheelchair sitting by the window heater, obese, legs in a dependent position and wrapped in Unna boot dressing without saturation. Past Medical History: Patient has a past medical history of congestive heart failure, hypertension, atrial fibrillation on anticoagulation, venous insufficiency, venous stasis ulcers, diabetes mellitus type 2, anxiety, depression, dermatitis with pruritus, CKD stage IV. Social History - Living Situation Living arrangement: [facility] Support [facility]: The patient has not resided in her home for approximately the last 2 years. She is . Her lives in [place] in a 2 bedroom condo. The patient's daughter, Lisbet, lives in [facility] and is working remotely and is very involved in the patient's care. The patient's daughter, Lisbet is her DPOA with contact number [phone]. Medications/Allergies - Medications Home Medications: Ambulatory Orders Medication Instructions Recorded Confirmed Metoprolol Succinate 200 mg PO DAILY 08/28/17 03/28/20 Acetaminophen [Tylenol] 1,000 mg PO TID 03/28/20 03/28/20 Bisacodyl Supp [Dulcolax Supp] 10 mg RC DAILY PRN 03/28/20 03/28/20 Cholecalciferol (Vitamin D3) 2,000 unit PO DAILY 03/28/20 03/28/20 [Vitamin D3] Ferrous Gluconate 1 tab PO DAILY 03/28/20 03/28/20 Hydralazine HCl 25 mg ORAL TID 03/28/20 03/28/20 Magnesium Hydroxide [Milk of 30 ml PO DAILY PRN 03/28/20 03/28/20 Magnesia] Melatonin 3 mg PO QPM 03/28/20 03/28/20 Miconazole Nitrate 1 applic TP DAILY MDD under 03/28/20 03/28/20 breasts and abdomen Multivitamin 1 tab PO DAILY 03/28/20 03/28/20 Potassium Chloride 10 meq PO DAILY 03/28/20 03/28/20 Senna [Senokot] 2 tab PO DAILY 03/28/20 03/28/20 Senna [Senokot] 2 tab PO DAILY PRN MDD if MOM 03/28/20 03/28/20 ineffective Torsemide 20 mg PO DAILY 03/28/20 03/28/20 Trazodone HCl 25 mg PO QPM 03/28/20 03/28/20 Warfarin [Coumadin] 3 mg PO DAILY 03/28/20 03/28/20 dilTIAZem HCl [Diltiazem 24Hr ER 180 mg PO DAILY 03/28/20 03/28/20 (Cd)] polyethylene glycoL 3350 [Miralax] 17 g PO BID 03/28/20 03/28/20 Alprazolam [Xanax] 1 - 2 tab PO Q8H PRN 04/11/20 04/11/20 Gelatin Capsule 1 cap PO BID 04/11/20 Sertraline [Zoloft] 50 mg PO DAILY 04/11/20 04/11/20 - Allergies Allergies/Adverse Reactions: Allergies Allergy/AdvReac Type Severity Reaction Status Date / Time chocolate flavor Allergy Unknown Verified 03/28/20 18:14 Review of Systems - Constitutional Constitutional: reports: Fatigue, Other (last weight 220lb) - Eyes Eyes: reports: Corrective lenses - Ears, Nose & Throat Ears, Nose & Throat: reports: Dentures - Cardiovascular Cardiovascular: reports: Edema. denies: Chest pain - Respiratory Respiratory: denies: Cough - Gastrointestinal Gastrointestinal: reports: Constipation (controlled), Good appetite. denies: Abdominal pain - Genitourinary Genitourinary: reports: Incontinence. denies: Dysuria - Musculoskeletal Musculoskeletal: reports: Assistive devices, Transfer issues. denies: Joint pain - Integumentary Integumentary: reports: Other (venous stasis ulcers BLE; skin picking history) - Neurological Neurological: reports: General weakness, Memory problems - Psychiatric Psychiatric: reports: Depression, Anxiety - Endocrine Endocrine: reports: Diabetes type 2 - Hematologic/Lymphatic Hematologic/Lymph: Anemia - All Other Systems All Other Systems: reports: Reviewed and negative (ROS limited as patient is a poor historian due to dementia. ROS obtained from nursing and daughter/DPHayde MARCUSi.) Physical Exam - Vital Signs Pulse Rate: 98 O2 Saturation: 94 (on RA at rest) Blood Pressure: 125/60 (left wrist cuff) - Physical Exam General Appearance: positive: No acute distress, Alert, Other (OOB in wheelchair, obese) Eyes Bilateral: positive: Other (+corrective lenses) ENT: positive: No signs of dehydration Neck: positive: Trachea midline Cardiovascular: positive: Regular rate & rhythm, Other (distant heart sounds due to body habitus) Respiratory: positive: No respiratory distress, Breath sounds nml. negative: W heezes Abdomen: positive: Non-tender, Soft, Nml bowel sounds, Obese Skin: positive: Other (Unna boots to BLE with dressing dry--please see nursing notes for full details regarding wounds; three scabs noted to dorsal aspect of left hand with evidence of prior excoriation from scratching with no s/s of erythema or discharge.) Extremities: positive: Pedal edema (+BLE edema appears decreased from last visit) Neurologic/Psychiatric: positive: Oriented x3 (STM deficits noted), Other (calm today with stoic affect) Palliative Care - POLST Patient has POLST: Yes POLST Status: DNR, Comfort Measures Pain: No pain - Palliative Care Discussion: The patient has had an improvement in her underlying anxiety since initiation of sertraline 25 mg daily. She continues to require approximately 1 administration of Xanax on a daily basis per nursing report. Reviewed with the patient's daughter/DPOA, the goal in order to have the patient's underlying anxiety controlled his that she would not require routine administration of Xanax and therefore would benefit from a dose adjustment of her sertraline for further control of her symptoms with the daughter in agreement. The patient has lower extremity edema due to congestive heart failure and venous insufficiency and has developed venous stasis ulcers to her lower extremities. She presently receives local wound care to the site with coban wraps for control of her lower extremity edema. Continues to remain a challenge and working with the patient to be agreeable for elevating her legs after meals or sitting in her recliner. Staff continue to and encourage these interventions for reduction of lower extremity edema. Her weight trends however, presently appears to be due to body habitus versus volume overload. The patient's daughter/DPOA expresses the desire for the patient to be when daily weights for in case diuretic therapy dosage needs to be adjusted. Impression and Recommendations - Palliative Care Impression: This is an 79-year-old female who presents with venous insufficiency with lower extremity edema and development of venous stasis ulcers, anxiety, CHF and dementia. The patient's weight gain has stabilized and she is presently at 2 2 0 pounds. No evidence of volume overload. The patient's underlying anxiety has improved with no development of a panic attack on evaluation. The patient's daughter continues to be a strong advocate for the patient. Palliative care to continue provide support for symptom management, anticipatory guidance and exploration of goals of care. Recommendations/Counseling Done: 1. Anxiety. Improved. Increase sertraline to 50 mg daily. The goal is for the patient to not require routine administration of Xanax. In the interim as the SSRI takes effect, continue Xanax 0.25 mg administer 1 to 2 tablets every 8 hours as needed for anxiety. Continue to provide supportive listening. We will continue to monitor and adjust medication regimen as needed. 2. Weight gain with lower extremity edema. Most recent weight is 2 2 0 pounds. No evidence of volume overload. The patient's weight gain appears to be multifactorial most specifically in regards to her sedentary lifestyle and desire to consume foods and forgetting that she has had a below due to her dementia. Reinitiate daily weights and request that PCP be notified if a weight gain of 2 pounds occurs. In the future, consider reintroducing small portions for further O weight management. 3. Venous insufficiency with venous stasis ulcers. History nursing notes for full details regarding venous stasis ulcers. Continue local wound care as ordered by PCP. Continue to monitor for signs and symptoms of infection. Continue to encourage the patient to elevate her lower extremities after meals and transfer to her recliner chair routine basis then using her wheelchair when her legs are in a dependent position. She will continue to require routine cueing giving her underlying dementia. 4. Pruritis with history of skin picking. No evidence of skin picking today. Request that facility apply house cream/lotion to patient's upper extremities daily as well as to her feet daily. 5. Dementia. Chronic. Progressive. Patient is on no disease modifying agents. Patient has a history of falls. Presently on Sertraline for control of anxiety. Given the patient's advanced age and chronic comorbidities a gradual decline is expected. Time Spent: CPT 90314 Plan of care reviewed with nursing staff as well as daughter/DPOA Lisbet, and PCP, Dr. Fernández with all parties verbalizing understanding and agreement. Provided supportive listening with the patient's daughter/DPOA over the phone and offered assistance with interventions on site at the facility. Disclaimer: The chart note was formulated using voice recognition technology and unfortunately sound alike errors may occur.
== END 2020-04-11 10:11 | disposition home or self-care (01) ==
LOC: PC 10:10
PROVIDERS: ATTEND Nurse Practitioner Family
DX: Z51.5 Encounter for palliative care (principal); F41.9 Anxiety disorder, unspecified; E66.9 Obesity, unspecified; R60.0 Localized edema; I87.2 Venous insufficiency (chronic) (peripheral); L29.9 Pruritus, unspecified; F03.90 Unspecified dementia, unspecified severity, without behavioral disturbance, psychotic disturbance, mood disturbance, and anxiety; I13.0 Hypertensive heart and chronic kidney disease with heart failure and stage 1 through stage 4 chronic kidney disease, or unspecified chronic kidney disease; I50.9 Heart failure, unspecified; N18.4 Chronic kidney disease, stage 4 (severe); I48.91 Unspecified atrial fibrillation; E11.22 Type 2 diabetes mellitus with diabetic chronic kidney disease; Z79.01 Long term (current) use of anticoagulants; Z79.899 Other long term (current) drug therapy; Z66 Do not resuscitate
CPT/HCPCS: 99309

== ENCOUNTER → 2020-04-13 | Outpatient (CLI) | payer MEDICARE, OTHER, MEDICAID ==
[2020-04-13 12:11] LABS: BASOPHILS % (AUTO) 0.4 %; EOSINOPHILS # (AUTO) 0.1 10^3/uL (0.0-0.7); EOSINOPHILS % (AUTO) 1.1 %; HGB - HEMOGLOBIN 11.3 g/dL (12.0-16.0); LYMPHOCYTES # (AUTO) 0.9 10^3/uL (1.5-3.5); LYMPHOCYTES % (AUTO) 10.5 %; MEAN CORPUSCULAR HEMOGLOBIN 28.5 pg (27.0-31.0); MEAN CORPUSCULAR HGB CONC 30.7 g/dL (32.0-36.0); MEAN CORPUSCULAR VOLUME 92.7 fL (81.0-99.0); MEAN PLATELET VOLUME 9.4 fL (7.9-10.8); MONOCYTES # (AUTO) 0.7 10^3/uL (0.0-1.0); MONOCYTES % (AUTO) 8.4 %; NEUTROPHILS # (AUTO) 6.6 10^3/uL (1.5-6.6); NEUTROPHILS % (AUTO) 79.2 %; PLT - PLATELET COUNT 398 10^3/uL (130-450); RED BLOOD COUNT 3.97 10^6/uL (4.20-5.40); RED CELL DISTRIBUTION WIDTH 15.4 % (12.0-15.0); WHITE BLOOD COUNT 8.3 x10^3/uL (4.8-10.8)
[2020-04-13 12:21] LABS: ALBUMIN 3.3 g/dL (3.2-5.5); ALBUMIN/GLOBULIN RATIO 0.9 (1.0-2.2); BILIRUBIN,TOTAL 0.6 mg/dL (0.2-1.0); CALCIUM 8.3 mg/dL (8.5-10.3); CREATININE 3.2 mg/dL (0.4-1.0)
== END ==
LOC: LAB.R 11:15
DX: E78.5 Hyperlipidemia, unspecified (principal); R79.89 Other specified abnormal findings of blood chemistry; N18.4 Chronic kidney disease, stage 4 (severe); D63.1 Anemia in chronic kidney disease; D64.9 Anemia, unspecified
CPT/HCPCS: 80053; 85025

== ENCOUNTER → 2020-04-16 | Outpatient (CLI) | payer MEDICARE, OTHER, MEDICAID ==
[2020-04-16 15:22] LABS: BASOPHILS % (AUTO) 0.5 %; EOSINOPHILS # (AUTO) 0.1 10^3/uL (0.0-0.7); EOSINOPHILS % (AUTO) 1.9 %; HGB - HEMOGLOBIN 10.9 g/dL (12.0-16.0); LYMPHOCYTES # (AUTO) 0.9 10^3/uL (1.5-3.5); LYMPHOCYTES % (AUTO) 14.5 %; MEAN CORPUSCULAR HEMOGLOBIN 27.9 pg (27.0-31.0); MEAN CORPUSCULAR VOLUME 92.8 fL (81.0-99.0); MEAN PLATELET VOLUME 9.4 fL (7.9-10.8); MONOCYTES # (AUTO) 0.7 10^3/uL (0.0-1.0); MONOCYTES % (AUTO) 10.6 %; NEUTROPHILS # (AUTO) 4.7 10^3/uL (1.5-6.6); NEUTROPHILS % (AUTO) 72.2 %; PLT - PLATELET COUNT 358 10^3/uL (130-450); RED BLOOD COUNT 3.91 10^6/uL (4.20-5.40); RED CELL DISTRIBUTION WIDTH 15.6 % (12.0-15.0); WHITE BLOOD COUNT 6.5 x10^3/uL (4.8-10.8)
[2020-04-16 15:38] LABS: ALBUMIN 3.1 g/dL (3.2-5.5); BILIRUBIN,TOTAL 0.5 mg/dL (0.2-1.0); CALCIUM 8.5 mg/dL (8.5-10.3); CREATININE 2.5 mg/dL (0.4-1.0); TOTAL PROTEIN 6.3 g/dL (6.7-8.2)
== END ==
LOC: LAB.R 14:00
PROVIDERS: ATTEND Family Medicine
DX: I13.0 Hypertensive heart and chronic kidney disease with heart failure and stage 1 through stage 4 chronic kidney disease, or unspecified chronic kidney disease (principal); I50.84 End stage heart failure; N18.4 Chronic kidney disease, stage 4 (severe); R79.89 Other specified abnormal findings of blood chemistry
CPT/HCPCS: 80053; 85025

== ENCOUNTER → 2020-04-20 | Outpatient (CLI) | payer MEDICARE, OTHER, MEDICAID ==
[2020-04-20 15:52] LABS: CALCIUM 8.3 mg/dL (8.5-10.3); CREATININE 2.3 mg/dL (0.4-1.0)
== END ==
LOC: LAB.R 14:30
DX: E78.5 Hyperlipidemia, unspecified (principal); N18.9 Chronic kidney disease, unspecified; D63.1 Anemia in chronic kidney disease
CPT/HCPCS: 80048

== ENCOUNTER → 2020-04-23 | Outpatient (CLI) | payer MEDICARE, OTHER, MEDICAID ==
[2020-04-23 15:14] LABS: CALCIUM 8.3 mg/dL (8.5-10.3); CREATININE 2.6 mg/dL (0.4-1.0)
== END ==
LOC: LAB.R 13:25
DX: I13.0 Hypertensive heart and chronic kidney disease with heart failure and stage 1 through stage 4 chronic kidney disease, or unspecified chronic kidney disease (principal)
CPT/HCPCS: 80048

== ENCOUNTER 2020-04-24 12:16 | Outpatient (CLI) | payer MEDICARE, OTHER ==
--- NOTE | 2020-04-24 13:05 | XRAY Report ---
PROCEDURE: Chest 2 View X-Ray INDICATIONS: HYPOXIA,SOB LESS RESPONSIVE FOR 1 DAY TECHNIQUE: 2 view(s) of the chest. COMPARISON: 03/27/2018 FINDINGS: Surgical changes and devices: None. Lungs and pleura: Increased size of bilateral pleural effusions more pronounced on the right. Associa son bibasilar atelectasis. Diffuse interstitial prominence. Mediastinum: Mediastinal contours are stable. Heart size is enlarged. Bones and chest wall: No suspicious bony abnormalities. Soft tissues appear unremarkable. IMPRESSION: Findings compatible with CHF/pulmonary edema with bilateral pleural effusions and cardiomegaly. Reviewed by: Mohit Villatoro MD on 04/24/2020 1:03 PM PST Approved by: Mohit Villatoro MD on 04/24/2020 1:03 PM PST Station ID: [id number]
== END 2020-04-24 12:17 | disposition home or self-care (01) ==
LOC: DI 12:16
PROVIDERS: ATTEND Family Medicine
DX: I50.9 Heart failure, unspecified (principal); J90 Pleural effusion, not elsewhere classified; R09.02 Hypoxemia
CPT/HCPCS: 71046

== ENCOUNTER → 2020-04-24 | Outpatient (CLI) | payer MEDICARE, OTHER, MEDICAID ==
[2020-04-24 12:13] LABS: BASOPHILS % (AUTO) 0.3 %; EOSINOPHILS % (AUTO) 0.5 %; HGB - HEMOGLOBIN 11.9 g/dL (12.0-16.0); LYMPHOCYTES % (AUTO) 16.4 %; MEAN CORPUSCULAR HEMOGLOBIN 28.1 pg (27.0-31.0); MEAN CORPUSCULAR VOLUME 93.9 fL (81.0-99.0); MEAN PLATELET VOLUME 9.8 fL (7.9-10.8); MONOCYTES % (AUTO) 15.5 %; NEUTROPHILS # (AUTO) 4.1 10^3/uL (1.5-6.6); NEUTROPHILS % (AUTO) 66.5 %; PLT - PLATELET COUNT 365 10^3/uL (130-450); RED BLOOD COUNT 4.23 10^6/uL (4.20-5.40); RED CELL DISTRIBUTION WIDTH 16.2 % (12.0-15.0); WHITE BLOOD COUNT 6.2 x10^3/uL (4.8-10.8)
[2020-04-24 12:35] LABS: CREATININE 3.1 mg/dL (0.4-1.0)
== END ==
LOC: LAB.R 11:15
PROVIDERS: ATTEND Family Medicine
DX: I11.0 Hypertensive heart disease with heart failure (principal); I50.9 Heart failure, unspecified; I48.91 Unspecified atrial fibrillation; G11.9 Hereditary ataxia, unspecified
CPT/HCPCS: 80048; 85025

== ENCOUNTER 2020-04-25 12:00 | Outpatient (CLI) | payer MEDICARE, OTHER ==
--- NOTE | 2020-04-25 18:09 | CONSULTATION NOTE ---
Palliative Care Follow Up - Referral Referring Provider: Dr. Luigi Fernández Time of Visit: Initated 1200 Referral [facility] Referral Reason: CHF exacerbation/CKD/Change in condition - Information Sources Records reviewed: Previous records reviewed History/Review of Systems obtained from: Patient, Nursing (Audra) Exam limitations: Clinical condition (Cognitive impairment due to dementia and lethargy) - History of Present Illness Update Brief HPI Update: This is an 79-year-old female who was seen and evaluation today at [facility] due to recent change in condition with underlying CHF exacerbation, CKD, and dementia. The patient's had an acute change in condition beginning on 04/24 overnight. She reported not feeling well and was short of breath. Her pulse oximetry was noted to be 70% on room air and oxygen supplementation was initiated. Due to her acute change in condition her facility PCP ordered a rapid Covid test which was negative, lab work as well as a chest x-ray. Her lab work did not indicate leukocytosis and did demonstrate Worsening renal function with baseline history of CKD stage III. The patient's creatinine when 04/24 was 3.1 and it was 2.3 on 04/20. She was ordered for additional torsemide dosing as her chest x-ray demonstrated pulmonary edema with bilateral pleural effusions and cardiomegaly. However, nursing reports that she refused multiple times during attempts to administer additional torsemide dosing yesterday. However, the patient did comply with taking her medications today. Overnight the patient with orthostatic with her blood pressure at the lowest of 80/51. The one call provider was made aware and it was opted that the patient remain in the facility as she appeared to be stable. This is the patient's daughter/DPOA's wish for the patient not to be transferred to the hospital to have comfort focused care within the facility. The patient continues on supplemental oxygen and continues to sleep throughout the day. She is arousable but quickly drifts back off to sleep. She is consuming very little caloric intake per nursing staff. Of note, the patient's weight has jumped up to 229.1 pounds with previous weight at 221 March 30, 2020. Her lower extremity edema is much improved status post Unna boot application. The patient has a history of some underlying anxiety and have responded well to initiation of sertraline administration and as needed Xanax. The patient is seen today resting in bed with her head of her bed at an incline with supplemental oxygen in place. She is demonstrating pursed lip breathing. She was asleep but arousable. She was unable to stay engaged during the course of evaluation and ultimately drifted back off to sleep. Past Medical History: Patient has a past medical history of congestive heart failure, hypertension, atrial fibrillation on anticoagulation, venous insufficiency, venous stasis ulcers, diabetes mellitus type 2, anxiety, depression, dermatitis with pruritus, CKD stage IV. Social History - Living Situation Living arrangement: long-term Support System: The patient has not resided in her home for approximately the last 2 years. She is . Her lives in [place] in a 2 bedroom condo. The patient's daughter, Lisbet lives in [facility] and is working remotely on the benkelman. Lisbet, is very involved in the patient's care and ask as the patient's advocate as her DPOA. The daughter's contact number is [phone]. Medications/Allergies - Medications Home Medications: Ambulatory Orders Medication Instructions Recorded Confirmed Metoprolol Succinate 200 mg PO DAILY 08/28/17 03/28/20 Acetaminophen [Tylenol] 1,000 mg PO TID 03/28/20 03/28/20 Bisacodyl Supp [Dulcolax Supp] 10 mg RC DAILY PRN 03/28/20 03/28/20 Cholecalciferol (Vitamin D3) 2,000 unit PO DAILY 03/28/20 03/28/20 [Vitamin D3] Hydralazine HCl 25 mg ORAL TID 03/28/20 03/28/20 Magnesium Hydroxide [Milk of 30 ml PO DAILY PRN 03/28/20 03/28/20 Magnesia] Miconazole Nitrate 1 applic TP DAILY MDD under 03/28/20 03/28/20 breasts and abdomen Potassium Chloride 10 meq PO DAILY 03/28/20 03/28/20 Senna [Senokot] 2 tab PO DAILY 03/28/20 03/28/20 Senna [Senokot] 2 tab PO DAILY PRN MDD if MOM 03/28/20 03/28/20 ineffective Torsemide 40 mg PO DAILY 03/28/20 03/28/20 Trazodone HCl 25 mg PO QPM 03/28/20 03/28/20 dilTIAZem HCl [Diltiazem 24Hr ER 180 mg PO DAILY 03/28/20 03/28/20 (Cd)] polyethylene glycoL 3350 [Miralax] 17 g PO BID 03/28/20 03/28/20 Alprazolam [Xanax] 1 - 2 tab PO Q8H PRN 04/11/20 04/11/20 Sertraline [Zoloft] 50 mg PO DAILY 04/11/20 04/11/20 oxyCODONE [Roxicodone] 5 mg PO Q8H PRN 04/25/20 04/25/20 - Allergies Allergies/Adverse Reactions: Allergies Allergy/AdvReac Type Severity Reaction Status Date / Time chocolate flavor Allergy Unknown Verified 03/28/20 18:14 Review of Systems - Constitutional Constitutional: reports: Fatigue, Poor appetite, Weight gain (weight 229.1lb up from 220 03/30/2020). denies: Fever - Eyes Eyes: reports: Corrective lenses - Ears, Nose & Throat Ears, Nose & Throat: reports: Dentures - Cardiovascular Cardiovascular: denies: Chest pain, Edema - Respiratory Respiratory: reports: SOB at rest, SOB with exertion. denies: Cough, Wheezing - Gastrointestinal Gastrointestinal: reports: Constipation (controlled), Other (decreased oral intake with change in condition). denies: Abdominal pain - Genitourinary Genitourinary: reports: Incontinence. denies: Dysuria - Musculoskeletal Musculoskeletal: reports: Assistive devices, Transfer issues. denies: Joint pain - Integumentary Integumentary: reports: Other (venous stasis ulcers BLE; skin picking history) - Neurological Neurological: reports: General weakness, Memory problems - Psychiatric Psychiatric: reports: Depression, Anxiety - Endocrine Endocrine: reports: Diabetes type 2 (previously on metformin) - Hematologic/Lymphatic Hematologic/Lymph: Anemia - All Other Systems All Other Systems: reports: Reviewed and negative (ROS limited as patient is a poor historian due to dementia. ROS obtained from nursing and daughter/DPNiki MARCUS.) Physical Exam - Vital Signs Temperature: 36.4 C Pulse Rate: 79 Respiratory Rate: 19 O2 Saturation: 93 (on 2L via NC at rest) Blood Pressure: 144/89 (left wrist cuff) - Physical Exam General Appearance: positive: Alert, Lethargic, Other (obese, sitting in bed with supplemental oxygen in place) Eyes Bilateral: positive: Normal inspection ENT: positive: No signs of dehydration Neck: positive: Trachea midline Cardiovascular: positive: Regular rate & rhythm, Other (distant heart sounds due to body habitus) Respiratory: positive: Diminished in bases, Other (pursed lip breathing with shallow breaths). negative: Wheezes Abdomen: positive: Non-tender, Soft, Nml bowel sounds, Obese Skin: positive: Bruising, Other (Tubigrip in place to BLE--see nursing notes for full details; scattered scabs to dorsal aspect of b/l hands without erythema, warmth or discharge) Extremities: positive: Pedal edema (Trace BLE edema that is significantly improved from prior evaluations) Neurologic/Psychiatric: positive: Other (Unable to assess orientation today as patient is lethargic and unable to stay awake to remain engaged) Palliative Care - POLST Patient has POLST: Yes POLST Status: DNR, Comfort Measures Performance Status: Patient has taken a significant decline functionally. She was able to ambulate short distances with physical therapy staff with oversight. She just obtained a new wheelchair. Now, she is more lethargic with minimal oral intake with increased assistance required with ADLs. PPS 30% - Palliative Care Discussion: The patient has a complex cardiac history with underlying chronic kidney disease stage IV and has rebounded several times with her renal function but never quite back to where she was previously. Acutely, the patient is experiencing a congestive heart failure exacerbation with pulmonary congestion not noted in the periphery and due to her underlying dementia is receptive to always allowing administration of her medications. It is been a fine dance between adequately diuresing the patient and not Further exacerbating her underlying renal impairment. Given her overall lethargy, minimal oral intake, and continue to weight trend increase she is showing evidence of further decline. This decline is further evidenced by her now requiring oxygen supplementation to maintain her O2 saturation and increase in her creatinine to 3.1 from her baseline of approximately 2.5-2.6. The patient's daughter/DPOA has been a strong advocate for the patient. The patient's daughter, Lisbet recognizes the decline that the patient has experienced and had In light of this recent congestive heart failure exacerbation the daughter wishes to focus on comfort measures and not prolonging the patient's life. The patient's daughter is very clear that she does not wish her mother to be transferred to the hospital nor to have any IV fluids administered within the facility. This STRUCTURAL [employer]OP HELPER introduced Hospice services and the patient's daughter wishes to have the patient transition to hospice for optimize management of her end-of-life symptom management. Reviewed POLST at length with the daughter and wish to proceed with DN AR, comfort measures, Antibiotic therapy for comfort, and no artificial nutrition by tube. POLST was completed verbally over the phone with her. As the goal is primarily on [place] comfort discussed at length with the patient's daughter regarding deprescribing. The patient's daughter is clear that as long as the patient has awareness she wishes for her the patient to have participation in her care and to continue to have the right to refuse medication but is open to having facility staff continue to offer administration of more than one occasion and after 3 times to discontinue a the offer. Due to the recent search of the coronavirus the patient's daughter has not been able to visit the patient in the facility. Given the recent clinical changes this is difficult for the patient's daughter to be a way from her as all the patient has been expressing to Lisbet has been how much she desires hugs. Initially, the patient's and daughter anticipated having hospice services within the patient's home environment. However, the daughter is now recognizing that she and the patient's spouse would have a difficult time supporting that transition and caregiving needs and recognizes the patient is the most optimal environment. The patient's daughter, Lisbet does have continued questions regarding visitation within the facility which this STRUCTURAL SHOP HELPER has left messages for facility staff regarding visitation as well as promptly the daughter to make contact with administration at the facility for clarification regarding visitation. Given the patient's decreased oral intake, multiple co-morbidities and level of alertness her prognosis is weeks to a month, as best we know. Results - Lab Results Lab results reviewed: Yes Lab and Imaging Results: 04/24/2020 Sodium 138, potassium 4.8, BUN 70, creatinine 3.1, glucose 105, calcium 8.0, WBC 6.2, hemoglobin 11.9, hematocrit 39.7%, MCV 93.9, RDW 16.2, neutrophil count 4.1 Chest x-ray 04/24/2020 impression "findings compatible with CHF/pulmonary edema with bilateral pleural effusions and cardiomegaly." Impression and Recommendations - Palliative Care Impression: This is an 79-year-old female who presents with acute change in condition due to CHF exacerbation and worsening renal function in the setting of chronic kidney disease stage IV and underlying dementia. The patient's lower extremity edema is presently controlled but she is have the evidence of pulmonary edema diagnosed imaging. The patient has now transition to supplemental oxygen to maintain her oxygen supplementation as well as for her her comfort and decreased anxiety. Patient's daughter/DPOA wishes to transition to hospice services to optimize the patient's comfort and she has no desire for the patient to be transferred to the hospital. POLST updated to reflect the patient's daughter/DPOA wishes. Recommendations/Counseling Done: 1. CHF exacerbation. Most recent weight 229.1 pounds up from 220 pounds in late March 2020. Lower extremity edema is controlled. Chest x-ray performed 04/24 demonstrating pulmonary edema indicative of exacerbation of the patient's congestive heart failure. She declined additional diuretic dosing yesterday but was received today. Given the patient's underlying renal impairments due to CKD stage IV and her presents lethargic state with minimal oral intake it is unclear that she will be able to rebound as she has been able to do previously. In light of the patient's recent sharp functional decline, the patient's daughter wishes to pursue hospice services and to focus on having the patient with in the facility focused on quality of life, symptom management so that the patient may have a comfortable and dignified . Continue supplemental oxygen to maintain oxygen saturation as well as for comfort. Continue to monitor and provide support. 2. Chronic kidney disease stage IV. Longstanding history. Creatinine baseline approximately 2.5-2.6. Recent jump in creatinine indicative of worsening renal function to 3.1 on lab work 04/24/2020. The patient's daughter/DPOA does not wish to pursue dialysis interventions and wishes to focus on comfort measures withIn the facility. 3. Dementia. Chronic. Progressive. Patient is on no disease modifying agents. Patient has a history of falls. Presently on sertraline for control of her anxiety. She also has Xanax as needed for anxiety. Given the patient's advanced age and chronic morbidities a gradual decline is expected. 4. Afib. Presently on coumadin therapy for anticoagulation. Continue metoprolol and diltiazem for rate control. Reviewed at with daughter/POA regarding the burdens and benefits of coumadin, including fact that given the patient' s poor nutritional status that INR cannot remain in a consistently therapeutic and this would require frequent blood draws that can be burdensome. Cointuing coumadin in the patient's present clinical state would place her at high risk for bleeding risk vs continuation of coumadin and potential stroke. As the focus is quality of life and symptom management as the goal, daughter wishes to proceed with discontinuation of coumadin therapy after weighing risk vs burden of continuation. Discontinue all PT/INR orders for lab draw. 5. Advanced care planning. The patient has had a slow functional decline over several years and recent bleed in the last 24 to 48 hours has had a sharp acute decline with minimal oral intake in the setting of CHF exacerbation and worsening acute on chronic renal impairment. Lengthy conversation with the patient's daughter/DPOA and although wish to hope for the best the daughter is has insight into the patient's clinical decline and wishes to focus on comfort measures within this facility and to ensure that the patient is not transferred to the hospital for further interventions. Given the patient's alertness discussed with the daughter deprescribing and in agreement. Discontinue ferrous gluconate, gelatin capsules, melatonin, and multivitamin. Daughter/DPOA wishes to optimize her time with the patient as well as with the patient's spouse. Implored her to follow-up with the facility in regard to visitation for pending hospice as well as hospice patients. Recommend initiation of oxycodone 5 mg every 8 hours as needed for pain/shortness of breath/or respirations greater than 25 breaths/min to optimize the patient's comfort. Daughter in agreement with initiation of oxycodone. Supportive listening provided to daughter and referral placed to [facility] hospice care at the daughter's request and agreement from her PCP, Dr. Fernández. Time Spent: CPT 94988 Plan of care reviewed with nursing staff with understanding verbalized. Contacted patient's daughter/DPOA, Lisbet Goodwin and lengthily conversation regarding goals of care in view of escalation versus de-escalation of care. The patient's daughter wished to proceed with de-escalation of care and focus on quality life, symptom management and comfort measures within the facility. Introduced the role of hospice services with questions answered and addressed with the daughter. Supportive listening provided. Updated the patient's PCP, Dr. Fernández who is also in agreement with a transition to hospice services. Disclaimer: The chart note was formulated using voice recognition technology and unfortunately sound alike errors may occur.
== END 2020-04-25 12:01 | disposition home or self-care (01) ==
LOC: PC 12:00
PROVIDERS: ATTEND Nurse Practitioner Family
DX: Z51.5 Encounter for palliative care (principal); I13.0 Hypertensive heart and chronic kidney disease with heart failure and stage 1 through stage 4 chronic kidney disease, or unspecified chronic kidney disease; I50.9 Heart failure, unspecified; N18.4 Chronic kidney disease, stage 4 (severe); E11.22 Type 2 diabetes mellitus with diabetic chronic kidney disease; F03.90 Unspecified dementia, unspecified severity, without behavioral disturbance, psychotic disturbance, mood disturbance, and anxiety; I48.91 Unspecified atrial fibrillation; F41.9 Anxiety disorder, unspecified; I87.8 Other specified disorders of veins; I83.018 Varicose veins of right lower extremity with ulcer other part of lower leg; I83.028 Varicose veins of left lower extremity with ulcer other part of lower leg; Z79.01 Long term (current) use of anticoagulants; Z99.81 Dependence on supplemental oxygen; Z66 Do not resuscitate
CPT/HCPCS: 99309